=== PATIENT | female | born 1955 | race Caucasian/White ===

== ENCOUNTER 2017-12-11 17:49 | Inpatient (IN) | payer MEDICAID ==
[~2017-12-11] VITALS: Ht 160 cm; Wt 72.6 kg
--- NOTE | ~2017-12-11 | MORECARE ---
CASE MANAGEMENT DISCHARGE SUMMARY PATIENT: AFSANEH STORM UNIT: [id number] ADM DATE: 12/11/17 AGE: 62 : 57 SEX: F ROOM/BED: D.1213 AUTHOR: SATURNINO,DOC PHYSICIAN: REFERRING PHYSICIAN: MAYA MORGAN MD DATE OF SERVICE: 12/12/17 Discharge Plan Patient Name: AFSANEH STORM Facility: [facility]:[place] : 1955 Planned Disposition: Home Anticipated Discharge Date: Discharge Date: Expected LOS: Initial Reviewer: [email or web address] Initial Review Date: 12/12/2017 Generated: 12/12/17 8:17 pm Comments DCP- Discharge Planning Updated by [email or web address]: Reina Triana on 12/12/17 6:[address] Patient Name: AFSANEH STORM Admission Status: ER Accout number: [id number] Admission Date: 12-11-2017 : 1955 Admission Diagnosis:NAUSEA WITH VOMITING, UNSPECIFIED Attending: MAYA MORGAN Current LOS: 1 Anticipated DC Date: Planned Disposition: Home Primary Insurance: MEDICAID [place] Discharge Planning Comments: CM MET WITH PATIENT AT BEDSIDE. PATIENT STATES THAT SHE LIVES AT HOME WITH HER SISTER AND BROTHER. PATIENT STATES THAT SHE HAS A WHEELCHAIR, WALKER AND HOME HEALTH BUT CAN'T TELL ME WHAT COMPANY. TOLD CM TO CHECK WITH SISTER YARITZA. CM WILL CONTINUE TO FOLLOW AND ASSIST NEEDED WITH DISCHARGE PLANNING / NEEDS. Missile Pad Mechanic: Reina Triana DCPIA - Discharge Planning Initial Assessment Updated by [email or web address]: Reina Triana on 12/12/17 7:07 pm * Is the patient Alert and Oriented? Yes * How many steps to enter\exit or inside your home? * PCP UNABLE TO TELL ME * [facility] * Preadmission Environment Home with Family * ADLs Partial Dependent * Partial ADLs (Assistance needed) Ambulation Bathing Dressing Eating Medication Management Toileting * Equipment None * List name and contact numbers for known caregivers / representatives who currently or will assist patient after discharge: YARTIZA [phone] * Verbal permission to speak to the caregivers and representatives has been obtained from the patient. Yes * Community resources currently utilized Home Health * Please name any agencies selected above. UNKNOWN * Additional services required to return to the preadmission environment? No * Can the patient safely return to the preadmission environment? Yes * Has this patient been hospitalized within the prior 30 days at any hospital? No Last DP export: 12/12/17 6:10 Patient Name: AFSANEH STORM Page 26449 at 1917 All edits/amendments must be made on the electronic document DICTATION DATE: 12/12/171916 CATERERS HELPER: VIET 12/12/171916 RPT#: [id number] DC DATE: STATUS: ADM IN [facility] [address] [place] [address] END OF REPORT
--- NOTE | ~2017-12-11 | MORECARE ---
CASE MANAGEMENT DISCHARGE SUMMARY PATIENT: AFSANEH STORM UNIT: [id number] ADM DATE: 12/11/17 AGE: 62 : 57 SEX: F ROOM/BED: D.1213 AUTHOR: CHRIS MATAMOROS PHYSICIAN: REFERRING PHYSICIAN: MAYA MORGAN MD DATE OF SERVICE: 12/12/17 Discharge Plan Patient Name: AFSANEH STORM Facility: [facility]:[place] : 1955 Planned Disposition: Home Anticipated Discharge Date: Discharge Date: Expected LOS: Initial Reviewer: [email or web address] Initial Review Date: 12/12/2017 Generated: 12/12/17 8:10 pm DCPIA - Discharge Planning Initial Assessment Updated by [email or web address]: Reina Triana on 12/12/17 7:07 pm * Is the patient Alert and Oriented? Yes * How many steps to enter\exit or inside your home? * PCP UNABLE TO TELL ME * Pharmacy [facility] * Preadmission Environment Home with Family * ADLs Partial Dependent * Partial ADLs (Assistance needed) Ambulation Bathing Dressing Eating Medication Management Toileting * Equipment None * List name and contact numbers for known caregivers / representatives who currently or will assist patient after discharge: YARITZA [phone] * Verbal permission to speak to the caregivers and representatives has been obtained from the patient. Yes * Community resources currently utilized Home Health * Please name any agencies selected above. UNKNOWN * Additional services required to return to the preadmission environment? No * Can the patient safely return to the preadmission environment? Yes * Has this patient been hospitalized within the prior 30 days at any hospital? No Last DP export: 12/12/17 12:52 Patient Name: AFSANEH STORM Page 93880 at 1910 All edits/amendments must be made on the electronic document DICTATION DATE: 12/12/171909 TRAUMA THERAPIST: VIET 12/12/171909 RPT#: [id number] DC DATE: STATUS: ADM IN [facility] [address] [place] [address] END OF REPORT
--- NOTE | ~2017-12-11 | MORECARE ---
CASE MANAGEMENT DISCHARGE SUMMARY PATIENT: AFSANEH STORM UNIT: [id number] ADM DATE: 12/11/17 AGE: 62 : 57 SEX: F ROOM/BED: D.1213 AUTHOR: SATURNINO,DOC PHYSICIAN: REFERRING PHYSICIAN: MAYA MORGAN MD DATE OF SERVICE: 12/13/17 Discharge Plan Patient Name: AFSANEH STORM Facility: [facility]:[place] : 1955 Planned Disposition: Home Anticipated Discharge Date: Discharge Date: 12/13/2017 Expected LOS: Initial Reviewer: [email or web address] Initial Review Date: 12/12/2017 Generated: 12/13/17 8:56 pm Comments DCP- Discharge Planning Updated by [email or web address]: Reina Triana on 12/12/17 6:[address] Patient Name: AFSANEH STORM Admission Status: ER Accout number: [id number] Admission Date: 12-11-2017 : 1955 Admission Diagnosis:NAUSEA WITH VOMITING, UNSPECIFIED Attending: MAYA MORGAN Current LOS: 1 Anticipated DC Date: Planned Disposition: Home Primary Insurance: MEDICAID [place] Discharge Planning Comments: CM MET WITH PATIENT AT BEDSIDE. PATIENT STATES THAT SHE LIVES AT HOME WITH HER SISTER AND BROTHER. PATIENT STATES THAT SHE HAS A WHEELCHAIR, WALKER AND HOME HEALTH BUT CAN'T TELL ME WHAT COMPANY. TOLD CM TO CHECK WITH SISTER YARITZA. CM WILL CONTINUE TO FOLLOW AND ASSIST NEEDED WITH DISCHARGE PLANNING / NEEDS. Director Heart: Reina Triana DCPIA - Discharge Planning Initial Assessment Updated by [email or web address]: Reina Triana on 12/12/17 7:07 pm * Is the patient Alert and Oriented? Yes * How many steps to enter\exit or inside your home? * PCP UNABLE TO TELL ME * [facility] * Preadmission Environment Home with Family * ADLs Partial Dependent * Partial ADLs (Assistance needed) Ambulation Bathing Dressing Eating Medication Management Toileting * Equipment None * List name and contact numbers for known caregivers / representatives who currently or will assist patient after discharge: YARITZA [phone] * Verbal permission to speak to the caregivers and representatives has been obtained from the patient. Yes * Community resources currently utilized Home Health * Please name any agencies selected above. UNKNOWN * Additional services required to return to the preadmission environment? No * Can the patient safely return to the preadmission environment? Yes * Has this patient been hospitalized within the prior 30 days at any hospital? No Last DP export: 12/12/17 6:17 Patient Name: AFSANEH STORM Page 77418 at 1955 All edits/amendments must be made on the electronic document DICTATION DATE: 12/13/171955 COMMERCIAL LITIGATION PARALEGAL: VIET 12/13/171955 RPT#: [id number] DC DATE:12/13/17 STATUS: DIS IN [facility] [address] [place] [address] END OF REPORT
--- NOTE | ~2017-12-11 | MORECARE ---
CASE MANAGEMENT DISCHARGE SUMMARY PATIENT: AFSANEH STORM UNIT: [id number] ADM DATE: 12/11/17 AGE: 62 : 57 SEX: F ROOM/BED: D.1213 AUTHOR: CHRIS MATAMOROS PHYSICIAN: REFERRING PHYSICIAN: MAYA MORGAN MD DATE OF SERVICE: 12/12/17 Discharge Plan Patient Name: AFSANEH STORM Facility: [facility]:[place] : 1955 Planned Disposition: Home Anticipated Discharge Date: Discharge Date: Expected LOS: Initial Reviewer: [email or web address] Initial Review Date: 12/12/2017 Generated: 12/12/17 2:52 pm Patient Name: AFSANEH STORM Page 70315 at 1352 All edits/amendments must be made on the electronic document DICTATION DATE: 12/12/17 1351 PLATE DRYING MACHINE TENDER: VIET 12/12/17 1351 RPT#: [id number] DC DATE: STATUS: ADM IN [facility] [address] [place] [address] END OF REPORT
[2017-12-11 19:44] LABS: APPEARANCE CLEAR (CLEAR); BILIRUBIN NEGATIVE (NEGATIVE); COLOR YELLOW (YELLOW); GLUCOSE NEGATIVE (NEGATIVE); KETONE NEGATIVE (NEGATIVE); NITRITE NEGATIVE (NEGATIVE); PROTEIN NEGATIVE (NEGATIVE); UROBILINOGEN NORMAL (NORMAL)
[2017-12-11 20:16] LABS: ALBUMIN 2.5 g/dL (3.4-5.0); ALKALINE PHOSPHATASE 66 U/L (46-116); ALT (SGPT) 14 U/L (10-68); BILIRUBIN - TOTAL 0.14 mg/dL (0.2-1.3); CALC OSMOLALITY 281 mosm/kg (275-300); CALCIUM 8.3 mg/dL (8.5-10.1); CARBON DIOXIDE 24.4 mmol/L (21.0-32.0); CHLORIDE - SERUM 108 mmol/L (98-107); GLUCOSE 137 mg/dL (74-106); POTASSIUM - SERUM 4.2 mmol/L (3.5-5.1); SODIUM 141 mmol/L (136-145); UREA NITROGEN 11 mg/dL (7-18); eGFR NON AFRICAN AMERICAN 60 mL/min (90-120)
[2017-12-11 20:19] LABS: AMYLASE - SERUM 72 U/L (25-115); BASOPHILS 0.3 % (0-2); EOSINOPHILS 3.1 % (0-7); HEMATOCRIT 35.4 % (36.0-48.0); HEMOGLOBIN 11.6 g/dL (12-16); IMMATURE GRANULOCYTES 0.3 % (0-5); LIPASE 145 U/L (73-393); LYMPHOCYTES 21.9 % (15-50); MCH 30.7 pg (26.0-34.0); MCHC 32.8 g/dL (31.0-37.0); MCV 93.7 fL (80.0-100.0); MEAN PLATELET VOLUME 10.2 fL (7.4-10.4); MONOCYTES 5.8 % (2-11); NEUTROPHILS 68.6 % (40-80); PLATELET COUNT 196 10x3/uL (130-400); RBC 3.78 10x6/uL (4.00-5.40); RDW 14.1 % (11.5-14.5); WBC 7.4 10x3/uL (4.8-10.8)
[2017-12-11 20:41] LABS: TROPONIN-I < 0.017 ng/mL (0.000-0.060)
[2017-12-12] VITALS (7 sets, daily range): BP systolic 144–187; BP diastolic 70–98; BMI 28.4; BMI 28.3
[2017-12-12] MEDS ORDERED: ZESTRIL40 MG PO (00:04)
[2017-12-12] MEDS ORDERED: ZOCOR20 MG PO (00:05)
[2017-12-12] MEDS ORDERED: HYDROCHLOROTH12.5 M1 PO (00:06)
[2017-12-12] MEDS ORDERED: KEPPRA500 MG PO (00:07)
[2017-12-12 04:55] LABS: BASOPHILS 0.1 % (0-2); HEMATOCRIT 36.6 % (36.0-48.0); HEMOGLOBIN 11.6 g/dL (12-16); IMMATURE GRANULOCYTES 0.2 % (0-5); LYMPHOCYTES 18.6 % (15-50); MCH 30.3 pg (26.0-34.0); MCHC 31.7 g/dL (31.0-37.0); MCV 95.6 fL (80.0-100.0); MEAN PLATELET VOLUME 10.2 fL (7.4-10.4); MONOCYTES 7.7 % (2-11); NEUTROPHILS 71.4 % (40-80); PLATELET COUNT 195 10x3/uL (130-400); RBC 3.83 10x6/uL (4.00-5.40); RDW 14.2 % (11.5-14.5); WBC 8.9 10x3/uL (4.8-10.8)
[2017-12-12 05:17] LABS: ALBUMIN 2.7 g/dL (3.4-5.0); ANION GAP 12.9 mmol/L (8-16); BILIRUBIN - TOTAL 0.24 mg/dL (0.2-1.3); CALCIUM 8.5 mg/dL (8.5-10.1); CARBON DIOXIDE 27.4 mmol/L (21.0-32.0); POTASSIUM - SERUM 4.3 mmol/L (3.5-5.1); PROTEIN - SERUM 7.4 g/dL (6.4-8.2)
[2017-12-13 00:17] VITALS: BP 188/87
[2017-12-13 04:59] VITALS: BP 183/60
[2017-12-13 05:31] LABS: ANION GAP 15.4 mmol/L (8-16); CALCIUM 8.3 mg/dL (8.5-10.1); CARBON DIOXIDE 23.9 mmol/L (21.0-32.0); CREATININE - SERUM 0.9 mg/dL (0.6-1.3); HEMATOCRIT 36.3 % (36.0-48.0); HEMOGLOBIN 11.8 g/dL (12-16); MCH 30.6 pg (26.0-34.0); MCHC 32.5 g/dL (31.0-37.0); MCV 94.3 fL (80.0-100.0); MEAN PLATELET VOLUME 10.4 fL (7.4-10.4); NEUTROPHILS 66.7 % (40-80); PLATELET COUNT 156 10x3/uL (130-400); POTASSIUM - SERUM 4.3 mmol/L (3.5-5.1); RBC 3.85 10x6/uL (4.00-5.40); RDW 13.9 % (11.5-14.5); WBC 6.8 10x3/uL (4.8-10.8)
[2017-12-13 07:19] VITALS: BP 181/70
[2017-12-13 11:12] VITALS: BP 152/72
[2017-12-13 14:39] VITALS: Ht 160 cm; Wt 72.6 kg
[2017-12-13 16:48] VITALS: BP 146/72
[2017-12-14 10:13] LABS: CEA 3.3 ng/mL (0.0-4.7)
[2017-12-14 11:10] LABS: HEPATITIS C ANTIBODY <0.1 (0.0-0.9)
== END 2017-12-13 17:21 | disposition home or self-care (01) | DRG 376 ==
LOC: D.ER 17:49 → EDBD 17:49 → D.M3 22:23
PROVIDERS: Family Medicine; Internal Medicine Gastroenterology; Internal Medicine Hematology & Oncology; Internal Medicine Nephrology
PROC: 0DBP8ZX Excision of Rectum, Via Natural or Artificial Opening Endoscopic, Diagnostic (ICD-10-PCS; principal; 2017-12-13 11:30)
DX: C20 Malignant neoplasm of rectum (principal); D64.9 Anemia, unspecified; I10 Essential (primary) hypertension; E78.5 Hyperlipidemia, unspecified; E11.9 Type 2 diabetes mellitus without complications; I69.320 Aphasia following cerebral infarction; K21.9 Gastro-esophageal reflux disease without esophagitis; Z72.89 Other problems related to lifestyle

== ENCOUNTER 2017-12-17 09:02 | Inpatient (IN) | payer MEDICAID ==
[~2017-12-17] VITALS: Ht 152.4 cm; Wt 83.5 kg
--- NOTE | ~2017-12-17 | MORECARE ---
CASE MANAGEMENT DISCHARGE SUMMARY PATIENT: AFSANEH STORM UNIT: [id number] ADM DATE: 12/17/17 AGE: 62 : 57 SEX: F ROOM/BED: D.2222 AUTHOR: CHRIS MATAMOROS PHYSICIAN: REFERRING PHYSICIAN: KAYLAN FORD MD DATE OF SERVICE: 12/20/17 Discharge Plan Patient Name: AFSANEH STORM [facility] : 1955 Planned Disposition: Home Anticipated Discharge Date: 12/20/17 Discharge Date: Expected LOS: 3 Initial Reviewer: [email or web address] Initial Review Date: 12/20/2017 Generated: 12/20/17 1:58 pm External Providers External Provider: OTHER-OTHER Next Contact Date: Service Request Date: Service Type: Resolution: Reviewer: Comments: External Provider: [facility] Next Contact Date: Service Request Date: Service Type: Resolution: Reviewer: Comments: Patient Name: AFSANEH STORM Page 19545 at 1258 All edits/amendments must be made on the electronic document DICTATION DATE: 12/20/17 1257 ACCOUNT MANAGER EMPLOYEE BENEFITS: VIET 12/20/17 1257 RPT#: [id number] DC DATE: STATUS: ADM IN [facility] [address] [place] [address] END OF REPORT
--- NOTE | ~2017-12-17 | OP ---
PATIENT NAME: AFSANEH STORM MEDICAL RECORD: [id number] :57 LOCATION:D.MS [place] ADMISSION DATE:12/17/17 SURGEON: ROBLES FORD MD DATE OF OPERATION: 12/17/2017 PREOPERATIVE DIAGNOSES: 1. Rectal cancer. 2. History of CVA with expressive aphasia. 3. Diabetes mellitus. 4. Hyperlipidemia. 5. Hypertension. 6. GERD. 7. Alcohol dependence. POSTOPERATIVE DIAGNOSES: 1. Rectal cancer. 2. History of CVA with expressive aphasia. 3. Diabetes mellitus. 4. Hyperlipidemia. 5. Hypertension. 6. GERD. 7. Alcohol dependence. PROCEDURES: 1. Laparoscopic to open low anterior resection with diverting ileostomy. 2. Supracervical total abdominal hysterectomy. SURGEON: Robles Ford MD IMMIGRATION CASE WORKER: Sarah Domínguez APRN REPORT OF OPERATION: The patient's abdomen and pelvis were prepped and draped in sterile fashion. A skin incision was made in the lower midline. Electrocautery was used to dissect through the subcutaneous tissues and fascia and then we entered the abdominal cavity. Once in the abdomen, GelPort was inserted with a 5-mm trocar within it. With the GelPort in place, we placed a 5-mm trocar in the right lateral abdomen and a 12-mm trocar in the right lower quadrant just anterior to the anterior-superior iliac crest. We tried to manage the patient's pelvis, but the pelvis was very tight and the patient had large masses on the uterus, which were likely fibroids, but they were so large and pendulous that they were making it difficult to visualize anything. At this point, we discontinued trying a laparoscopic procedure. The ports and insufflation were then removed. The lower midline incision was extended up to the umbilicus and a large Brett drape was inserted. We still tried to manipulate the uterus on the way, but it was covering up somewhat to the tissue that we could not see, so I elected at this point to take out the patient's uterus. The round ligament and the lateral vessels were all clamped and tied off with 3-0 silk ties. The ovaries were left in place. We then freed up tissue overlying the uterus, and after clamping the distal uterus, we transected it using an electrocautery. The distal uterus was oversewn using running #1 Vicryls times 2. At the conclusion of this, the uterus appeared to be intact with no sign of any bleeding. The uterus was sent off for permanent specimen. At this point, we could visualize in the patient's pelvis. We pulled up the rectum and freed up the peritoneum on each side. Once we did this, a window was made on the base of the proximal rectum and this was transected with a 60 blue OPERATIVE REPORT [id number] AFSANEH STORM K load BERNABE stapler. The mesentery was taken down with sequential clamp and tie technique using 3-0 silks. We then entered the posterior avascular plane of the mesorectum and dissected down through this. Once we got this freed up, then we went anterior to the rectum, opened up this fascial layer, and entered the anterior aspect overlying the rectal tissue. This just left the lateral stalk vessels, which were taken down with Harmonic scalpel. At this point, we had the rectum pulled up and I was able to feel past the mass. A window was made in the mesorectum and a 30 blue load TA stapler was used to transect the rectal tissue. The underlying mesenteric tissue was clamped and tied with 3-0 silk. We sent this off for frozen specimen and it showed that the distal margin did have a tumor present even though grossly it did not appear to be present in the tissue. I then took off another 1.5 cm of tissue after dissecting out the distal rectum and this was clamped off with a 30 blue load TA stapler. This grossly had no sign of any abnormalities, and due to the low nature in the pelvis of this and remaining rectal tissue, I elected not to send it off for frozen because I was not prepared to perform an APR on the patient at this time. I went ahead and grasped the distal sigmoid colon and opened this up using electrocautery. A 29 EEA anvil was inserted and the distal end of the sigmoid colon was oversewn in a pursestring fashion with a 2-0 Prolene. We then inserted the anal dilators into the rectum followed by the EEA stapler. An end-to-end anastomosis was performed with a 29 EEA stapler. At the conclusion of this, we had 2 solid rings of tissue. We then inspected the anastomosis under water by instilling air in the rectum and there was no sign of a leak. We then irrigated out the pelvis and abdomen and assured there was no sign of any bleeding, which there was none. The small bowel was run from the terminal ileum proximally for about 30 cm. At this point, we clamped off this portion of the small bowel. An opening was made in the anterior abdominal wall on the right upper quadrant, and using electrocautery, we dissected through the subcutaneous tissues and anterior fascia in a cruciate fashion. We then split the muscle longitudinally with its fibers and then opened up the posterior fascia transversely. We then eviscerated this portion of small bowel through this opening for loop diverting ileostomy. The midline fascia was then closed with running #1 loop PDS times 2. The subcutaneous tissues were irrigated out thoroughly with normal saline and then the skin incisions were closed with elise. We then matured the loop ileostomy in a Lisandra fashion using multiple interrupted 4-0 Vicryls. A 14-Jamaican red rubber catheter was used as a bridge and placed in a circular fashion overlying the tissue, being brought together by 3-0 silks. This ring of red rubber catheter and the ileostomy were then placed in ostomy bag and the dressings were applied. COMPLICATIONS: None. CONDITION: Stable. ANESTHESIA: General endotracheal. BLOOD LOSS: 150 mL. TRANSINT:[id number] Voice Confirmation ID: [id number] DOCUMENT ID: [id number] OPERATIVE REPORT [id number] AFSANEH STORM CHRISTIAN MD at 0916 CC: MARLYN PEREZ MD and MARY JO KERR DO [id number] DICTATION DATE: 12/17/17 1541 CRIMINAL RESEARCHER: 12/17/17 1640 ADM IN [facility] [address] [place] [address]
--- NOTE | ~2017-12-17 | MORECARE ---
CASE MANAGEMENT DISCHARGE SUMMARY PATIENT: AFSANEH STORM UNIT: [id number] ADM DATE: 12/17/17 AGE: 62 : 57 SEX: F ROOM/BED: D.2222 AUTHOR: CHRIS MATAMOROS PHYSICIAN: REFERRING PHYSICIAN: KAYLAN FORD MD DATE OF SERVICE: 12/20/17 Discharge Plan Patient Name: AFSANEH STORM Facility: [facility]:[place] : 1955 Planned Disposition: Home Anticipated Discharge Date: 12/20/17 Discharge Date: Expected LOS: 3 Initial Reviewer: [email or web address] Initial Review Date: 12/20/2017 Generated: 12/20/17 2:16 pm Comments DCP- Discharge Planning Updated by [email or web address]: Daisy Wood on 12/20/17 12:[address] Patient Name: AFSANEH STORM Admission Status: Elective Accout number: [id number] Admission Date: 12-17-2017 : 1955 Admission Diagnosis:MALIGNANT NEOPLASM OF RECTUM Attending: KAYLAN FORD Current LOS: 3 Anticipated DC Date: 12-20-2017 Planned Disposition: Home Primary Insurance: MEDICAID [place] Discharge Planning Comments: CM met with patient, she is alone in the room. She has expressive aphasia and gives me permission to call her sister for assessment. I spoke with her sister, Mary, and her sister states she lives with her. States she has a personal healthcare market consultant that lives in the home ([facility]) and also has [facility] that comes in 5 days a week for house keeping and bathing. She would like home health services for ostomy care. I called and spoke with Lily at [facility]. I called [facility] and spoke with Josh and orders sent for Ostomy supplies. Mary states she will pick patient up at discharge. Walk test completed per RT and she does not qualify for home oxygen. CM will continue to follow and assist with discharge planning/needs. She will discharge home today with home health. Hold Worker: Daisy Wood DCPIA - Discharge Planning Initial Assessment Updated by [email or web address]: Daisy Wood on 12/20/17 12:59 pm * Is the patient Alert and Oriented? Yes * How many steps to enter\\exit or inside your home? * PCP "Roula" at [facility] * Pharmacy [facility] * Preadmission Environment Home with Family * ADLs Partial Dependent * Partial ADLs (Assistance needed) Ambulation Bathing Dressing Medication Management * Equipment Other Walker * Other Equipment Blood Pressure machine * List name and contact numbers for known caregivers / representatives who currently or will assist patient after discharge: Mary sparks - [phone] * Verbal permission to speak to the caregivers and representatives has been obtained from the patient. Yes * Community resources currently utilized Private Duty Care * Please name any agencies selected above. [facility] * Additional services required to return to the preadmission environment? Yes * Can the patient safely return to the preadmission environment? Yes * Has this patient been hospitalized within the prior 30 days at any hospital? No Last DP export: 12/20/17 12:07 p Patient Name: AFSANEH STORM Page 62629 at 1316 All edits/amendments must be made on the electronic document DICTATION DATE: 12/20/17 1316 TELEVISION PRODUCTION CLERK: VIET 12/20/17 1316 RPT#: [id number] DC DATE: STATUS: ADM IN [facility] [address] [place] [address] END OF REPORT
--- NOTE | ~2017-12-17 | MORECARE ---
CASE MANAGEMENT DISCHARGE SUMMARY PATIENT: AFSANEH STORM UNIT: [id number] ADM DATE: 12/17/17 AGE: 62 : 57 SEX: F ROOM/BED: D.2222 AUTHOR: CHRIS MATAMOROS PHYSICIAN: REFERRING PHYSICIAN: KAYLAN FORD MD DATE OF SERVICE: 12/20/17 Discharge Plan Patient Name: AFSANEH STORM [facility] [facility] 1955 Planned Disposition: Home Anticipated Discharge Date: 12/20/17 Discharge Date: Expected LOS: 3 Initial Reviewer: [email or web address] Initial Review Date: 12/20/2017 Generated: 12/20/17 2:07 pm DCPIA - Discharge Planning Initial Assessment Updated by [email or web address]: Daisy Wood on 12/20/17 12:59 pm * Is the patient Alert and Oriented? Yes * How many steps to enter\\exit or inside your home? * PCP "Roula" at [facility] * Pharmacy [facility] on [facility]/[place] * Preadmission Environment Home with Family * ADLs Partial Dependent * Partial ADLs (Assistance needed) Ambulation Bathing Dressing Medication Management * Equipment Other Walker * Other Equipment Blood Pressure machine * List name and contact numbers for known caregivers / representatives who currently or will assist patient after discharge: Mary [facility] - [phone] * Verbal permission to speak to the caregivers and representatives has been obtained from the patient. Yes * Community resources currently utilized Private Duty Care * Please name any agencies selected above. [facility] * Additional services required to return to the preadmission environment? Yes * Can the patient safely return to the preadmission environment? Yes * Has this patient been hospitalized within the prior 30 days at any hospital? No Last DP export: 12/20/17 11:58 a Patient Name: AFSANEH STORM Page 40724 at 1307 All edits/amendments must be made on the electronic document DICTATION DATE: 12/20/17 1307 AUTOMOTIVE TIRE TECHNICIAN: VIET 12/20/17 1307 RPT#: [id number] DC DATE: STATUS: ADM IN [address] [place] [address] END OF REPORT
--- NOTE | ~2017-12-17 | MORECARE ---
CASE MANAGEMENT DISCHARGE SUMMARY PATIENT: AFSANEH STORM UNIT: [id number] ADM DATE: 12/17/17 AGE: 62 : 57 SEX: F ROOM/BED: D.2222 AUTHOR: SATURNINODOC PHYSICIAN: REFERRING PHYSICIAN: KAYLAN FORD MD DATE OF SERVICE: 12/20/17 Discharge Plan Patient Name: AFSANEH STORM Facility: [facility]:[place] : 1955 Planned Disposition: Home Anticipated Discharge Date: 12/20/17 Discharge Date: Expected LOS: 3 Initial Reviewer: [email or web address] Initial Review Date: 12/20/2017 Generated: 12/20/17 3:27 pm Comments DCP- Discharge Planning Updated by [email or web address]: Daisy Wood on 12/20/17 1:[address] Patient Name: AFSANEH STORM Admission Status: Elective Accout number: [id number] Admission Date: 12-17-2017 : 1955 Admission Diagnosis:MALIGNANT NEOPLASM OF RECTUM Attending: KAYLAN FORD Current LOS: 3 Anticipated DC Date: 12-20-2017 Planned Disposition: Home Primary Insurance: MEDICAID [place] Discharge Planning Comments: Discharging home today with [facility]. I have asked the nurse to supply 4 days of ostomy supplies. Family to transport home. CM will continue to follow and assist with discharge planning/needs. Billing Clerk: Daisy Wood DCP- Discharge Planning Updated by [email or web address]: Daisy Wood on 12/20/17 12:[address] Patient Name: AFSANEH STORM Admission Status: Elective Accout number: [id number] Admission Date: 12-17-2017 : 1955 Admission Diagnosis:MALIGNANT NEOPLASM OF RECTUM Attending: KAYLAN FORD Current LOS: 3 Anticipated DC Date: 12-20-2017 Planned Disposition: Home Primary Insurance: MEDICAID [place] Discharge Planning Comments: CM met with patient, she is alone in the room. She has expressive aphasia and gives me permission to call her sister for assessment. I spoke with her sister, Mary, and her sister states she lives with her. States she has a personal care transition coordinator that lives in the home ([facility]) and also has [facility] that comes in 5 days a week for house keeping and bathing. She would like home health services for ostomy care. I called and spoke with Lily at [facility]. I called [facility] and spoke with Josh and orders sent for Ostomy supplies. Mary states she will pick patient up at discharge. Walk test completed per RT and she does not qualify for home oxygen. CM will continue to follow and assist with discharge planning/needs. She will discharge home today with home health. Billing Clerk: Daisy Wood DCPIA - Discharge Planning Initial Assessment Updated by [email or web address]: Daisy Wood on 12/20/17 12:59 pm * Is the patient Alert and Oriented? Yes * How many steps to enter\\exit or inside your home? * PCP "Roula" at [facility] * Pharmacy [facility] on [facility]/[place] * Preadmission Environment Home with Family * ADLs Partial Dependent * Partial ADLs (Assistance needed) Ambulation Bathing Dressing Medication Management * Equipment Other Walker * Other Equipment Blood Pressure machine * List name and contact numbers for known caregivers / representatives who currently or will assist patient after discharge: Mary - [facility] - [phone] * Verbal permission to speak to the caregivers and representatives has been obtained from the patient. Yes * Community resources currently utilized Private Duty Care * Please name any agencies selected above. [facility] * Additional services required to return to the preadmission environment? Yes * Can the patient safely return to the preadmission environment? Yes * Has this patient been hospitalized within the prior 30 days at any hospital? No Last DP export: 12/20/17 12:16 p Patient Name: AFSANEH STORM Page 84174 at 1427 All edits/amendments must be made on the electronic document DICTATION DATE: 12/20/17 142 SOAP BOILER: VIET 12/20/171425 RPT#: [id number] DC DATE: STATUS: ADM IN [facility] [address] [place] [address] END OF REPORT
--- NOTE | ~2017-12-17 | MORECARE ---
CASE MANAGEMENT DISCHARGE SUMMARY PATIENT: AFSANEH STORM UNIT: [id number] ADM DATE: 12/17/17 AGE: 62 : 57 SEX: F ROOM/BED: D.2222 AUTHOR: CHRIS MATAMOROS PHYSICIAN: REFERRING PHYSICIAN: KAYLAN FORD MD DATE OF SERVICE: 12/23/17 Discharge Plan Patient Name: AFSANEH STORM Facility: [facility]:[place] : 1955 Planned Disposition: Home Anticipated Discharge Date: 12/20/17 Discharge Date: 12/20/2017 Expected LOS: 3 Initial Reviewer: [email or web address] Initial Review Date: 12/20/2017 Generated: 12/23/17 5:47 pm Comments DCP- Discharge Planning Updated by [email or web address]: Daisy Wood on 12/20/17 2:[address] Patient Name: AFSANEH STORM Admission Status: Elective Accout number: [id number] Admission Date: 12-17-2017 : 1955 Admission Diagnosis:MALIGNANT NEOPLASM OF RECTUM Attending: KAYLAN FORD Current LOS: 3 Anticipated DC Date: 12-20-2017 Planned Disposition: Home Primary Insurance: MEDICAID [place] Discharge Planning Comments: Discharging home today with [facility]. I have asked the nurse to supply 4 days of ostomy supplies. Family to transport home. CM will continue to follow and assist with discharge planning/needs. Inspector Repairer Sandstone: Daisy Wood DCP- Discharge Planning Updated by [email or web address]: Daisy Wood on 12/20/17 1:[address] Patient Name: AFSANEH STORM Admission Status: Elective Accout number: [id number] Admission Date: 12-17-2017 : 1955 Admission Diagnosis:MALIGNANT NEOPLASM OF RECTUM Attending: KAYLAN FORD Current LOS: 3 Anticipated DC Date: 12-20-2017 Planned Disposition: Home Primary Insurance: MEDICAID [place] Discharge Planning Comments: CM met with patient, she is alone in the room. She has expressive aphasia and gives me permission to call her sister for assessment. I spoke with her sister, Mary, and her sister states she lives with her. States she has a personal ostomy care nurse that lives in the home ([facility]) and also has [facility] that comes in 5 days a week for house keeping and bathing. She would like home health services for ostomy care. I called and spoke with Lily at [facility]. I called [facility] and spoke with Josh and orders sent for Ostomy supplies. Mary states she will pick patient up at discharge. Walk test completed per RT and she does not qualify for home oxygen. CM will continue to follow and assist with discharge planning/needs. She will discharge home today with home health. Inspector Repairer Sandstone: Daisy Wood DCPIA - Discharge Planning Initial Assessment Updated by [email or web address]: Daisy Wood on 12/20/17 12:59 pm * Is the patient Alert and Oriented? Yes * How many steps to enter\\exit or inside your home? * PCP "Roula" at [facility] * Pharmacy [facility]/[place] * Preadmission Environment Home with Family * ADLs Partial Dependent * Partial ADLs (Assistance needed) Ambulation Bathing Dressing Medication Management * Equipment Other Walker * Other Equipment Blood Pressure machine * List name and contact numbers for known caregivers / representatives who currently or will assist patient after discharge: Mary - - [phone] * Verbal permission to speak to the caregivers and representatives has been obtained from the patient. Yes * Community resources currently utilized Private Duty Care * Please name any agencies selected above. [facility] * Additional services required to return to the preadmission environment? Yes * Can the patient safely return to the preadmission environment? Yes * Has this patient been hospitalized within the prior 30 days at any hospital? No Last DP export: 12/20/17 2:27 p Patient Name: AFSANEH STORM Page 65351 at 1647 All edits/amendments must be made on the electronic document DICTATION DATE: 12/23/171646 COLOR STRAINING BAG WASHER: VITE 12/23/171646 RPT#: [id number] DC DATE:12/20/17 STATUS: DIS IN [facility] [address] [place] [address] END OF REPORT
[~2017-12-17 09:02] MED LIST: HYDROCHLOROTH12.5 M1 PO; KEPPRA500 MG PO; ZESTRIL40 MG PO; ZOCOR20 MG PO
[2017-12-17 09:34] LABS: BASOPHILS 0.1 % (0-2); EOSINOPHILS 2.3 % (0-7); HEMATOCRIT 36.6 % (36.0-48.0); HEMOGLOBIN 11.9 g/dL (12-16); IMMATURE GRANULOCYTES 0.1 % (0-5); LYMPHOCYTES 23.8 % (15-50); MCH 30.4 pg (26.0-34.0); MCHC 32.5 g/dL (31.0-37.0); MCV 93.4 fL (80.0-100.0); MEAN PLATELET VOLUME 10.2 fL (7.4-10.4); MONOCYTES 8.2 % (2-11); NEUTROPHILS 65.5 % (40-80); RBC 3.92 10x6/uL (4.00-5.40); RDW 14.1 % (11.5-14.5); WBC 7.5 10x3/uL (4.8-10.8)
[2017-12-17 09:41] LABS: ANION GAP 10.2 mmol/L (8-16); CALCIUM 8.6 mg/dL (8.5-10.1); CARBON DIOXIDE 29.8 mmol/L (21.0-32.0)
[2017-12-17 09:42] LABS: PLATELET COUNT 207 10x3/uL (130-400)
[2017-12-17 10:31] LABS: APTT 26.5 SECONDS (22.8-39.4); INR 1.15 (0.85-1.17); PROTIME 14.3 SECONDS (11.6-15.0)
[2017-12-17 10:51] VITALS: BP 139/68; BMI 36.2
[2017-12-17 16:37] VITALS: BP 100/61
[2017-12-18 05:57] LABS: BASOPHILS 0 % (0-2); EOSINOPHILS 0 % (0-7); HEMATOCRIT 33.5 % (36.0-48.0); HEMOGLOBIN 10.6 g/dL (12-16); IMMATURE GRANULOCYTES 0.2 % (0-5); LYMPHOCYTES 4.5 % (15-50); MCH 30.1 pg (26.0-34.0); MCHC 31.6 g/dL (31.0-37.0); MCV 95.2 fL (80.0-100.0); MEAN PLATELET VOLUME 10.2 fL (7.4-10.4); MONOCYTES 5.5 % (2-11); NEUTROPHILS 89.8 % (40-80); PLATELET COUNT 189 10x3/uL (130-400); RBC 3.52 10x6/uL (4.00-5.40); RDW 14.6 % (11.5-14.5)
[2017-12-18 05:58] LABS: WBC 12.5 10x3/uL (4.8-10.8)
[2017-12-18 06:00] VITALS: BP 151/70
[2017-12-18 06:17] LABS: ANION GAP 15.2 mmol/L (8-16); CALCIUM 7.5 mg/dL (8.5-10.1); CARBON DIOXIDE 22.4 mmol/L (21.0-32.0); CREATININE - SERUM 1.2 mg/dL (0.6-1.3); POTASSIUM - SERUM 4.6 mmol/L (3.5-5.1)
[2017-12-18 08:46] VITALS: BP 143/80
[2017-12-18 12:30] VITALS: BP 154/65
[2017-12-18 14:11] VITALS: Ht 152.4 cm; Wt 83.5 kg
[2017-12-18 15:45] VITALS: BP 139/49
[2017-12-18 20:00] VITALS: BP 137/63
[2017-12-19 04:24] VITALS: BP 166/88
[2017-12-19 07:40] LABS: BASOPHILS 0.1 % (0-2); EOSINOPHILS 0.2 % (0-7); HEMOGLOBIN 8.5 g/dL (12-16); IMMATURE GRANULOCYTES 0.8 % (0-5); LYMPHOCYTES 7.4 % (15-50); MCH 30.4 pg (26.0-34.0); MCHC 31.8 g/dL (31.0-37.0); MCV 95.4 fL (80.0-100.0); MONOCYTES 6.5 % (2-11); PLATELET COUNT 169 10x3/uL (130-400); RDW 14.7 % (11.5-14.5); WBC 11.1 10x3/uL (4.8-10.8)
[2017-12-19 07:48] LABS: ANION GAP 8.5 mmol/L (8-16); CALCIUM 7.8 mg/dL (8.5-10.1); CARBON DIOXIDE 26.6 mmol/L (21.0-32.0); POTASSIUM - SERUM 4.1 mmol/L (3.5-5.1)
[2017-12-19 07:53] LABS: HEMATOCRIT 26.7 % (36.0-48.0)
[2017-12-19 09:32] VITALS: BP 147/77
[2017-12-19 12:00] VITALS: BP 169/70
[2017-12-19 21:26] VITALS: BP 172/74
[2017-12-20 05:11] VITALS: BP 150/51
[2017-12-20 06:22] LABS: CALC OSMOLALITY 290 mosm/kg (275-300); CALCIUM 7.9 mg/dL (8.5-10.1); CARBON DIOXIDE 23.4 mmol/L (21.0-32.0); CHLORIDE - SERUM 114 mmol/L (98-107); GLUCOSE 87 mg/dL (74-106); POTASSIUM - SERUM 3.9 mmol/L (3.5-5.1); SODIUM 146 mmol/L (136-145); UREA NITROGEN 16 mg/dL (7-18); eGFR NON AFRICAN AMERICAN 90 mL/min (90-120)
[2017-12-20 06:23] LABS: CREATININE - SERUM 0.7 mg/dL (0.6-1.3)
[2017-12-20 06:46] LABS: BASOPHILS 0.1 % (0-2); EOSINOPHILS 1.5 % (0-7); HEMATOCRIT 26.6 % (36.0-48.0); HEMOGLOBIN 8.3 g/dL (12-16); IMMATURE GRANULOCYTES 0.5 % (0-5); LYMPHOCYTES 12.3 % (15-50); MCH 30.2 pg (26.0-34.0); MCHC 31.2 g/dL (31.0-37.0); MCV 96.7 fL (80.0-100.0); MONOCYTES 6.6 % (2-11); PLATELET COUNT 182 10x3/uL (130-400); RBC 2.75 10x6/uL (4.00-5.40); RDW 15.1 % (11.5-14.5); WBC 9.6 10x3/uL (4.8-10.8)
[2017-12-20 08:47] VITALS: BP 166/81
[2017-12-20] MEDS ORDERED: NORCO-10 PO (12:25)
[2017-12-20 12:46] VITALS: BP 158/77
[2017-12-20 16:27] VITALS: BP 175/84
== END 2017-12-20 19:10 | disposition home health service (06) | DRG 331 ==
LOC: D.MS 09:02 → D.SDCHOLD 09:02 → D.MS 16:10
PROVIDERS: Anesthesiology; Surgery
PROC: 0DBP0ZZ Excision of Rectum, Open Approach (ICD-10-PCS; principal; 2017-12-17 12:20)
PROC: 0D1B0Z4 Bypass Ileum to Cutaneous, Open Approach (ICD-10-PCS; 2017-12-17 12:20)
PROC: 0UT90ZL Resection of Uterus, Supracervical, Open Approach (ICD-10-PCS; 2017-12-17 12:20)
DX: C20 Malignant neoplasm of rectum (principal); Z53.31 Laparoscopic surgical procedure converted to open procedure; I69.320 Aphasia following cerebral infarction; I10 Essential (primary) hypertension; E11.9 Type 2 diabetes mellitus without complications; E78.5 Hyperlipidemia, unspecified; K21.9 Gastro-esophageal reflux disease without esophagitis; D64.9 Anemia, unspecified

== ENCOUNTER 2017-12-25 12:53 | Emergency (ER) | payer MEDICAID ==
[~2017-12-25] VITALS: Ht 152.4 cm; Wt 81.8 kg
[~2017-12-25 12:53] MED LIST changes: +NORCO-10 PO
[2017-12-25 12:58] VITALS: Ht 152.4 cm; Wt 81.8 kg
[2017-12-25 14:14] LABS: BILIRUBIN - TOTAL 0.4 mg/dL (0.2-1.3); CALCIUM 8.3 mg/dL (8.5-10.1); CREATININE - SERUM 0.9 mg/dL (0.6-1.3); PROTEIN - SERUM 6.8 g/dL (6.4-8.2)
[2017-12-25 14:16] LABS: BASOPHILS 0.1 % (0-2); EOSINOPHILS 3.5 % (0-7); HEMATOCRIT 34.6 % (36.0-48.0); HEMOGLOBIN 10.6 g/dL (12-16); IMMATURE GRANULOCYTES 0.4 % (0-5); LYMPHOCYTES 10.5 % (15-50); MCH 29.9 pg (26.0-34.0); MCHC 30.6 g/dL (31.0-37.0); MCV 97.5 fL (80.0-100.0); MEAN PLATELET VOLUME 9.7 fL (7.4-10.4); MONOCYTES 11.3 % (2-11); NEUTROPHILS 74.2 % (40-80); RBC 3.55 10x6/uL (4.00-5.40); RDW 14.5 % (11.5-14.5); WBC 8.4 10x3/uL (4.8-10.8)
[2017-12-25 14:30] LABS: PLATELET COUNT 262 10x3/uL (130-400)
[2017-12-25 15:33] LABS: APPEARANCE HAZY (CLEAR); BILIRUBIN NEGATIVE (NEGATIVE); COLOR YELLOW (YELLOW); GLUCOSE NEGATIVE (NEGATIVE); KETONE NEGATIVE (NEGATIVE); NITRITE POSITIVE (NEGATIVE); PROTEIN 1+ mg/dL (NEGATIVE); SPECIFIC GRAVITY 1.025 (1.005-1.020); UROBILINOGEN NORMAL (NORMAL)
[2017-12-25 15:34] LABS: WHITE CELLS - URINE >50 /hpf (0-5)
[2017-12-25 15:46] LABS: BACTERIA MANY /hpf (NONE SEEN); EPITHELIAL CELLS 0-5 /hpf (0-5); RED CELLS - URINE 0-5 /hpf (0-5)
[2017-12-25] MEDS ORDERED: MACROBID100 MG PO (16:44)
[2017-12-25 16:48] VITALS: BP 136/87
== END 2017-12-25 16:52 | disposition home or self-care (01) ==
LOC: D.ER 12:53
PROVIDERS: Family Medicine
DX: N39.0 Urinary tract infection, site not specified (principal); R31.9 Hematuria, unspecified; Z93.3 Colostomy status; Z86.73 Personal history of transient ischemic attack (TIA), and cerebral infarction without residual deficits

== ENCOUNTER 2018-02-13 08:45 | Inpatient (IN) | payer MEDICAID ==
[2018-02-12 13:01] LABS: ANION GAP 17.9 mmol/L (8-16); CALCIUM 8.9 mg/dL (8.5-10.1); CARBON DIOXIDE 22.4 mmol/L (21.0-32.0); CREATININE - SERUM 1.2 mg/dL (0.6-1.3); POTASSIUM - SERUM 4.3 mmol/L (3.5-5.1)
[2018-02-12 13:52] LABS: BASOPHILS 0.1 % (0-2); EOSINOPHILS 2.4 % (0-7); HEMATOCRIT 38.4 % (36.0-48.0); HEMOGLOBIN 12.1 g/dL (12-16); IMMATURE GRANULOCYTES 0.3 % (0-5); LYMPHOCYTES 27.1 % (15-50); MCHC 31.5 g/dL (31.0-37.0); MCV 95.3 fL (80.0-100.0); MEAN PLATELET VOLUME 9.8 fL (7.4-10.4); MONOCYTES 5.7 % (2-11); NEUTROPHILS 64.4 % (40-80); PLATELET COUNT 231 10x3/uL (130-400); RBC 4.03 10x6/uL (4.00-5.40); RDW 15.8 % (11.5-14.5); WBC 7.9 10x3/uL (4.8-10.8)
[~2018-02-13] VITALS: Ht 162.6 cm; Wt 68.0 kg
--- NOTE | ~2018-02-13 | OP ---
PATIENT NAME: AFSANEH STORM MEDICAL RECORD: [id number] :57 LOCATION:D.MS [id number] ADMISSION DATE:02/13/18 SURGEON: ROBLES FORD MD DATE OF OPERATION: 02/13/2018 PREOPERATIVE DIAGNOSES: 1. Rectal cancer with diverting ileostomy. 2. Hypertension. 3. Diabetes mellitus. 4. History of CVA with aphasia. POSTOPERATIVE DIAGNOSES: 1. Rectal cancer with diverting ileostomy. 2. Hypertension. 3. Diabetes mellitus. 4. History of CVA with aphasia. PROCEDURE: 1. Left subclavian vein port placement with fluoro. 2. Ileostomy reversal. SURGEON: Robles Ford MD REPORT OF PROCEDURE: The patient's left chest was prepped and draped in sterile fashion. A needle was used to cannulate the left subclavian vein and a guidewire was advanced with ease. Fluoro was used to note that the wire was in good position in the venous system. A skin incision was made on the left superior lateral chest and a subcutaneous pouch was made over the pectoral fascia. The catheter was tunneled between this pouch and the wire exit site. The catheter was sutured to the pectoral fascia using interrupted 3-0 Prolenes. The catheter was cut with a beveled tip at 22 cm. The dilator trocar device was then placed over the wire and the wire and dilator were removed. The catheter tip was advanced through the trocar. The trocar was eventually removed and at that point Fluoro was used to note that the catheter tip resting in good position at the right atrial superior vena caval junction. The catheter aspirated nonpulsatile dark blood and flushed easily with heparinized saline. The subcutaneous tissues were reapproximated with interrupted 3-0 Vicryl and skin was closed with running subcutaneous 5-0 Monocryl. The port was accessed and flushed one last time and then a dressing was applied. At this point, the abdomen was prepped and draped in sterile fashion including the patient's right lower quadrant ileostomy. The ileostomy was scored out using electrocautery. The ileostomy was freed up from the surrounding fatty tissue all the way down to the fascia. We then the released the attachments of the fascia until we entered the abdominal cavity. At this point, the ileostomy was easily eviscerated through the fascia and out on to the abdominal cavity. We performed a asur-ql-syyg anastomosis with a 75 blue load BERNABE stapler and then took off the ends of the bowel including the ileostomy site using a 75 blue load BERNABE stapler. The mesentery was taken down with sequential clamp and tie technique with 2-0 silks. The ileostomy was then sent off for permanent specimen. We then carefully oversewed the staple lines and placed the anastomosis back into the abdominal cavity through the fascial opening. The fascial defect was then reapproximated with interrupted 0 Prolenes. The wound was irrigated out with normal saline and care was taken to assure there was no sign of any bleeding. The subcutaneous tissues under the skin were then reapproximated in a pursestring fashion with 2-0 Vicryl and the wound was packed with Telfa. OPERATIVE REPORT [id number] AFSANEH STORM COMPLICATIONS: None. CONDITION: Stable. ANESTHESIA: General endotracheal. BLOOD LOSS: 100 mL. TRANSINT:[id number] Voice Confirmation ID: [id number] DOCUMENT ID: [id number] ROBLES FORD MD at 1755 CC: MARLYN PEREZ MD, MANUEL MCGOWAN and ENDER PARDO [id number] DICTATION DATE: 02/13/18 1350 KNAPSACK SPRAYER: 02/13/18 1425 DIS IN 02/15/18 [facility] [address] [place] [address]
[~2018-02-13 08:45] MED LIST changes: +MACROBID100 MG PO
[2018-02-13 09:10] VITALS: BP 153/75; BMI 29.0
[2018-02-13 15:06] VITALS: BP 115/60
[2018-02-13 15:28] VITALS: BP 89/53; BMI 25.8
[2018-02-13 16:00] VITALS: BP 100/62
[2018-02-14 04:00] VITALS: BP 145/75
[2018-02-14 05:04] LABS: BASOPHILS 0.1 % (0-2); EOSINOPHILS 0 % (0-7); HEMATOCRIT 32.8 % (36.0-48.0); HEMOGLOBIN 10.2 g/dL (12-16); IMMATURE GRANULOCYTES 0.2 % (0-5); MCH 30.2 pg (26.0-34.0); MCHC 31.1 g/dL (31.0-37.0); MONOCYTES 4.1 % (2-11); NEUTROPHILS 85.6 % (40-80); PLATELET COUNT 216 10x3/uL (130-400); RBC 3.38 10x6/uL (4.00-5.40); WBC 11.3 10x3/uL (4.8-10.8)
[2018-02-14 06:14] LABS: CARBON DIOXIDE 19.2 mmol/L (21.0-32.0); CREATININE - SERUM 1.1 mg/dL (0.6-1.3)
[2018-02-14 06:26] LABS: ANION GAP 19.5 mmol/L (8-16); POTASSIUM - SERUM 4.7 mmol/L (3.5-5.1)
[2018-02-14 08:51] VITALS: BP 164/92
[2018-02-14 14:03] VITALS: Ht 162.6 cm; Wt 68.0 kg
[2018-02-14 15:27] VITALS: BP 114/57
[2018-02-14 20:28] VITALS: BP 113/61
[2018-02-14 23:54] VITALS: BP 146/69
[2018-02-15 04:32] VITALS: BP 129/59
[2018-02-15 05:59] LABS: BASOPHILS 0.1 % (0-2); EOSINOPHILS 2.1 % (0-7); HEMATOCRIT 27.8 % (36.0-48.0); HEMOGLOBIN 8.5 g/dL (12-16); IMMATURE GRANULOCYTES 0.3 % (0-5); LYMPHOCYTES 18.9 % (15-50); MCHC 30.6 g/dL (31.0-37.0); MCV 98.2 fL (80.0-100.0); MONOCYTES 7.6 % (2-11); PLATELET COUNT 179 10x3/uL (130-400); RBC 2.83 10x6/uL (4.00-5.40); RDW 16.2 % (11.5-14.5)
[2018-02-15 06:01] LABS: WBC 6.7 10x3/uL (4.8-10.8)
[2018-02-15 06:15] LABS: CALCIUM 7.6 mg/dL (8.5-10.1); CARBON DIOXIDE 22.7 mmol/L (21.0-32.0); CREATININE - SERUM 0.9 mg/dL (0.6-1.3)
[2018-02-15 06:18] LABS: POTASSIUM - SERUM 3.7 mmol/L (3.5-5.1)
[2018-02-15 09:00] VITALS: BP 135/60
[2018-02-15] MEDS ORDERED: NORCO-10 PO (10:47)
[2018-02-15 12:30] VITALS: BP 116/71
== END 2018-02-15 14:44 | disposition home health service (06) | DRG 331 ==
LOC: D.SDCHOLD 08:45 → D.MS 08:45 → D.SDCHOLD 10:45 → D.MS 14:23
PROVIDERS: Surgery
PROC: 0DQB0ZZ Repair Ileum, Open Approach (ICD-10-PCS; principal; 2018-02-13 10:45)
DX: Z43.2 Encounter for attention to ileostomy (principal); I69.320 Aphasia following cerebral infarction; E11.9 Type 2 diabetes mellitus without complications

== ENCOUNTER 2018-05-26 13:47 | Inpatient (IN) | payer MEDICAID ==
[~2018-05-26] VITALS: Ht 162.6 cm; Wt 77.1 kg
[2018-05-26 14:41] LABS: HEMATOCRIT 28.6 % (36.0-48.0); HEMOGLOBIN 10.4 g/dL (12-16); MCH 31.2 pg (26.0-34.0); MCHC 36.4 g/dL (31.0-37.0); MCV 85.9 fL (80.0-100.0); MEAN PLATELET VOLUME 10.4 fL (7.4-10.4); RBC 3.33 10x6/uL (4.00-5.40); RDW 16.3 % (11.5-14.5); WBC 9.2 10x3/uL (4.8-10.8)
[2018-05-26 14:42] LABS: PLATELET COUNT 106 10x3/uL (130-400)
[2018-05-26 14:51] LABS: ALBUMIN 1.7 g/dL (3.4-5.0); ALKALINE PHOSPHATASE 74 U/L (46-116); ALT (SGPT) 12 U/L (10-68); BILIRUBIN - TOTAL 1.41 mg/dL (0.2-1.3); CALC OSMOLALITY 293 mosm/kg (275-300); CALCIUM 9.3 mg/dL (8.5-10.1); CARBON DIOXIDE 20.1 mmol/L (21.0-32.0); CHLORIDE - SERUM 105 mmol/L (98-107); CREATININE - SERUM 1.5 mg/dL (0.6-1.3); POTASSIUM - SERUM 3.8 mmol/L (3.5-5.1); PROTEIN - SERUM 6.8 g/dL (6.4-8.2); SODIUM 140 mmol/L (136-145); UREA NITROGEN 47 mg/dL (7-18); eGFR NON AFRICAN AMERICAN 37 mL/min (90-120)
[2018-05-26 14:54] LABS: GLUCOSE 149 mg/dL (74-106)
[2018-05-26 14:55] LABS: AMYLASE - SERUM 48 U/L (25-115)
[2018-05-26 14:58] LABS: LIPASE 46 U/L (73-393); TROPONIN-I < 0.017 ng/mL (0.000-0.060)
[2018-05-26 15:01] LABS: EOSINOPHILS 1 % (0-7); LYMPHOCYTES 39 % (15-50); MONOCYTES 1 % (2-11); NEUTROPHILS 52 % (40-80); PLATELET ESTIMATE DECREASED
[2018-05-26 15:44] LABS: APPEARANCE HAZY (CLEAR); BILIRUBIN NEGATIVE (NEGATIVE); COLOR DK YELLOW (YELLOW); GLUCOSE NEGATIVE (NEGATIVE); KETONE NEGATIVE (NEGATIVE); NITRITE NEGATIVE (NEGATIVE); PROTEIN TRACE mg/dL (NEGATIVE); SPECIFIC GRAVITY 1.015 (1.005-1.020)
[2018-05-26 15:46] LABS: BACTERIA MODERATE /hpf (NONE SEEN); EPITHELIAL CELLS 0-5 /hpf (0-5); RED CELLS - URINE OCC /hpf (0-5); WHITE CELLS - URINE 0-5 /hpf (0-5)
[2018-05-26 16:46] VITALS: BP 108/66
[2018-05-26 16:56] LABS: INR 1.28 (0.85-1.17); PROTIME 15.4 SECONDS (11.6-15.0)
[2018-05-26 16:57] LABS: APTT 33.9 SECONDS (22.8-39.4)
[2018-05-26 17:08] LABS: D-DIMER-QUANTITATIVE 3.75 ug/mLFEU (0.20-0.54)
[2018-05-26 17:50] VITALS: BP 116/75
[2018-05-26 17:51] LABS: HEMATOCRIT 25.9 % (36.0-48.0); MCH 26.8 pg (26.0-34.0); MCHC 31.3 g/dL (31.0-37.0); MCV 85.8 fL (80.0-100.0); MEAN PLATELET VOLUME 10.8 fL (7.4-10.4); PLATELET COUNT 94 10x3/uL (130-400); RBC 3.02 10x6/uL (4.00-5.40); RDW 16.3 % (11.5-14.5)
[2018-05-26 17:55] LABS: HEMOGLOBIN 8.1 g/dL (12-16); WBC 5.7 10x3/uL (4.8-10.8)
[2018-05-26 18:02] LABS: APTT 30.4 SECONDS (22.8-39.4); INR 1.28 (0.85-1.17); PROTIME 15.4 SECONDS (11.6-15.0)
[2018-05-26 18:03] LABS: D-DIMER-QUANTITATIVE 3.22 ug/mLFEU (0.20-0.54)
[2018-05-26 18:16] LABS: ALBUMIN 1.5 g/dL (3.4-5.0); ALKALINE PHOSPHATASE 63 U/L (46-116); ALT (SGPT) 10 U/L (10-68); AMYLASE - SERUM 44 U/L (25-115); BILIRUBIN - TOTAL 1.24 mg/dL (0.2-1.3); CALC OSMOLALITY 296 mosm/kg (275-300); CALCIUM 8.5 mg/dL (8.5-10.1); CARBON DIOXIDE 23.6 mmol/L (21.0-32.0); CHLORIDE - SERUM 108 mmol/L (98-107); CREATININE - SERUM 1.4 mg/dL (0.6-1.3); GLUCOSE 125 mg/dL (74-106); POTASSIUM - SERUM 3.8 mmol/L (3.5-5.1); SODIUM 142 mmol/L (136-145); UREA NITROGEN 49 mg/dL (7-18); eGFR NON AFRICAN AMERICAN 40 mL/min (90-120)
[2018-05-26 18:18] LABS: LIPASE 47 U/L (73-393); TROPONIN-I < 0.017 ng/mL (0.000-0.060)
[2018-05-26 18:39] LABS: LYMPHOCYTES 21 % (15-50); MONOCYTES 3 % (2-11); NEUTROPHILS 66 % (40-80); PLATELET ESTIMATE DECREASED
[2018-05-26 19:16] VITALS: BP 115/83
[2018-05-26 21:57] VITALS: BP 118/42
[2018-05-26 23:15] VITALS: BP 118/42
[2018-05-27 01:45] VITALS: BP 124/54
[2018-05-27 05:19] VITALS: BP 136/67
[2018-05-27 07:56] LABS: BASOPHILS 0 % (0-2); EOSINOPHILS 0.2 % (0-7); HEMATOCRIT 23.6 % (36.0-48.0); IMMATURE GRANULOCYTES 0.4 % (0-5); LYMPHOCYTES 11.1 % (15-50); MCH 26.7 pg (26.0-34.0); MCHC 30.9 g/dL (31.0-37.0); MCV 86.4 fL (80.0-100.0); MEAN PLATELET VOLUME 10.4 fL (7.4-10.4); MONOCYTES 20.7 % (2-11); NEUTROPHILS 67.6 % (40-80); PLATELET COUNT 93 10x3/uL (130-400); RBC 2.73 10x6/uL (4.00-5.40); RDW 16.6 % (11.5-14.5); WBC 5.6 10x3/uL (4.8-10.8)
[2018-05-27 08:01] LABS: CALCIUM 8.6 mg/dL (8.5-10.1); CARBON DIOXIDE 24.9 mmol/L (21.0-32.0); CREATININE - SERUM 1.2 mg/dL (0.6-1.3)
[2018-05-27 08:09] LABS: HEMOGLOBIN 7.3 g/dL (12-16)
[2018-05-27 08:55] VITALS: BP 143/61
[2018-05-27 09:09] LABS: ANION GAP 11.6 mmol/L (8-16); POTASSIUM - SERUM 3.5 mmol/L (3.5-5.1)
[2018-05-27 12:24] VITALS: BP 139/69
[2018-05-27 13:49] LABS: % SATURATION 28 % (15-55); IRON 37 ug/dl (35-150); TOTAL IRON BIND CAPACITY 129 ug/dl (260-445); UNSAT IRON BIND CAPACITY 92 ug/dl (150-375)
[2018-05-27 14:50] VITALS: BMI 29.2
[2018-05-27 17:02] VITALS: Ht 162.6 cm; Wt 77.1 kg
[2018-05-27 21:18] VITALS: BP 124/85
[2018-05-27 22:51] LABS: HEMATOCRIT 34.9 % (36.0-48.0); HEMOGLOBIN 11.5 g/dL (12-16)
[2018-05-28 05:40] LABS: ANION GAP 11.5 mmol/L (8-16); CARBON DIOXIDE 24.8 mmol/L (21.0-32.0); POTASSIUM - SERUM 3.3 mmol/L (3.5-5.1)
[2018-05-28 05:59] VITALS: BP 143/74
[2018-05-28 06:26] LABS: HEMATOCRIT 33.5 % (36.0-48.0); HEMOGLOBIN 10.9 g/dL (12-16); MCHC 32.5 g/dL (31.0-37.0); MCV 86.1 fL (80.0-100.0); MEAN PLATELET VOLUME 10.1 fL (7.4-10.4); PLATELET COUNT 86 10x3/uL (130-400); RDW 15.9 % (11.5-14.5)
[2018-05-28 06:27] LABS: RBC 3.89 10x6/uL (4.00-5.40); WBC 10.2 10x3/uL (4.8-10.8)
[2018-05-28 08:08] LABS: LYMPHOCYTES 22 % (15-50); MONOCYTES 17 % (2-11); NEUTROPHILS 54 % (40-80); PLATELET ESTIMATE DECREASED
[2018-05-28 09:17] LABS: FOLATE (FOLIC ACID) - SERUM >20.0 ng/mL (>3.0)
[2018-05-28 09:41] VITALS: BP 133/80
[2018-05-28 15:09] VITALS: BP 141/74
[2018-05-28 17:54] VITALS: BP 143/82
[2018-05-28 22:22] VITALS: BP 138/66
[2018-05-29 05:16] VITALS: BP 108/64
[2018-05-29 07:17] LABS: BASOPHILS 0.1 % (0-2); EOSINOPHILS 0.2 % (0-7); HEMOGLOBIN 11.6 g/dL (12-16); IMMATURE GRANULOCYTES 0.4 % (0-5); LYMPHOCYTES 11.1 % (15-50); MCH 28.4 pg (26.0-34.0); MCHC 33.1 g/dL (31.0-37.0); MCV 85.6 fL (80.0-100.0); MEAN PLATELET VOLUME 10.4 fL (7.4-10.4); MONOCYTES 15.9 % (2-11); NEUTROPHILS 72.3 % (40-80); PLATELET COUNT 87 10x3/uL (130-400); RBC 4.09 10x6/uL (4.00-5.40); RDW 16.4 % (11.5-14.5); WBC 11.7 10x3/uL (4.8-10.8)
[2018-05-29 07:30] LABS: ANION GAP 12.3 mmol/L (8-16); CALCIUM 8.2 mg/dL (8.5-10.1); CARBON DIOXIDE 26.9 mmol/L (21.0-32.0); CREATININE - SERUM 0.9 mg/dL (0.6-1.3); POTASSIUM - SERUM 3.2 mmol/L (3.5-5.1)
[2018-05-29 09:05] VITALS: BP 134/68
[2018-05-29 12:47] VITALS: BP 142/73
[2018-05-29 17:24] VITALS: BP 128/50
[2018-05-29 20:34] VITALS: BP 125/71
[2018-05-30 00:05] VITALS: BP 140/74
[2018-05-30 05:15] VITALS: BP 134/58
[2018-05-30 06:28] LABS: BASOPHILS 0.1 % (0-2); EOSINOPHILS 0.2 % (0-7); HEMATOCRIT 32.2 % (36.0-48.0); HEMOGLOBIN 10.5 g/dL (12-16); IMMATURE GRANULOCYTES 0.4 % (0-5); LYMPHOCYTES 13.2 % (15-50); MCH 28.3 pg (26.0-34.0); MCHC 32.6 g/dL (31.0-37.0); MCV 86.8 fL (80.0-100.0); MONOCYTES 12.7 % (2-11); NEUTROPHILS 73.4 % (40-80); PLATELET COUNT 85 10x3/uL (130-400); RBC 3.71 10x6/uL (4.00-5.40); RDW 17.1 % (11.5-14.5); WBC 9.1 10x3/uL (4.8-10.8)
[2018-05-30 06:36] LABS: ANION GAP 13.2 mmol/L (8-16); CALCIUM 7.8 mg/dL (8.5-10.1); CARBON DIOXIDE 24.5 mmol/L (21.0-32.0); POTASSIUM - SERUM 3.7 mmol/L (3.5-5.1)
[2018-05-30 08:03] LABS: PLATELET ESTIMATE DECREASED
[2018-05-30 08:04] LABS: ROULEAUX OCC
[2018-05-30 08:31] VITALS: BP 141/78
[2018-05-30 13:02] VITALS: BP 103/78
--- NOTE | 2018-05-30 16:05 | MORECARE ---
CASE MANAGEMENT DISCHARGE SUMMARY PATIENT: AFSANEH STORM UNIT: [id number] ADM DATE: 05/26/18 AGE: 63 : 57 SEX: F ROOM/BED: D.2238 AUTHOR: CHRIS MATAMOROS PHYSICIAN: REFERRING PHYSICIAN: MAYA MORGAN MD DATE OF SERVICE: 05/30/18 Discharge Plan Patient Name: AFSANEH STORM Facility: [facility]:[place] : 1955 Planned Disposition: Home Anticipated Discharge Date: Discharge Date: Expected LOS: Initial Reviewer: [email or web address] Initial Review Date: 05/30/2018 Generated: 05/30/18 5:05 pm DCPIA - Discharge Planning Initial Assessment Updated by [email or web address]: Daisy Wood on 05/30/18 4:03 pm * Is the patient Alert and Oriented? Yes * How many steps to enter\\exit or inside your home? 0/0 * PCP "Roula at [facility]" * Pharmacy [facility] [place] * Preadmission Environment Home with Family * ADLs Partial Dependent * Partial ADLs (Assistance needed) Ambulation Bathing Dressing * Equipment Bedside Commode Shower Chair Walker * Other Equipment Life alert button * List name and contact numbers for known caregivers / representatives who currently or will assist patient after discharge: Mary [facility] - [phone] * Verbal permission to speak to the caregivers and representatives has been obtained from the patient. Yes * Community resources currently utilized Private Duty Care * Please name any agencies selected above. [place] [facility]" * Additional services required to return to the preadmission environment? No * Can the patient safely return to the preadmission environment? Yes * Has this patient been hospitalized within the prior 30 days at any hospital? No Patient Name: AFSANEH STORM Page 66902 at 1605 All edits/amendments must be made on the electronic document DICTATION DATE: 05/30/18 1604 CONSULTING PSYCHOLOGIST: VIET 05/30/18 1604 RPT#: [id number] DC DATE: STATUS: ADM IN [facility] [address] [place] [address] END OF REPORT
--- NOTE | 2018-05-30 16:14 | MORECARE ---
CASE MANAGEMENT DISCHARGE SUMMARY PATIENT: AFSANEH STORM UNIT: [id number] ADM DATE: 05/26/18 AGE: 63 : 57 SEX: F ROOM/BED: D.2238 AUTHOR: SATURNINO,DOC PHYSICIAN: REFERRING PHYSICIAN: MAYA MORGAN MD DATE OF SERVICE: 05/30/18 Discharge Plan Patient Name: AFSANEH STORM Facility: [facility]:[place] : 1955 Planned Disposition: Home Anticipated Discharge Date: Discharge Date: Expected LOS: Initial Reviewer: [email or web address] Initial Review Date: 05/30/2018 Generated: 05/30/18 5:14 pm Comments DCP- Discharge Planning Updated by [email or web address]: Daisy Wood on 05/30/18 3:[address] Patient Name: AFSANEH STORM Admission Status: ER Accout number: [id number] Admission Date: 05-26-2018 : 1955 Admission Diagnosis:DVTRCLI OF LG INT W/O PERFORATION OR ABSCESS W BLEEDING Attending: MAYA MORGAN Current LOS: 4 Anticipated DC Date: Planned Disposition: Home Primary Insurance: MEDICAID [place] Discharge Planning Comments: Cm met with patient to discuss discharge planning/needs, her sister and brother in law are in the room. States she lives with her sister. She has [facility] private duty care that comes in 5 days a week for cooking, cleaning, errands, assisting with bathing and dressing. She is no longer using home health and declines need. I discussed availability of additional DME and she states she has all the DME needed at home. Her discharge plan is to return home with her sister. No needs identified. CM will continue to follow and assist with discharge planning/needs. Supply Chain Buyer: Daisy Wood DCPIA - Discharge Planning Initial Assessment Updated by [email or web address]: Daisy Wood on 05/30/18 4:03 pm * Is the patient Alert and Oriented? Yes * How many steps to enter\\exit or inside your home? 0/0 * PCP "Roula at [facility]" * [facility] * Preadmission Environment Home with Family * ADLs Partial Dependent * Partial ADLs (Assistance needed) Ambulation Bathing Dressing * Equipment Bedside Commode Shower Chair Walker * Other Equipment Life alert button * List name and contact numbers for known caregivers / representatives who currently or will assist patient after discharge: Mary sparks - [phone] * Verbal permission to speak to the caregivers and representatives has been obtained from the patient. Yes * Community resources currently utilized Private Duty Care * Please name any agencies selected above. [facility]" * Additional services required to return to the preadmission environment? No * Can the patient safely return to the preadmission environment? Yes * Has this patient been hospitalized within the prior 30 days at any hospital? No Last DP export: 05/30/18 3:05 p Patient Name: AFSANEH STORM Page 57935 at 1614 All edits/amendments must be made on the electronic document DICTATION DATE: 05/30/181613 BEND UP: VEIT 05/30/181613 RPT#: [id number] DC DATE: STATUS: ADM IN [facility] [address] [place] [address] END OF REPORT
[2018-05-30 16:44] VITALS: BP 98/53
[2018-05-30 20:01] VITALS: BP 113/59
[2018-05-31 01:25] VITALS: BP 118/72
[2018-05-31 04:57] VITALS: BP 116/54
[2018-05-31 05:36] LABS: BASOPHILS 0 % (0-2); EOSINOPHILS 0.6 % (0-7); HEMATOCRIT 30.8 % (36.0-48.0); IMMATURE GRANULOCYTES 0.6 % (0-5); LYMPHOCYTES 19.6 % (15-50); MCH 28.2 pg (26.0-34.0); MCHC 32.5 g/dL (31.0-37.0); MCV 86.8 fL (80.0-100.0); MEAN PLATELET VOLUME 9.4 fL (7.4-10.4); MONOCYTES 8.9 % (2-11); NEUTROPHILS 70.3 % (40-80); PLATELET COUNT 95 10x3/uL (130-400); RBC 3.55 10x6/uL (4.00-5.40); RDW 16.5 % (11.5-14.5)
[2018-05-31 05:40] LABS: WBC 6.2 10x3/uL (4.8-10.8)
[2018-05-31 06:07] LABS: ANION GAP 10.1 mmol/L (8-16); CALCIUM 7.7 mg/dL (8.5-10.1); CARBON DIOXIDE 27.2 mmol/L (21.0-32.0); CREATININE - SERUM 0.9 mg/dL (0.6-1.3); POTASSIUM - SERUM 3.3 mmol/L (3.5-5.1)
[2018-05-31 09:06] VITALS: BP 132/75
[2018-05-31] MEDS ORDERED: FLAGYL500 MG PO (12:39)
[2018-05-31] MEDS ORDERED: LEVAQUIN750 MG PO (12:39)
[2018-05-31] MEDS ORDERED: MIRALAX17 GM PO (12:40)
[2018-05-31 13:53] VITALS: BP 103/68
--- NOTE | 2018-06-03 10:57 | MORECARE ---
CASE MANAGEMENT DISCHARGE SUMMARY PATIENT: AFSANEH STORM UNIT: [id number] ADM DATE: 05/26/18 AGE: 63 : 57 SEX: F ROOM/BED: D.2238 AUTHOR: SATURNINO,DOC PHYSICIAN: REFERRING PHYSICIAN: MAYA MORGAN MD DATE OF SERVICE: 06/03/18 Discharge Plan Patient Name: AFSANEH STORM Facility: [facility]:[place] : 1955 Planned Disposition: Home Anticipated Discharge Date: Discharge Date: 05/31/2018 Expected LOS: 0 Initial Reviewer: [email or web address] Initial Review Date: 05/30/2018 Generated: 06/03/18 8:02 am Comments DCP- Discharge Planning Updated by [email or web address]: Daisy Wood on 05/30/18 3:[address] Patient Name: AFSANEH STORM Admission Status: ER Accout number: [id number] Admission Date: 05-26-2018 : 1955 Admission Diagnosis:DVTRCLI OF LG INT W/O PERFORATION OR ABSCESS W BLEEDING Attending: MAYA MORGAN Current LOS: 4 Anticipated DC Date: Planned Disposition: Home Primary Insurance: MEDICAID [place] Discharge Planning Comments: Cm met with patient to discuss discharge planning/needs, her sister and brother in law are in the room. States she lives with her sister. She has [facility] private duty care that comes in 5 days a week for cooking, cleaning, errands, assisting with bathing and dressing. She is no longer using home health and declines need. I discussed availability of additional DME and she states she has all the DME needed at home. Her discharge plan is to return home with her sister. No needs identified. CM will continue to follow and assist with discharge planning/needs. Nurse Transitional: Daisy Wood DCPIA - Discharge Planning Initial Assessment Updated by [email or web address]: Daisy Wood on 05/30/18 4:03 pm * Is the patient Alert and Oriented? Yes * How many steps to enter\\exit or inside your home? 0/0 * PCP "R[facility]a at [facility]" * [facility] * Preadmission Environment Home with Family * ADLs Partial Dependent * Partial ADLs (Assistance needed) Ambulation Bathing Dressing * Equipment Bedside Commode Shower Chair Walker * Other Equipment Life alert button * List name and contact numbers for known caregivers / representatives who currently or will assist patient after discharge: Mary sparks - [phone] * Verbal permission to speak to the caregivers and representatives has been obtained from the patient. Yes * Community resources currently utilized Private Duty Care * Please name any agencies selected above. [facility]" * Additional services required to return to the preadmission environment? No * Can the patient safely return to the preadmission environment? Yes * Has this patient been hospitalized within the prior 30 days at any hospital? No Last DP export: 05/30/18 3:14 p Patient Name: AFSANEH STORM Page 37909 at 1057 All edits/amendments must be made on the electronic document DICTATION DATE: 06/03/18701 TOOL RADIAL DRILL PRESS SET UP OPERATOR: VIET 06/03/18701 RPT#: [id number] DC DATE:05/31/18 STATUS: DIS IN [facility] [address] [place] [address] END OF REPORT
== END 2018-05-31 15:08 | disposition home or self-care (01) | DRG 377 ==
LOC: D.ER 13:47 → D.EDHOLD 16:58 → D.MS 16:58 → D.WS 18:58 → D.MS 20:53 → D.SDCHOLD 05-28 16:31 → D.MS 05-28 16:32
PROVIDERS: Emergency Medicine; ADMIT Internal Medicine Nephrology; ATTEND Internal Medicine Nephrology
DX: K57.33 Diverticulitis of large intestine without perforation or abscess with bleeding (principal); E43 Unspecified severe protein-calorie malnutrition; D62 Acute posthemorrhagic anemia; N17.9 Acute kidney failure, unspecified; N39.0 Urinary tract infection, site not specified; C18.9 Malignant neoplasm of colon, unspecified; C78.7 Secondary malignant neoplasm of liver and intrahepatic bile duct; D69.59 Other secondary thrombocytopenia

== ENCOUNTER 2018-06-23 13:35 | Inpatient (IN) | payer MEDICAID ==
[~2018-06-23 13:35] MED LIST changes: +FLAGYL500 MG PO; +LEVAQUIN750 MG PO; +MIRALAX17 GM PO
[2018-06-23 14:14] LABS: BASOPHILS 0.1 % (0-2); EOSINOPHILS 0.2 % (0-7); HEMATOCRIT 30.9 % (36.0-48.0); HEMOGLOBIN 9.6 g/dL (12-16); IMMATURE GRANULOCYTES 0.3 % (0-5); LYMPHOCYTES 9.7 % (15-50); MCH 29.4 pg (26.0-34.0); MCHC 31.1 g/dL (31.0-37.0); MCV 94.5 fL (80.0-100.0); MEAN PLATELET VOLUME 8.8 fL (7.4-10.4); MONOCYTES 8.1 % (2-11); NEUTROPHILS 81.6 % (40-80); RBC 3.27 10x6/uL (4.00-5.40); RDW 16.7 % (11.5-14.5)
[2018-06-23 14:21] LABS: PLATELET COUNT 294 10x3/uL (130-400)
[2018-06-23 14:26] LABS: ALBUMIN 1.4 g/dL (3.4-5.0); ANION GAP 13.7 mmol/L (8-16); BILIRUBIN - TOTAL 0.81 mg/dL (0.2-1.3); CARBON DIOXIDE 23.4 mmol/L (21.0-32.0); POTASSIUM - SERUM 4.1 mmol/L (3.5-5.1)
[2018-06-23 15:00] VITALS: BP 118/62
[2018-06-23 16:00] VITALS: BP 123/63
--- NOTE | 2018-06-23 17:35 | NUR ---
TRANSFER FROM ER BY STRETCHER. OREINTED TO ROOM. CALL LIGHT IN REACH. WILL CONT. PLAN OF CARE.
[2018-06-23 18:02] VITALS: BP 131/59; BMI 30.9
--- NOTE | 2018-06-23 19:23 | NUR ---
RESUMING PATIENT CARE. PATIENT IS ALERT AND ORIENTED X2. RESPIRATIONS ARE EVEN AND UNLABORED. NO S/S OF DISTRESS. NO C/O PAIN. NEEDS MET. CALL LIGHT WITHIN REACH. WILL CPOC.
--- NOTE | 2018-06-23 20:01 | NUR ---
PAGED SHAHRZAD LOYA TO RESTART PATIENT KEPPRA. ORDER GIVEN. KEPPRA RESTARTED.
[2018-06-23 20:18] VITALS: BP 111/60
[2018-06-24 00:32] VITALS: BP 102/54
[2018-06-24 04:09] VITALS: BP 117/60
[2018-06-24 07:52] LABS: ALBUMIN 1.1 g/dL (3.4-5.0); BILIRUBIN - TOTAL 0.69 mg/dL (0.2-1.3); CREATININE - SERUM 0.9 mg/dL (0.6-1.3); POTASSIUM - SERUM 3.8 mmol/L (3.5-5.1); PROTEIN - SERUM 5.8 g/dL (6.4-8.2)
[2018-06-24 08:02] LABS: ANION GAP 6.9 mmol/L (8-16); CARBON DIOXIDE 29.9 mmol/L (21.0-32.0); MAGNESIUM - SERUM 2.3 mg/dL (1.8-2.4)
[2018-06-24 08:43] LABS: BASOPHILS 0.2 % (0-2); EOSINOPHILS 0.7 % (0-7); HEMATOCRIT 27.2 % (36.0-48.0); HEMOGLOBIN 8.4 g/dL (12-16); IMMATURE GRANULOCYTES 0.4 % (0-5); LYMPHOCYTES 25.4 % (15-50); MCH 29.3 pg (26.0-34.0); MCHC 30.9 g/dL (31.0-37.0); MCV 94.8 fL (80.0-100.0); MEAN PLATELET VOLUME 9.2 fL (7.4-10.4); MONOCYTES 10.7 % (2-11); NEUTROPHILS 62.6 % (40-80); PLATELET COUNT 275 10x3/uL (130-400); RBC 2.87 10x6/uL (4.00-5.40); RDW 16.9 % (11.5-14.5)
[2018-06-24 08:45] LABS: WBC 5.4 10x3/uL (4.8-10.8)
[2018-06-24 09:16] VITALS: BP 102/45
--- NOTE | 2018-06-24 12:29 | NUR ---
TELEMETRY SR. INCONT B&B NOTED. REPOSITIONED IN BED FOR COMFORT. WILL CONT. PLAN OF CARE.
[2018-06-24 12:38] VITALS: BP 102/69
[2018-06-24 13:17] VITALS: BMI 26.0
[2018-06-24 15:37] VITALS: BMI 26.0
[2018-06-24 17:01] VITALS: BP 132/61
--- NOTE | 2018-06-24 17:27 | NUR ---
STOOL COLLECTED AND TAKEN TO LAB.
[2018-06-24 17:54] LABS: % SATURATION 58 % (15-55); IRON 46 ug/dl (35-150)
[2018-06-24 17:55] LABS: TOTAL IRON BIND CAPACITY 79 ug/dl (260-445); UNSAT IRON BIND CAPACITY 33 ug/dl (150-375)
--- NOTE | 2018-06-24 19:34 | NUR ---
PT RESTING IN BED. ALERT, HAS LR INFUSING ORDERED. PT BEDLOW AND CALL LIGHT IN REACH. NAME NAD DATE PLACED ON BOARD. NO S/S OF DISTRESS. WILL CPOC
[2018-06-24 20:00] VITALS: BP 110/55
--- NOTE | 2018-06-24 20:34 | NUR ---
PT INCONT OF BM AND URINE. DID NOT PRESS CALL LIGHT WAVED NURSE INTO ROOM. SMALL AMOUNTS. LOOSE STOOL. PT NOW CLEAN AND DRY. DENIES ANY OTHER NEEDS. WILL CPOC
--- NOTE | 2018-06-24 23:29 | NUR ---
FLAGYL INFUSING, PT HAS NO S/S OF DISTRESS. BEDLOW AND CALL LIGHT IN REACH. WILL CPOC
--- NOTE | 2018-06-24 23:41 | NUR ---
PT INCONT UPON LAST ATTEMPT FOR UA. MAY HAVE TO DO AN IN AND OUT CATH. WILL ATTEMPT AGAIN ON NEXT VOID. WILL CPOC
[2018-06-25 00:40] VITALS: BP 105/57
--- NOTE | 2018-06-25 05:27 | NUR ---
PT INCONT A LARGE AMOUNT. PT IS CONSTANTLY LEAKING BM FROM ANUS. ATTEMPTED AN IN AND OUT NURSE UNSUCCESSFUL. PT NOW CLEAN AND DRY. LR INFUSING ORDERED. PT BEDLOW AND CALL LIGHT IN REACH. PT WILL CALL FOR ASSIST WHEN NEEDED. WILL CPOC
[2018-06-25 05:38] VITALS: BP 124/57
[2018-06-25 06:33] LABS: CALC OSMOLALITY 281 mosm/kg (275-300); CARBON DIOXIDE 26.4 mmol/L (21.0-32.0); CHLORIDE - SERUM 111 mmol/L (98-107); CREATININE - SERUM 0.7 mg/dL (0.6-1.3); GLUCOSE 93 mg/dL (74-106); POTASSIUM - SERUM 3.9 mmol/L (3.5-5.1); SODIUM 142 mmol/L (136-145); UREA NITROGEN 11 mg/dL (7-18); eGFR NON AFRICAN AMERICAN 90 mL/min (90-120)
[2018-06-25 07:39] LABS: BASOPHILS 0 % (0-2); EOSINOPHILS 0.6 % (0-7); HEMATOCRIT 24.9 % (36.0-48.0); HEMOGLOBIN 7.7 g/dL (12-16); IMMATURE GRANULOCYTES 0.2 % (0-5); LYMPHOCYTES 24.1 % (15-50); MCH 29.2 pg (26.0-34.0); MCHC 30.9 g/dL (31.0-37.0); MCV 94.3 fL (80.0-100.0); MEAN PLATELET VOLUME 9.1 fL (7.4-10.4); MONOCYTES 12.4 % (2-11); NEUTROPHILS 62.7 % (40-80); PLATELET COUNT 239 10x3/uL (130-400); RBC 2.64 10x6/uL (4.00-5.40); WBC 4.9 10x3/uL (4.8-10.8)
[2018-06-25 08:00] VITALS: BP 130/68
[2018-06-25 09:52] LABS: % SATURATION 30 % (15-55); IRON 22 ug/dl (35-150); TOTAL IRON BIND CAPACITY 71 ug/dl (260-445)
[2018-06-25 09:54] LABS: UNSAT IRON BIND CAPACITY 49 ug/dl (150-375)
--- NOTE | 2018-06-25 10:00 | NUR ---
TELEMETRY SR. ISOLATION PRECAUTIONS CONT. IV PATENT. CALL LIGHT IN REACH. WILL CONT. PLAN OF CARE.
[2018-06-25 11:00] VITALS: BP 113/50
--- NOTE | 2018-06-25 14:40 | NUR ---
TELEMETRY SR. SISTER AT BS. CALL LIGHT IN REACH. WILL MONITOR NEEDS.
[2018-06-25 16:16] VITALS: BP 127/65
--- NOTE | 2018-06-25 16:55 | NUR ---
BILAT SCDS ON ORDERED.
--- NOTE | 2018-06-25 19:40 | NUR ---
RESUMING PATIENT CARE. PATIENT RESTING COMFORTABLY IN BED. RESPIRATIONS ARE EVEN AND UNLABORED. DENIES NEEDS. NO S/S OF DISTRESS. NO C/O PAIN. CALL LIGHT WITHIN REACH. WILL CPOC.
[2018-06-25 20:00] VITALS: BP 138/50
--- NOTE | 2018-06-26 02:44 | NUR ---
PATIENT RESTING COMFORTABLY IN BED. RESPIRATIONS ARE EVEN AND UNLABORED. NO S/S OF DISTRESS. NO C/O PAIN. DENIES NEEDS. CALL LIGHT WITHIN REACH. WILL CPOC.
[2018-06-26 04:00] VITALS: BP 140/69
[2018-06-26 05:34] LABS: BASOPHILS 0.3 % (0-2); EOSINOPHILS 0.8 % (0-7); HEMATOCRIT 26.8 % (36.0-48.0); HEMOGLOBIN 8.3 g/dL (12-16); IMMATURE GRANULOCYTES 0.3 % (0-5); LYMPHOCYTES 34.8 % (15-50); MCH 29.3 pg (26.0-34.0); MCV 94.7 fL (80.0-100.0); MEAN PLATELET VOLUME 8.6 fL (7.4-10.4); MONOCYTES 11.7 % (2-11); NEUTROPHILS 52.1 % (40-80); PLATELET COUNT 229 10x3/uL (130-400); RBC 2.83 10x6/uL (4.00-5.40); RDW 16.5 % (11.5-14.5); WBC 3.9 10x3/uL (4.8-10.8)
[2018-06-26 05:43] LABS: CALCIUM 7.9 mg/dL (8.5-10.1); CREATININE - SERUM 0.9 mg/dL (0.6-1.3)
--- NOTE | 2018-06-26 07:10 | NUR ---
REPORT RECEIVED FROM REDEVELOPMENT MANAGER AND PATIENT CARE ASSUMED. PATIENT UNDER ENTERIC PRECAUTIONS. PATIENT LAYING IN BED ON BACK AWAKE AND ALERT. PATIENT IS STABLE AND VSS. PATIENT DENIES ANY NEEDS OR PAIN. WILL CONTINUE TO MONITOR. SR UP X 2 BED IN LOW POSITION AND CALL LIGHT IN REACH.
[2018-06-26 09:31] VITALS: BP 144/68
--- NOTE | 2018-06-26 10:32 | NUR ---
Nutrition follow-up: Diet: Low sodium PO intake ~50% of meals Multiple BM's; +CDiff Labs reviewed Wt: 155# Will continue to provide food choices and honor food preferences within diet restrictions. Will offer nutritional supplements. RDN following.
[2018-06-26 12:29] VITALS: BP 136/75
--- NOTE | 2018-06-26 15:15 | NUR ---
PATIENT LAYING IN BED VISITNG WITH FAMILY. WILL CONTINUE TO MONITOR.
[2018-06-26 15:50] VITALS: BP 129/68
--- NOTE | 2018-06-26 17:22 | MORECARE ---
CASE MANAGEMENT DISCHARGE SUMMARY PATIENT: AFSANEH STORM UNIT: [id number] ADM DATE: 06/25/18 AGE: 63 : 57 SEX: F ROOM/BED: D.7284 AUTHOR: CHRIS MATAMOROS PHYSICIAN: REFERRING PHYSICIAN: MAYA MORGAN MD DATE OF SERVICE: 06/26/18 Discharge Plan Patient Name: AFSANEH STORM Facility: [facility]:[place] : 1955 Planned Disposition: Home Anticipated Discharge Date: Discharge Date: Expected LOS: Initial Reviewer: [email or web address] Initial Review Date: 06/23/2018 Generated: 06/26/18 6:22 pm Patient Name: AFSANEH STORM Page 82216 at 1722 All edits/amendments must be made on the electronic document DICTATION DATE: 06/26/181721 DIVISION ORDER ANALYST: VIET 06/26/181721 RPT#: [id number] DC DATE: STATUS: ADM IN [facility] [address] [place] [address] END OF REPORT
--- NOTE | 2018-06-26 17:32 | MORECARE ---
CASE MANAGEMENT DISCHARGE SUMMARY PATIENT: AFSANEH STORM UNIT: [id number] ADM DATE: 06/25/18 AGE: 63 : 57 SEX: F ROOM/BED: D.2387 AUTHOR: CHRIS MATAMOROS PHYSICIAN: REFERRING PHYSICIAN: MAYA MORGAN MD DATE OF SERVICE: 06/26/18 Discharge Plan Patient Name: AFSANEH STORM Facility: [facility]:[place] : 1955 Planned Disposition: Home Anticipated Discharge Date: Discharge Date: Expected LOS: Initial Reviewer: [email or web address] Initial Review Date: 06/23/2018 Generated: 06/26/18 6:32 pm Comments DCP- Discharge Planning Updated by [email or web address]: Linn Constantino on 06/26/18 4:[address] CM WENT TO MEET WITH THE PATIENT. SHE COMMUNICATES POORLY SECONDARY TO A STROKE. SHE SEEMS TO UNDERSTAND BUT CANNOT SPEAK WELL. SHE INDICATES SHE WILL RETURN TO HOME W/ HER SISTER AND [facility]. SHE INDICATED SHE DID NOT NEED NURSING SERVICES. PATIENT HAS STAGE IV CANCER DIAGNOSIS. REPORTEDLY RECEIVED CHEMOTHERAPY APPROXIMATELY 5 WEEKS AGO. SHE IS IN ISOLATION FOR POSTIVE CDT. SHE REPORTEDLY HAS HAD 16 STOOLS IN THE LAST 24 HRS. SHE IS ON PO VANCOMYCIN AND IV FLAGYL. PHARMACY- [facility]. DME- BSC- SHOWER CHAIR- [facility]. COMMUNITY RESOURSE PROVIDER- [facility]. PATIENT INDICATED SHE STILL HAS SUPERIOR CARE. TC TO [facility] TO VERIFY.WILL HAVE TO CALL BACK IN THE AM. ANSWERING SERVICES ONLY. TC TO THE PATIENT' SISTERYARITZA. LEFT VOICE MAIL. CM TO F/U TO VERIFY D/C PLAN AND NEEDS. Last DP export: 06/26/18 4:22 pm Patient Name: AFSANEH STORM Page [id number] at 1732 All edits/amendments must be made on the electronic document DICTATION DATE: 06/26/181730 STATION CHIEF: VIET 06/26/181730 RPT#: [id number] DC DATE: STATUS: ADM IN [address] [address] END OF REPORT
[2018-06-26 20:00] VITALS: BP 134/40
--- NOTE | 2018-06-26 21:16 | NUR ---
PT RESTING IN BED ALERT RR EVEN AND UNLABORED. 22G IV STARTED IN RIGHT WRIST X4 ATTEMPTS. NO S/S OF DISTRESS. BED LOW CALL LIGHT WITHIN REACH. WILL CONTINUE TO MONITOR.
[2018-06-27] VITALS: BP 130/71
[2018-06-27 04:30] VITALS: BP 131/64
--- NOTE | 2018-06-27 04:32 | NUR ---
I have reviewed this patient and I concur with the Shift Assessment completed by the Licensed Practical Nurse today this shift.
[2018-06-27 06:14] LABS: BASOPHILS 0.2 % (0-2); EOSINOPHILS 0.6 % (0-7); HEMATOCRIT 27.5 % (36.0-48.0); HEMOGLOBIN 8.4 g/dL (12-16); IMMATURE GRANULOCYTES 0.4 % (0-5); LYMPHOCYTES 25.1 % (15-50); MCHC 30.5 g/dL (31.0-37.0); MCV 94.8 fL (80.0-100.0); MEAN PLATELET VOLUME 9.2 fL (7.4-10.4); MONOCYTES 10.9 % (2-11); NEUTROPHILS 62.8 % (40-80); RDW 16.4 % (11.5-14.5)
[2018-06-27 06:30] LABS: PLATELET COUNT 276 10x3/uL (130-400); WBC 4.9 10x3/uL (4.8-10.8)
[2018-06-27 06:42] LABS: ANION GAP 9.6 mmol/L (8-16); CARBON DIOXIDE 28.5 mmol/L (21.0-32.0); CREATININE - SERUM 0.9 mg/dL (0.6-1.3); POTASSIUM - SERUM 4.1 mmol/L (3.5-5.1)
--- NOTE | 2018-06-27 07:30 | NUR ---
RECEIVED A/A/OX4. WATCHING TV AND HAS NOT REQUESTS OR COMPLAINTS. DENIES ANY PAIN OR DISCOMFORT. ASSESSMENT COMPLETED. PT EXPERIENCES EXPRESSIVE APHASIA BUT CAN ANSWER YES/NO QUESTIONS. BED IN LOW POSITION AND CALL LIGHT IN REACH.
[2018-06-27 09:40] VITALS: BP 123/57
--- NOTE | 2018-06-27 11:43 | NUR ---
PORT ACCESSED BY CONSUELO VICTORIA FOR IV ADMINISTRATION. PERIPHERAL IV INFILTRATED AND LEAKING AT SITE. DC'D WITH TIP INTACT. PT TOLERATED WELL.
[2018-06-27 13:14] VITALS: BP 121/62
--- NOTE | 2018-06-27 14:06 | NUR ---
I have reviewed this patient and I concur with the Shift Assessment completed by the Licensed Practical Nurse today this shift.
--- NOTE | 2018-06-27 15:25 | NUR ---
IN/OUT CATH DONE PER STERILE TECHNIQUE AND SPEC TAKEN TO LAB.
[2018-06-27 15:57] LABS: APPEARANCE CLEAR (CLEAR); BILIRUBIN NEGATIVE (NEGATIVE); COLOR YELLOW (YELLOW); GLUCOSE NEGATIVE (NEGATIVE); KETONE NEGATIVE (NEGATIVE); NITRITE NEGATIVE (NEGATIVE); PROTEIN NEGATIVE (NEGATIVE); UROBILINOGEN NORMAL (NORMAL)
[2018-06-27 17:45] VITALS: BP 125/60
--- NOTE | 2018-06-27 19:30 | NUR ---
PT RESTING IN BED WITH EYES CLOSED. RR EVEN AND UNLABORED. BED LOW CALL LIGHT WITHIN REACH WILL CONTINUE TO MONITOR.
[2018-06-27 20:00] VITALS: BP 160/75
[2018-06-28] VITALS (7 sets, daily range): BP systolic 119–166; BP diastolic 56–69
--- NOTE | 2018-06-28 03:33 | NUR ---
I have reviewed this patient and I concur with the Shift Assessment completed by the Licensed Practical Nurse today this shift.
[2018-06-28 07:04] LABS: BASOPHILS 0.3 % (0-2); EOSINOPHILS 2.1 % (0-7); HEMATOCRIT 28.6 % (36.0-48.0); HEMOGLOBIN 8.9 g/dL (12-16); IMMATURE GRANULOCYTES 0.3 % (0-5); LYMPHOCYTES 31.6 % (15-50); MCH 29.4 pg (26.0-34.0); MCHC 31.1 g/dL (31.0-37.0); MCV 94.4 fL (80.0-100.0); MEAN PLATELET VOLUME 8.9 fL (7.4-10.4); MONOCYTES 15.5 % (2-11); NEUTROPHILS 50.2 % (40-80); PLATELET COUNT 261 10x3/uL (130-400); RBC 3.03 10x6/uL (4.00-5.40); RDW 16.5 % (11.5-14.5); WBC 3.7 10x3/uL (4.8-10.8)
[2018-06-28 07:15] LABS: CALC OSMOLALITY 282 mosm/kg (275-300); CALCIUM 8.1 mg/dL (8.5-10.1); CARBON DIOXIDE 28.8 mmol/L (21.0-32.0); CHLORIDE - SERUM 110 mmol/L (98-107); CREATININE - SERUM 0.8 mg/dL (0.6-1.3); GLUCOSE 89 mg/dL (74-106); POTASSIUM - SERUM 4.2 mmol/L (3.5-5.1); SODIUM 143 mmol/L (136-145); UREA NITROGEN 10 mg/dL (7-18); eGFR NON AFRICAN AMERICAN 77 mL/min (90-120)
--- NOTE | 2018-06-28 15:21 | NUR ---
I have reviewed this patient and I concur with the Shift Assessment completed by the Licensed Practical Nurse today this shift.
--- NOTE | 2018-06-28 19:31 | NUR ---
INITIAL ROUNDS COMPLETED. PT DENIES ANY DISCOMFORT. SR UPX2,CALL LIGHT WITHINREACH.
--- NOTE | 2018-06-28 21:52 | NUR ---
ASSESSMENT COMPLETED AT 2015 HRS. PT INCONTINENT URINE AND STOOL. INCONTINENT CARE DONE. PT TURNED SELF WITHOUT PROBLEMS. ALERT AND ORIENTED. PT ABLE TO ANSWER YES/NO QUESTIONS. EXPRESSIVE APHASIA NOTED. SLIGHT R SIDED WEAKNESS NOTED. BRUISES NOTED TO BILAT ARMS. L CHEST INFUSAPORT WITH LR AT 100CC/HR. IV PATENT. SR PER CM HR 82. PM MEDS GIVEN. PT CURRENTLY RESTING WITH EYES CLOSED. RESP EVEN AND REGULAR. SR UP X2,CALL LIGHT WITHIN REACH AND BED ALARM ON.
--- NOTE | 2018-06-29 00:29 | NUR ---
PT AWAKE; DENIES ANY DISCOMFORT. SR UP X2,CALL LIGHT WITHIN REACH AND BED ALARM ON.
--- NOTE | 2018-06-29 02:02 | NUR ---
PT RESTING WITH EYES CLOSED. RESP EVEN AND REGULAR. SR UP X2, CALL LIGHT WITHIN REACH.
--- NOTE | 2018-06-29 03:58 | NUR ---
PT RESTING WITH EYES CLOSED. RESP EVEN AND REGULAR. SR UP X2, CALL LIGHT WITHIN REACH.
[2018-06-29 04:30] VITALS: BP 153/59
--- NOTE | 2018-06-29 05:15 | NUR ---
INFUSAPORT INFILTRATED. L BREAST SWOLLEN. FLUID OOZING AROUND JACOBS NEEDLE. GOWN AND BED SHEETS WET. JACOBS NEEDLE REMOVED WITHOUT DIFFICULTY. BED LINENS CAHNGED. INFUSAPORT SITE SWOLLEN. UNABLE TO PALPATE PORT. SITE LEFT UNACCESSED AT THIS TIME. UNABLE TO SEE/PALPATE VEINS ON BILAT ARMS. SR UP X2, CALL LIGHT WITHIN REACH.
--- NOTE | 2018-06-29 06:27 | NUR ---
PT REFUSED AM LAB DRAW. STILL UNABLE TO PALPATE L CHEST INFUSAPORT. WILL CONTINUE TO MONITOR.
[2018-06-29 07:56] VITALS: BP 158/73
[2018-06-29 11:22] VITALS: BP 158/60
[2018-06-29 16:49] VITALS: BP 158/78
--- NOTE | 2018-06-29 19:25 | NUR ---
INITIAL ROUNDS COMPLETED. PT DENIES ANY DISCOMFORT. SR UPX2, CALL LIGHT WITHIN REACH.
--- NOTE | 2018-06-29 20:01 | NUR ---
ASSESSMENT COMPLETED AT 1950 HRS. PT DENIED ANY DISCOMFORT. PT INCONTINENT OF URINE AND STOOL. INCONTINENT CARE DONE. PT TURNED SELF WITHOUT PROBLEMS. L CHEST INFUSAPORT SL. L BREAST SWOLLEN. LUNGS DIMINISHED IN BASES BILAT. DIAZ. EXPRESSIVE APHASIA NOTED. WEAKNESS NOTED TO R SIDE. WILL CONTINUE TO MONITOR. SR UPX2,CALL LIGHT WITHIN REACH AND BED AALRM ON.
[2018-06-29 20:07] VITALS: BP 109/64
--- NOTE | 2018-06-29 21:22 | NUR ---
PT INCONTINENT OF URINE AND STOOL. INCONTINENT CARE DONE. PM MEDS GIVEN INCLUDING LOMOTL 2MG PO. LCHEST INFUSAPORT FLUSHED. SITE POSITIONAL FOR BLOOD RETURN. SCD'S ON AT THIS TIME. SR UP X2, CALL LIGHT WITHIN REACH ANDD BED ALARM ON.
[2018-06-29 23:49] VITALS: BP 148/82
[2018-06-30] VITALS (10 sets, daily range): BP systolic 117–164; BP diastolic 54–88
--- NOTE | 2018-06-30 00:22 | NUR ---
PT RESTING WITH EYES CLOSED. RESP EVEN AND REGULAR. SR UP X2, CALL LIGHT WITHIN REACH.
--- NOTE | 2018-06-30 02:19 | NUR ---
PT RESTING WITH EYES CLOSED. RESP EVEN AND REGULAR. SR UPX2,CALL LIGHT WITHIN REACH.
--- NOTE | 2018-06-30 04:13 | NUR ---
PT INCONTINENT OF URINE AND STOOL. INCONTINENT CARE DONE. SR UPX2,CALL LIGHT WITHIN REACH.
--- NOTE | 2018-06-30 05:14 | NUR ---
PT INCONTINENT OF URINE. INCONTINENT CARE DONE. PT MOVED SELF IN BED WITHOUT DIFFICULTY. SR UPX2, CALL LIGHT WITHIN REACH.
[2018-06-30 05:25] LABS: BASOPHILS 0.2 % (0-2); EOSINOPHILS 1.6 % (0-7); HEMATOCRIT 25.4 % (36.0-48.0); HEMOGLOBIN 7.8 g/dL (12-16); IMMATURE GRANULOCYTES 0.2 % (0-5); LYMPHOCYTES 31.6 % (15-50); MCH 29.2 pg (26.0-34.0); MCHC 30.7 g/dL (31.0-37.0); MCV 95.1 fL (80.0-100.0); MEAN PLATELET VOLUME 9.2 fL (7.4-10.4); MONOCYTES 11.9 % (2-11); NEUTROPHILS 54.5 % (40-80); PLATELET COUNT 234 10x3/uL (130-400); RBC 2.67 10x6/uL (4.00-5.40); RDW 16.7 % (11.5-14.5); WBC 4.3 10x3/uL (4.8-10.8)
[2018-06-30 05:28] LABS: CALC OSMOLALITY 280 mosm/kg (275-300); CARBON DIOXIDE 31.6 mmol/L (21.0-32.0); CHLORIDE - SERUM 110 mmol/L (98-107); CREATININE - SERUM 0.8 mg/dL (0.6-1.3); GLUCOSE 89 mg/dL (74-106); POTASSIUM - SERUM 4.1 mmol/L (3.5-5.1); SODIUM 142 mmol/L (136-145); UREA NITROGEN 9 mg/dL (7-18); eGFR NON AFRICAN AMERICAN 77 mL/min (90-120)
--- NOTE | 2018-06-30 06:15 | NUR ---
PT INCONTINENT OF URINE. INCONTINENT CARE DONE. PT RESTED WELL DURING SHIFT. NEEDS MET; WILL CONTINUE TO MONITOR.
--- NOTE | 2018-06-30 07:10 | NUR ---
ASSESSMENT PER FLOW SHEET. PT IS WITHOUT DISTRESS.FALL PREVENTION IN PLACE.ISOLATION MAINTAINED.CALL LIGHT IN REACH
--- NOTE | 2018-06-30 12:35 | NUR ---
UNIT 1 OF 2 PRBC'S INITIATED. PT IS WITHOUT REACTIONS.
--- NOTE | 2018-06-30 13:50 | NUR ---
Nutrition follow-up: Diet: Low sodium PO intake ~60% average of last 3 meals labs reviewed Wt: 166# +BM RDN following.
--- NOTE | 2018-06-30 15:15 | NUR ---
UNIT 1 OF 2 PRBC'S COMPLETE,WITHOUT REACTIONS
--- NOTE | 2018-06-30 16:45 | NUR ---
UNIT 2 OF 2 PRBC'S INITIATED. PT IS WITHOUT REACTIONS.
--- NOTE | 2018-06-30 18:34 | NUR ---
REMAINS WITHOUT CHNAGE FROM INITIAL SHIFT ASSESSMENT.CONT PLAN OF CARE
--- NOTE | 2018-06-30 19:36 | NUR ---
RECIEVED UP IN BED WITH EYES OPEN AND TV ON. ALERT AND ORIENTED ATTEMPTS TO ANSWER QUESTIONS. DID SAY YES AND NO. WHEN AID CAME IN THE ROOM PT SAID " HEY WHATS UP". CONT TO RECIEVED PRBC. REMAINS IN ENTERIC ISOLATION R/T C-DIFF . HX OF CVA WITH RIGHT SIDE WEAKNESS. BEDFAST AT THIS TIME. PORT TO LEFT CHEST.
[2018-07-01 01:56] VITALS: BP 173/62
[2018-07-01 06:23] VITALS: BP 156/85
[2018-07-01 06:38] LABS: BASOPHILS 0.3 % (0-2); IMMATURE GRANULOCYTES 0.3 % (0-5); LYMPHOCYTES 22.6 % (15-50); MCHC 32.2 g/dL (31.0-37.0); MEAN PLATELET VOLUME 9.2 fL (7.4-10.4); NEUTROPHILS 64.8 % (40-80); PLATELET COUNT 219 10x3/uL (130-400); RDW 18.2 % (11.5-14.5)
[2018-07-01 06:41] LABS: HEMATOCRIT 35.1 % (36.0-48.0); HEMOGLOBIN 11.3 g/dL (12-16); WBC 5.8 10x3/uL (4.8-10.8)
[2018-07-01 06:52] LABS: CALC OSMOLALITY 276 mosm/kg (275-300); CARBON DIOXIDE 29.6 mmol/L (21.0-32.0); CHLORIDE - SERUM 109 mmol/L (98-107); CREATININE - SERUM 0.8 mg/dL (0.6-1.3); GLUCOSE 78 mg/dL (74-106); POTASSIUM - SERUM 3.9 mmol/L (3.5-5.1); SODIUM 140 mmol/L (136-145); UREA NITROGEN 10 mg/dL (7-18); eGFR NON AFRICAN AMERICAN 77 mL/min (90-120)
[2018-07-01 07:44] VITALS: BP 161/92
--- NOTE | 2018-07-01 08:21 | MORECARE ---
CASE MANAGEMENT DISCHARGE SUMMARY PATIENT: AFSANEH STORM UNIT: [id number] ADM DATE: 06/25/18 AGE: 63 : 56 SEX: F ROOM/BED: D.3196 AUTHOR: CHRIS MATAMOROS PHYSICIAN: REFERRING PHYSICIAN: MAYA MORGAN MD DATE OF SERVICE: 07/01/18 Discharge Plan Patient Name: AFSANEH STORM Facility: [facility]:[place] : 1955 Planned Disposition: Home Anticipated Discharge Date: Discharge Date: Expected LOS: Initial Reviewer: [email or web address] Initial Review Date: 06/23/2018 Generated: 07/01/18 9:20 am DCP- Discharge Planning Updated by [email or web address]: Linn Constantino on 06/26/18 4:[address] CM WENT TO MEET WITH THE PATIENT. SHE COMMUNICATES POORLY SECONDARY TO A STROKE. SHE SEEMS TO UNDERSTAND BUT CANNOT SPEAK WELL. SHE INDICATES SHE WILL RETURN TO HOME W/ HER SISTER AND [facility]. SHE INDICATED SHE DID NOT NEED NURSING SERVICES. PATIENT HAS STAGE IV CANCER DIAGNOSIS. REPORTEDLY RECEIVED CHEMOTHERAPY APPROXIMATELY 5 WEEKS AGO. SHE IS IN ISOLATION FOR POSTIVE CDT. SHE REPORTEDLY HAS HAD 16 STOOLS IN THE LAST 24 HRS. SHE IS ON PO VANCOMYCIN AND IV FLAGYL. PHARMACY- [facility]. DME- BSC- SHOWER CHAIR- [facility]. COMMUNITY RESOURSE PROVIDER- [facility]. PATIENT INDICATED SHE STILL HAS [facility]PERIOR CARE. TC TO [facility] TO VERIFY.WILL HAVE TO CALL BACK IN THE AM. ANSWERING SERVICES ONLY. TC TO THE PATIENT' SISTERYARITZA. LEFT VOICE MAIL. CM TO F/U TO VERIFY D/C PLAN AND NEEDS. Last DP export: 06/26/18 4:32 pm Patient Name: AFSANEH STORM Page [id number] at 0821 All edits/amendments must be made on the electronic document DICTATION DATE: 07/01/18819 TRUCK AND TRANSPORT MECHANIC: VIET 07/01/18819 RPT#: [id number] DC DATE: STATUS: ADM IN [place] [id number] [place] [id number] END OF REPORT
--- NOTE | 2018-07-01 09:34 | NUR ---
AM MEDS GIVEN AT THIS TIME. PT WATCHING TV, DENIES ANY NEEDS AT THIS TIME. LT INFUSAPORT INFUSING LR AT 100CC/HR. BEDSIDE RAILS X2, CALL LIGHT IN REACH, NAD NOTED, WILL CONTINUE TO MONITOR.
[2018-07-01 11:49] VITALS: BP 148/83
--- NOTE | 2018-07-01 14:36 | NUR ---
PT IN BED, WATCHING TV, NO CHANGES FROM PREVIOUS ASSESSMENT. DENIES ANY NEEDS AT THIS TIME. CALL LIGHT IN REACH, NAD NOTED, WILL CONITNUE TO MONITOR.
[2018-07-01 14:57] VITALS: BP 136/78
--- NOTE | 2018-07-01 16:34 | NUR ---
REHAB PRESCREENING Rehab referral received and chart reviewed. Ms. Hensley has refused PT evalualtion X 2. Rehab will continue to follow for participation. Thank you for this referral! Pat Corea, REJECT OPENER AND FILLER PD
--- NOTE | 2018-07-01 19:52 | NUR ---
PT RESTING IN BED. ALERT, UNKNOWN ORIENTATION. PT UNABLE TO SPEAK, USING YES OR NO ANSWERS. PT HAS LR INFUSING AT 100 TO LEFT IP. PT DENIES ANY NEEDS. NO S/S OF DISTRESS. SAID YES WHEN ASKING IF STOOL OUTPUT HAS SLOWED DOWN. PT DENIES ANY NEEDS. NO S/S OF DISTRESS. BEDLOW AND CALL LIGHT IN REACH. NAME AND DATE PLACED ON BOARD. NOURISHMENT IN REACH. WILL CPOC
[2018-07-01 20:31] VITALS: BP 136/64
--- NOTE | 2018-07-01 21:06 | NUR ---
NIGHT MEDICATIONS GIVEN. PT ABLE TO SAY YES OR NO. LR INFUSING TO LEFT CHEST AT 100, WHEN NURSE CHECKED PT STARTED YELLING NO. THAN MUMBLED OUT ABOUT PEOPLE TOUCHING. SHE SAID SORRY. PT HAS NO S/S OF DISTRESS. BEDLOW AND CALL LIGHT IN REACH. PT BEDLOW AND CALL LIGHT IN REACH. NOURISHMENT IN REACH. WILL CPOC
[2018-07-02 01:02] VITALS: BP 169/80
--- NOTE | 2018-07-02 02:53 | NUR ---
PT RESTING IN BED. NO S/S OF DISTRESS. PT WILL CALL FOR ASSIST WHEN NEEDED. LR INFUSING AT 100, PT WILL CALL FOR ASSIST WHEN NEEDED. WILL CPOC
--- NOTE | 2018-07-02 05:30 | NUR ---
MORNING LABS DRAWN THROUGH LEFT CHEST INFUSAPORT. PT DENIES ANY NEEDS. NO S/S OF DISTRESS. INCONT EPISODE. PT NOW CDI. WILL CPOC
[2018-07-02 05:37] VITALS: BP 154/77
[2018-07-02 06:20] LABS: BASOPHILS 0.2 % (0-2); EOSINOPHILS 1.6 % (0-7); HEMATOCRIT 35.3 % (36.0-48.0); HEMOGLOBIN 11.4 g/dL (12-16); LYMPHOCYTES 30.1 % (15-50); MCH 29.2 pg (26.0-34.0); MCHC 32.3 g/dL (31.0-37.0); MCV 90.5 fL (80.0-100.0); MEAN PLATELET VOLUME 9.2 fL (7.4-10.4); MONOCYTES 12.7 % (2-11); NEUTROPHILS 55.4 % (40-80); PLATELET COUNT 184 10x3/uL (130-400); RDW 17.8 % (11.5-14.5)
[2018-07-02 06:25] LABS: WBC 4.3 10x3/uL (4.8-10.8)
[2018-07-02 06:30] LABS: CALC OSMOLALITY 278 mosm/kg (275-300); CALCIUM 8.1 mg/dL (8.5-10.1); CARBON DIOXIDE 29.3 mmol/L (21.0-32.0); CHLORIDE - SERUM 109 mmol/L (98-107); CREATININE - SERUM 0.8 mg/dL (0.6-1.3); GLUCOSE 76 mg/dL (74-106); POTASSIUM - SERUM 3.7 mmol/L (3.5-5.1); SODIUM 141 mmol/L (136-145); UREA NITROGEN 9 mg/dL (7-18); eGFR NON AFRICAN AMERICAN 77 mL/min (90-120)
[2018-07-02 07:29] VITALS: BP 123/72
--- NOTE | 2018-07-02 09:39 | NUR ---
PT RESTING IN BED, SHIFT ASSESSMENT PERFORMED. DENIES PAIN AT THIS TIME, WILL CONT TO FOLLOW POC
[2018-07-02 11:45] VITALS: BP 116/66
[2018-07-02] MEDS ORDERED: VANCOCIN HCL250 MG PO (14:37)
[2018-07-02] MEDS ORDERED: FLAGYL500 MG PO (14:40)
[2018-07-02] MEDS ORDERED: IMODIUM2 MG PO (14:45)
[2018-07-02] MEDS ORDERED: PEPCID AC20 MG PO (14:47)
[2018-07-02] MEDS ORDERED: FLORAJEN3 CAPS460 MG PO (14:49)
--- NOTE | 2018-07-02 15:44 | MORECARE ---
CASE MANAGEMENT DISCHARGE SUMMARY PATIENT: AFSANEH STORM UNIT: [id number] ADM DATE: 06/25/18 AGE: 63 : 57 SEX: F ROOM/BED: D.5177 AUTHOR: CHRIS MATAMOROS PHYSICIAN: REFERRING PHYSICIAN: MAYA MORGAN MD DATE OF SERVICE: 07/02/18 Discharge Plan Patient Name: AFSANEH STORM Facility: [facility]:[place] : 1955 Planned Disposition: Home Anticipated Discharge Date: 07/02/18 Discharge Date: Expected LOS: 7 Initial Reviewer: [email or web address] Initial Review Date: 06/23/2018 Generated: 07/02/18 4:44 pm DCP- Discharge Planning Updated by [email or web address]: Linn Constantino on 06/26/18 4:[address] CM WENT TO MEET WITH THE PATIENT. SHE COMMUNICATES POORLY SECONDARY TO A STROKE. SHE SEEMS TO UNDERSTAND BUT CANNOT SPEAK WELL. SHE INDICATES SHE WILL RETURN TO HOME W/ HER SISTER AND [facility]. SHE INDICATED SHE DID NOT NEED NURSING SERVICES. PATIENT HAS STAGE IV CANCER DIAGNOSIS. REPORTEDLY RECEIVED CHEMOTHERAPY APPROXIMATELY 5 WEEKS AGO. SHE IS IN ISOLATION FOR POSTIVE CDT. SHE REPORTEDLY HAS HAD 16 STOOLS IN THE LAST 24 HRS. SHE IS ON PO VANCOMYCIN AND IV FLAGYL. PHARMACY- [facility]. DME- [facility]SC- SHOWER CHAIR- [facility]. COMMUNITY RESOURSE PROVIDER- [facility]. PATIENT INDICATED SHE STILL HAS SUPERIOR CARE. TC TO [facility] TO VERIFY.WILL HAVE TO CALL BACK IN THE AM. ANSWERING SERVICES ONLY. TC TO THE PATIENT' SISTERYARITZA. LEFT VOICE MAIL. CM TO F/U TO VERIFY D/C PLAN AND NEEDS. Last DP export: 07/01/18 7:21 a Patient Name: AFSANEH STORM Page [id number] at 1544 All edits/amendments must be made on the electronic document DICTATION DATE: 07/02/181543 GAS CHARGER: VIET 07/02/18 1546 RPT#: [id number] DC DATE: STATUS: ADM IN [place] [id number] [facility] [address] END OF REPORT
--- NOTE | 2018-07-02 16:21 | NUR ---
DISCHARGE INSTRUCTIONS REVIEWED WITH PT AND ALL QUESTIONS ANSWERED, DEACCESSED INFUSAPORT TO PT LEFT CHEST WITH TIP INTACT. PT TAKEN TO FRONT OF HOSPITAL VIA WHEELCHAIR AND LEFT WITH FRIEND
[2018-08-25 13:06] LABS: FOLATE (FOLIC ACID) - SERUM 18.5
== END 2018-07-02 16:24 | disposition home or self-care (01) | DRG 371 ==
LOC: D.ER 13:35 → OBSVTIME 16:11 → D.EDHOLD 16:11 → D.M2 16:11 → D.ER 16:11 → D.M2 16:42 → D.EDHOLD 16:42 → D.SDCHOLD 06-24 14:37 → D.M2 06-24 14:37 → D.SDCHOLD 06-24 14:39 → D.M2 06-24 14:39
PROVIDERS: Emergency Medicine; Internal Medicine Hematology & Oncology; ADMIT Internal Medicine Nephrology; ATTEND Internal Medicine Nephrology
DX: A04.72 Enterocolitis due to Clostridium difficile, not specified as recurrent (principal); E43 Unspecified severe protein-calorie malnutrition; K57.33 Diverticulitis of large intestine without perforation or abscess with bleeding; N39.0 Urinary tract infection, site not specified; N17.9 Acute kidney failure, unspecified; C18.9 Malignant neoplasm of colon, unspecified; C78.7 Secondary malignant neoplasm of liver and intrahepatic bile duct; D62 Acute posthemorrhagic anemia; D50.9 Iron deficiency anemia, unspecified; E83.42 Hypomagnesemia; K56.41 Fecal impaction; Z68.26 Body mass index [BMI] 26.0-26.9, adult; E11.9 Type 2 diabetes mellitus without complications; E86.0 Dehydration; I69.320 Aphasia following cerebral infarction; Z87.891 Personal history of nicotine dependence; R55 Syncope and collapse

== ENCOUNTER 2018-09-28 18:07 | Emergency (ER) | payer MEDICAID ==
[~2018-09-28] VITALS: Ht 162.6 cm; Wt 68.2 kg
[~2018-09-28 18:07] MED LIST changes: +FLORAJEN3 CAPS460 MG PO; +IMODIUM2 MG PO; +PEPCID AC20 MG PO; +VANCOCIN HCL250 MG PO
[2018-09-28 18:19] VITALS: Ht 162.6 cm; Wt 68.2 kg
[2018-09-28 19:00] LABS: BASOPHILS 0.1 % (0-2); EOSINOPHILS 1.8 % (0-7); HEMATOCRIT 32.8 % (36.0-48.0); IMMATURE GRANULOCYTES 0.1 % (0-5); LYMPHOCYTES 23.3 % (15-50); MCH 33.5 pg (26.0-34.0); MCHC 33.5 g/dL (31.0-37.0); MEAN PLATELET VOLUME 9.1 fL (7.4-10.4); MONOCYTES 8.2 % (2-11); NEUTROPHILS 66.5 % (40-80); PLATELET COUNT 169 10x3/uL (130-400); RBC 3.28 10x6/uL (4.00-5.40); RDW 14.5 % (11.5-14.5); WBC 7.8 10x3/uL (4.8-10.8)
[2018-09-28] MEDS ORDERED: PHENERGAN12.5 MG (19:12)
[2018-09-28 19:18] LABS: ALBUMIN 2.3 g/dL (3.4-5.0); ANION GAP 14.5 mmol/L (8-16); BILIRUBIN - TOTAL 0.46 mg/dL (0.2-1.3); CALCIUM 8.6 mg/dL (8.5-10.1); CARBON DIOXIDE 24.2 mmol/L (21.0-32.0); CREATININE - SERUM 1.2 mg/dL (0.6-1.3); POTASSIUM - SERUM 3.7 mmol/L (3.5-5.1); PROTEIN - SERUM 6.5 g/dL (6.4-8.2)
[2018-09-28 19:44] LABS: MAGNESIUM - SERUM 1.8 mg/dL (1.8-2.4); THYROID STIMULATING HORMONE 0.01 uIU/mL (0.36-3.74)
[2018-09-28 21:09] LABS: APPEARANCE CLEAR (CLEAR); BILIRUBIN NEGATIVE (NEGATIVE); COLOR YELLOW (YELLOW); GLUCOSE NEGATIVE (NEGATIVE); KETONE NEGATIVE (NEGATIVE); NITRITE NEGATIVE (NEGATIVE); PROTEIN NEGATIVE (NEGATIVE); SPECIFIC GRAVITY 1.015 (1.005-1.020); UROBILINOGEN NORMAL (NORMAL)
[2018-09-28 23:00] VITALS: BP 121/51
== END 2018-09-28 23:00 | disposition home or self-care (01) ==
LOC: D.ER 18:07
PROVIDERS: Emergency Medicine
DX: G54.2 Cervical root disorders, not elsewhere classified (principal)

== ENCOUNTER 2019-03-04 09:45 | Inpatient (IN) | payer MEDICAID ==
[~2019-03-04] VITALS: Ht 162.6 cm; Wt 72.6 kg
[~2019-03-04 09:45] MED LIST changes: +PHENERGAN12.5 MG
--- NOTE | 2019-03-04 10:02 | NUR ---
FSBS= 174 MG/DL
[2019-03-04 10:18] LABS: BASOPHILS 0.1 % (0-2); EOSINOPHILS 0.5 % (0-7); HEMATOCRIT 31.4 % (36.0-48.0); HEMOGLOBIN 9.9 g/dL (12-16); IMMATURE GRANULOCYTES 0.6 % (0-5); LYMPHOCYTES 9.5 % (15-50); MCH 29.9 pg (26.0-34.0); MCHC 31.5 g/dL (31.0-37.0); MCV 94.9 fL (80.0-100.0); MEAN PLATELET VOLUME 8.7 fL (7.4-10.4); MONOCYTES 9.4 % (2-11); NEUTROPHILS 79.9 % (40-80); RBC 3.31 10x6/uL (4.00-5.40); WBC 13.5 10x3/uL (4.8-10.8)
--- NOTE | 2019-03-04 10:20 | NUR ---
TO CT VIA STRETCHER WITH NEGOTIATOR
[2019-03-04 10:25] LABS: CALC OSMOLALITY 286 mosm/kg (275-300); CALCIUM 8.4 mg/dL (8.5-10.1); CARBON DIOXIDE 26.9 mmol/L (21.0-32.0); CHLORIDE - SERUM 104 mmol/L (98-107); CREATININE - SERUM 1.4 mg/dL (0.6-1.3); POTASSIUM - SERUM 3.8 mmol/L (3.5-5.1); SODIUM 139 mmol/L (136-145); UREA NITROGEN 27 mg/dL (7-18); eGFR NON AFRICAN AMERICAN 40 mL/min (90-120)
[2019-03-04 10:26] LABS: GLUCOSE 177 mg/dL (74-106)
[2019-03-04 10:36] LABS: PLATELET COUNT 307 10x3/uL (130-400)
[2019-03-04 10:43] LABS: ALBUMIN 1.5 g/dL (3.4-5.0); ALKALINE PHOSPHATASE 133 U/L (46-116); ALT (SGPT) 16 U/L (10-68); BILIRUBIN - TOTAL 0.58 mg/dL (0.2-1.3); CKMB 0.2 U/L (0.0-3.6); CREATINE KINASE 54 UL (21-215); MAGNESIUM - SERUM 1.9 mg/dL (1.8-2.4); PROTEIN - SERUM 7.5 g/dL (6.4-8.2); THYROID STIMULATING HORMONE 0.01 uIU/mL (0.36-3.74); TROPONIN-I < 0.017 ng/mL (0.000-0.060)
[2019-03-04 10:55] LABS: APTT 30.2 SECONDS (22.8-39.4); INR 1.21 (0.85-1.17); PROTIME 15.2 SECONDS (11.6-15.0)
[2019-03-04 11:04] LABS: APPEARANCE HAZY (CLEAR); BILIRUBIN NEGATIVE (NEGATIVE); COLOR YELLOW (YELLOW); GLUCOSE NEGATIVE (NEGATIVE); KETONE NEGATIVE (NEGATIVE)
[2019-03-04 11:06] LABS: NITRITE POSITIVE (NEGATIVE); PROTEIN 3+ mg/dL (NEGATIVE); SPECIFIC GRAVITY 1.025 (1.005-1.020)
[2019-03-04 11:07] LABS: BACTERIA MANY /hpf (NEGATIVE); EPITHELIAL CELLS RARE /hpf (0-5); GRANULAR CAST 0-5 /lpf (NONE SEEN); RED CELLS - URINE 0-5 /hpf (0-5); WHITE CELLS - URINE >50 /hpf (NEGATIVE)
[2019-03-04 11:40] VITALS: BP 120/71
--- NOTE | 2019-03-04 11:41 | NUR ---
RESTING IN BED/WATCHING TV. NAD NOTED
[2019-03-04 11:42] LABS: UDS - AMPHET NEGATIVE QUAL (NEGATIVE); UDS - BARB NEGATIVE QUAL (NEGATIVE); UDS - BENZO NEGATIVE QUAL (NEGATIVE); UDS - COCAINE NEGATIVE QUAL (NEGATIVE); UDS - OPIATE NEGATIVE QUAL (NEGATIVE); UDS - PCP NEGATIVE QUAL (NEGATIVE); UDS - THC NEGATIVE QUAL (NEGATIVE)
[2019-03-04 12:05] VITALS: BP 107/58
--- NOTE | 2019-03-04 12:10 | NUR ---
REPORT TO JULIEN STORM
--- NOTE | 2019-03-04 12:15 | NUR ---
khalif completed on 03/04/19 @ 7400
--- NOTE | 2019-03-04 12:36 | NUR ---
CRITICAL LAB: LACTATE 3.7
--- NOTE | 2019-03-04 12:38 | NUR ---
ORDERS FROM DR MILLER TO ADMIN NS PER SEPTIC PROTOCOL (30ML/KG) = 0ML
--- NOTE | 2019-03-04 12:45 | NUR ---
TRANSPORTED TO ROOM #2207, CONDITION STABLE. NS X2 LITERS INFUSING UPON TX. INFORMED JULIEN STORM OF CRITICAL LAB: LACTATE 3.7 AND NEW ORDERS OF NS X 2 LITERS BOLUS
[2019-03-04 12:55] VITALS: BP 155/73; BMI 27.5
--- NOTE | 2019-03-04 13:02 | NUR ---
PATIENT ADMITTED TO ROOM 2207. ADMISSION COMPLETE. PATIENT UNABLE TO PROVIDED PHONE NUMBERS FOR BROTHER AND SISTER BUT STATES LIVES AT HOME WITH THEM. UNABLE TO FILL OUT HISTORY D/T PATIENT AMS. PATIENT A&O ONLY TO SELF. NOT COMBATIVE. NOT TRYING TO CLIMB OOB. WILL CONTINUE TO MONITOR.
--- NOTE | 2019-03-04 13:06 | NUR ---
PATIENT BROUGHT TO FLOOR WITH TWO NS BOLUS BAGS FOR ELEVATED LACTIC ACID. BOLUSES CONTINUE TO RUN.
--- NOTE | 2019-03-04 13:36 | NUR ---
FAMILY IN ROOM NOW TO ASSIST WITH HISTORY. STATES WILL BRING PATIENTS MEDICATION LIST.
--- NOTE | 2019-03-04 13:43 | NUR ---
SPOKE WITH KITCHEN TO GET TRAY FOR PATIENT PER PATIENT REQUEST.
[2019-03-04] MEDS ORDERED: KEPPRA XR500 MG PO (15:09)
[2019-03-04] MEDS ORDERED: BAYER CHEWABLE81 MG PO (15:09)
[2019-03-04] MEDS ORDERED: MACRODANTIN100 MG PO (15:10)
[2019-03-04] MEDS ORDERED: LEXAPRO20 MG PO (15:10)
[2019-03-04] MEDS ORDERED: LISINOPRIL40 MG PO (15:11)
[2019-03-04] MEDS ORDERED: ZOCOR20 MG PO (15:11)
[2019-03-04] MEDS ORDERED: PEPCID AC20 MG PO (15:11)
[2019-03-04] MEDS ORDERED: VERAPAMIL HCL40 MG PO (15:12)
[2019-03-04] MEDS ORDERED: HYDROCHLOROTH12.5 M1 PO (15:12)
[2019-03-04] MEDS ORDERED: PHENERGAN25 M1 PO (15:13)
[2019-03-04 17:15] VITALS: BP 120/64
--- NOTE | 2019-03-04 17:43 | NUR ---
RESTING IN BED. DENIES NEEDS. WILL CONTINUE TO MONITOR.
[2019-03-04 18:19] LABS: % SATURATION 22 % (15-55); IRON 21 ug/dl (35-150); TOTAL IRON BIND CAPACITY 93 ug/dl (260-445); UNSAT IRON BIND CAPACITY 72 ug/dl (150-375)
[2019-03-04 20:00] VITALS: BP 119/50
[2019-03-05] VITALS: BP 107/55
--- NOTE | 2019-03-05 01:52 | NUR ---
RESTING IN BED NO NEEDS AT THIS TIME NO S/S OF DISTRESS
[2019-03-05 04:00] VITALS: BP 115/65
[2019-03-05 05:15] LABS: BASOPHILS 0.2 % (0-2); EOSINOPHILS 1.1 % (0-7); HEMATOCRIT 27.7 % (36.0-48.0); HEMOGLOBIN 8.5 g/dL (12-16); IMMATURE GRANULOCYTES 0.6 % (0-5); LYMPHOCYTES 9.8 % (15-50); MCH 29.8 pg (26.0-34.0); MCHC 30.7 g/dL (31.0-37.0); MEAN PLATELET VOLUME 9.3 fL (7.4-10.4); MONOCYTES 9.7 % (2-11); NEUTROPHILS 78.6 % (40-80); RBC 2.85 10x6/uL (4.00-5.40); RDW 14.8 % (11.5-14.5)
[2019-03-05 05:16] LABS: ANION GAP 12.4 mmol/L (8-16); BILIRUBIN - TOTAL 0.32 mg/dL (0.2-1.3); CALCIUM 7.2 mg/dL (8.5-10.1); CARBON DIOXIDE 23.3 mmol/L (21.0-32.0); POTASSIUM - SERUM 3.7 mmol/L (3.5-5.1)
[2019-03-05 05:31] LABS: PROTEIN - SERUM 5.4 g/dL (6.4-8.2)
[2019-03-05 05:45] LABS: MCV 97.2 fL (80.0-100.0); PLATELET COUNT 234 10x3/uL (130-400); WBC 10.1 10x3/uL (4.8-10.8)
[2019-03-05 08:39] VITALS: BP 121/63
[2019-03-05 09:47] VITALS: Ht 162.6 cm; Wt 72.6 kg
[2019-03-05 12:46] VITALS: BP 90/51
[2019-03-05 17:34] VITALS: BP 102/57
[2019-03-05 20:00] VITALS: BP 133/64
--- NOTE | 2019-03-05 20:08 | NUR ---
OT NOTE: PT COMPLETED SUPINE TO SIT WITH MIN A. PT COMPLETED SIT TO STAND WITH CGA/MIN A. PT COMPLETED ADL MOB WITH CGA. PT COMPLETED SIMPLE FACE HYGIENE WITH SETUP. PT COMPLETED UE AROM AXS. [phone] THANK YOU,WILMAN SIDHU
[2019-03-06] VITALS: BP 107/80
[2019-03-06 00:02] VITALS: BP 83/54
--- NOTE | 2019-03-06 03:05 | NUR ---
PATIENT IN BED SLEEPING RESPRATIONS EVEN AND UNLABORED CALL LIGHT IN REACH. IV RESSITED 22 CECE TO RIGHT HAND WITH THREE ATEMPTS. REMAINS CONFUSED BUT PLESANT. N O S/S OF DISTRESS.
[2019-03-06 04:00] VITALS: BP 113/77
--- NOTE | 2019-03-06 09:00 | NUR ---
ALERT WITH INTERMITTANT CONFUSION NOTED AND ABLE TO AMBULATE WITH SBA TO CHAIR. IV TO RT. HAND INFUSING AT PRESCRIBED RATE WITH NO S/S OF INFECTION/INFILTRATION. LUNGS CTA AND HRRR. SCD'S INTACT. FALL PRECAUTIONS IN PLACE AND ENCOURAGED TO USE CALL LIGHT FOR ASSSIT.
[2019-03-06 09:04] LABS: ANION GAP 9.5 mmol/L (8-16); BASOPHILS 0.1 % (0-2); CALCIUM 7.6 mg/dL (8.5-10.1); CARBON DIOXIDE 25.2 mmol/L (21.0-32.0); CREATININE - SERUM 1.1 mg/dL (0.6-1.3); EOSINOPHILS 0.4 % (0-7); HEMATOCRIT 28.2 % (36.0-48.0); HEMOGLOBIN 8.6 g/dL (12-16); IMMATURE GRANULOCYTES 0.5 % (0-5); LYMPHOCYTES 10.4 % (15-50); MCH 29.2 pg (26.0-34.0); MCHC 30.5 g/dL (31.0-37.0); MCV 95.6 fL (80.0-100.0); MEAN PLATELET VOLUME 8.8 fL (7.4-10.4); MONOCYTES 7.7 % (2-11); NEUTROPHILS 80.9 % (40-80); PLATELET COUNT 230 10x3/uL (130-400); POTASSIUM - SERUM 3.7 mmol/L (3.5-5.1); RBC 2.95 10x6/uL (4.00-5.40); RDW 14.2 % (11.5-14.5)
[2019-03-06 09:06] LABS: WBC 13.4 10x3/uL (4.8-10.8)
[2019-03-06 10:22] VITALS: BP 103/58
[2019-03-06 13:59] VITALS: BP 102/61
--- NOTE | 2019-03-06 15:01 | NUR ---
OT NOTE: PERFORMED BED MOB WITH MIN ASSIST; SIT TO STAND WITH MIN ASSIST; TRANFERS WITH MIN ASSIST; GROOMING WITH MIN ASSIST. BRIJESH TERRY OTR/L
--- NOTE | 2019-03-06 15:16 | NUR ---
OT NOTE: PT COMPLETED BED MOB TASKS WITH CGA. PT COMPLETED ADL MOB WITH RW REQUIRED CGA. PT COMPLETED FACE WASH WITH SETUP. PT COMPLETED BUE AROM AXS WITH FUNCTIONAL ACTIVITIES. [phone] THANK YOU,WILMAN SIDHU
[2019-03-06 17:52] VITALS: BP 84/47
--- NOTE | 2019-03-06 19:30 | NUR ---
PT SITTING UP IN BED WITHOUT DISTRESS, ORIENTED TO SELF. PT ANSWERING YES OR NO QUESTIONS, OCCASIONALLY STATES SHORT SENTENCES BUT SPEECH IS GARBLED. IV RIGHT HAND INFUSING NS @ 75. MAKAYLA ON. SCDS ON. DENIES NEEDS AT THIS TIME. CL IN REACH, WILL CTM
--- NOTE | 2019-03-06 22:00 | NUR ---
SPOKE WITH CEDRICK MCGHEE APN ABOUT LOW BP, ORDERS RECIEVED TO HOLD VERAPIMIL AND GIVE 500ML NS BOLUS. BOLUS GIVEN. FLUIDS INCREASED TO 100ML/HR. PT DENIES NEEDS. CL IN REACH, WILL CTM
[2019-03-07 04:00] VITALS: BP 90/51
[2019-03-07 07:23] LABS: BASOPHILS 0 % (0-2); EOSINOPHILS 0.8 % (0-7); HEMATOCRIT 26.7 % (36.0-48.0); HEMOGLOBIN 8.2 g/dL (12-16); IMMATURE GRANULOCYTES 0.5 % (0-5); LYMPHOCYTES 8.3 % (15-50); MCH 29.3 pg (26.0-34.0); MCHC 30.7 g/dL (31.0-37.0); MCV 95.4 fL (80.0-100.0); MEAN PLATELET VOLUME 8.6 fL (7.4-10.4); MONOCYTES 6.2 % (2-11); NEUTROPHILS 84.2 % (40-80); PLATELET COUNT 210 10x3/uL (130-400); RDW 14.3 % (11.5-14.5); WBC 11.1 10x3/uL (4.8-10.8)
[2019-03-07 07:43] LABS: ANION GAP 11.9 mmol/L (8-16); CALCIUM 7.2 mg/dL (8.5-10.1); MAGNESIUM - SERUM 1.5 mg/dL (1.8-2.4); PHOSPHOROUS 2.4 mg/dL (2.5-4.9); POTASSIUM - SERUM 3.9 mmol/L (3.5-5.1)
--- NOTE | 2019-03-07 09:00 | NUR ---
ALERT AND OREITNED TO SELF AND FAMILIAR FACES. SCD'S INTACT. IVF INFUSING TO RT. HAND AT PRESCRIBED RATE. WITH NO S/S OF INFECTION/INFILTRATION. HRRR AND LUNGS CTA. AMBULATES WITH SBA TO BATHROOM AND ENCOURAGED TO USE CALL LIGHT FOR ASSSIT. NO PERIPHERAL EDEMA NOTED.
[2019-03-07 09:40] VITALS: BP 108/66
[2019-03-07 13:46] VITALS: BP 100/57
[2019-03-07 17:43] VITALS: BP 98/56
--- NOTE | 2019-03-07 20:23 | NUR ---
AWAKE, ALERT DENIES DISCOMFORT. IV TO RIGHT HAND INTACT WITHOUT REDNESS OR EDEMA NOTED.RESP UNLABORED. CL IN REACH
--- NOTE | 2019-03-07 21:30 | NUR ---
WATCHING TV QUEITLY WITH NO DISTRESS NOTED. RESP UNLABORED. IV TO RIGHT HAND INTACT WITHOUT REDNESS OR EDEMA NOTED. CL IN REACH
[2019-03-08 07:43] LABS: HEMATOCRIT 24.7 % (36.0-48.0); HEMOGLOBIN 7.8 g/dL (12-16); MCH 29.4 pg (26.0-34.0); MCHC 31.6 g/dL (31.0-37.0); MCV 93.2 fL (80.0-100.0); MEAN PLATELET VOLUME 8.9 fL (7.4-10.4); PLATELET COUNT 235 10x3/uL (130-400); RBC 2.65 10x6/uL (4.00-5.40); RDW 14.3 % (11.5-14.5); WBC 10.9 10x3/uL (4.8-10.8)
[2019-03-08 07:54] LABS: CARBON DIOXIDE 21.6 mmol/L (21.0-32.0); CREATININE - SERUM 0.9 mg/dL (0.6-1.3); MAGNESIUM - SERUM 1.2 mg/dL (1.8-2.4); PHOSPHOROUS 2.5 mg/dL (2.5-4.9)
[2019-03-08 07:56] LABS: ANION GAP 11.7 mmol/L (8-16); POTASSIUM - SERUM 3.3 mmol/L (3.5-5.1)
[2019-03-08 07:59] LABS: LYMPHOCYTES 8 % (15-50); MONOCYTES 2 % (2-11); NEUTROPHILS 85 % (40-80); PLATELET ESTIMATE NORMAL
--- NOTE | 2019-03-08 08:00 | NUR ---
ALERT AND ORIENTED TO SELF AND FAMILIAR FACES. UP AMBULATING WITH WALKER WITH THERAPYAPPROX. 100FT. IV TO RT. HAND INTACT INFUSING AT PRESCRIBED RATE. ABDOMEN SOFT WITH BOWEL SOUNDS NOTED AND CONTINENT OF BOWEL BUT INCONT. OF BLADDER. HRRR AND DENIES ANY CHEST PAIN OR DISCOMFORT. ENCOURAGED TO USE CALL LIGHT FOR ASSSIT.
[2019-03-08 09:21] VITALS: BP 112/42
[2019-03-08 12:25] VITALS: BP 109/70
[2019-03-08 16:42] VITALS: BP 98/51
--- NOTE | 2019-03-08 17:50 | NUR ---
STARTED 1ST UNIT PRBCS WITH NO S/S OF REACTION NOTED AT THIS TIME. IV 20G TO RT BRACHIAL WITH NO S/S OF INFILTRATION NOTED
--- NOTE | 2019-03-08 19:25 | NUR ---
1ST UNIT PRBC COMPLETED WITH NO REACTIONS NOTED. 2ND UNIT STARTED TO RFA WITH NO REACTIONS NOTED AFTER 15 MINUTES.AWAKE,ALERT.WATCHING TV WITH NO COMPLAINS VOICED.CL IN REACH
[2019-03-08 20:00] VITALS: BP 178/71
--- NOTE | 2019-03-08 22:37 | NUR ---
2ND UNIT PRBC COMPLETED WITH NO REACTIONS NOTED.
[2019-03-09] VITALS: BP 95/59
--- NOTE | 2019-03-09 03:49 | NUR ---
I have reviewed this patient and I concur with the Shift Assessment completed by the Licensed Practical Nurse today this shift.
[2019-03-09 04:00] VITALS: BP 129/90
[2019-03-09 04:41] LABS: BASOPHILS 0.1 % (0-2); EOSINOPHILS 0.3 % (0-7); IMMATURE GRANULOCYTES 0.4 % (0-5); LYMPHOCYTES 8.3 % (15-50); MCH 30.1 pg (26.0-34.0); MCHC 32.6 g/dL (31.0-37.0); MCV 92.4 fL (80.0-100.0); MEAN PLATELET VOLUME 8.8 fL (7.4-10.4); MONOCYTES 5.8 % (2-11); NEUTROPHILS 85.1 % (40-80); PLATELET COUNT 219 10x3/uL (130-400); RDW 14.3 % (11.5-14.5); WBC 11.8 10x3/uL (4.8-10.8)
[2019-03-09 04:46] LABS: HEMATOCRIT 32.8 % (36.0-48.0); HEMOGLOBIN 10.7 g/dL (12-16); RBC 3.55 10x6/uL (4.00-5.40)
[2019-03-09 04:47] LABS: ANION GAP 8.1 mmol/L (8-16); CALCIUM 7.5 mg/dL (8.5-10.1); CARBON DIOXIDE 26.6 mmol/L (21.0-32.0); CREATININE - SERUM 0.9 mg/dL (0.6-1.3); MAGNESIUM - SERUM 1.4 mg/dL (1.8-2.4); PHOSPHOROUS 2.1 mg/dL (2.5-4.9); POTASSIUM - SERUM 3.7 mmol/L (3.5-5.1)
--- NOTE | 2019-03-09 07:21 | NUR ---
ALERT AND ORIENTED TO SELF. LUNGS CLEAR BILATERALLY. HEART SOUNDS S1 AND S2 HEARD IN ALL WARE. BOWEL SOUNDS ACTIVE X 4. SKIN INTACT WITHOUT REDNESS. IV TO RIGHT HAND SL. IV TO RFA PATENT WITHOUT REDNESS. BED LOW. MAKAYLA ALARM IN PLACE. BED LOW. CALL AMOR AND PERSONAL ITEMS IN REACH. WILL CONTINUE TO MONITOR.
[2019-03-09 08:16] VITALS: BP 116/67
[2019-03-09 12:15] VITALS: BP 120/56
--- NOTE | 2019-03-09 12:41 | NUR ---
OT NOTE: PT IN BED WITH BREAKFAST TRAY BUT NOT EATING ANYTHING; ASSISTED PT TO EOB WITH MIN ASSIST. SET UP OF TRAY TO INCLUDE OPENING PKGS, CUTTING MEAT, ETC.. PT ABLE TO EAT 25% OF MEAL WITH EXT TIME AND VERBAL CUES. SETUP OF BASIN FOR SINK BATH. ABLE TO WASH FACE AND HANDS AND UPPER LEGS WITH SET UP; MAX ASSIST IWTH BACK, LOWER LEGS, AND PERINEAL AREA. MIN ASSIST TO SHER GOWN, MIN ASSIST TO RETURN BACK TO BED. INCONT X 3 EPISODES WHILE BATHING..CHANGED PADS AND REPLACED WITH NEW ONES. PRACTICED SCOOTING UP IN BED BUT REQUIRED MAX ASSIST TO GET ALL THE WAY UP IN BED. BRIJESH TERRY, OTR/L [phone]
--- NOTE | 2019-03-09 13:01 | NUR ---
Nutrition follow-up: Pt sleeping; breakfast at bedside. Pt with some confusion per nursing PO Intake ~25% of meals Per speech pt needs chopped meat with gravy and thin liquids. Labs reviewed Pt receiving a renal ADA diet. Pt with no renal issues identified at this time RDN changed diet order to ADA consistent CHO only due to low PO4, K RDN also ordered Glucerna with meals RDN following.
--- NOTE | 2019-03-09 13:20 | NUR ---
RESTING IN BED. DENIES NEEDS. WILL CONTINUE TO MONITOR.
[2019-03-09 16:14] VITALS: BP 106/57
--- NOTE | 2019-03-09 18:16 | NUR ---
RESTING IN BED. DENIES NEEDS. FALL PRECAUTIONS IN PLACE. CALL AMOR AND PERSONAL ITEMS IN REACH.
--- NOTE | 2019-03-09 19:51 | NUR ---
OT NOTE: PT COMPLETED HYGIENE TASKS WITH SBA/MIN A. PT COMPLETED GROOMING TASKS WITH SET UP/MIN A. PT COMPLETED EOB SITTING WITH SBA. PT UE AROM AXS. [phone] THANK YOU,WILMAN SIDHU
[2019-03-09 21:03] VITALS: BP 116/63
--- NOTE | 2019-03-09 22:24 | NUR ---
PATIENT IS ALERT SITTING UP IN BED. EXPRESSIVE APHASIA NOTED. PATIENT UNDERSTANDS WHAT IS SAID TO HER, BUT CAN NOT RESPOND APPROPRIATLY TO QUESTIONS. IV R HAND,SL. IV R FA NS @100, NO REDNESS OR SWELLING IN EITHER IV. FALL PRECAUTIONS IN PLACE. PATIENT SHAKES HEAD NO SAYING SHE HAS NO NEEDS AT THIS TIME. BED RAILS X 2. CALL LIGHT AND BEDSIDE TABLE WITHIN REACH.
[2019-03-10 00:56] VITALS: BP 117/69
[2019-03-10 05:46] VITALS: BP 125/77
[2019-03-10 06:00] LABS: BASOPHILS 0.1 % (0-2); EOSINOPHILS 0.4 % (0-7); HEMATOCRIT 31.5 % (36.0-48.0); IMMATURE GRANULOCYTES 0.4 % (0-5); LYMPHOCYTES 8.9 % (15-50); MCH 29.6 pg (26.0-34.0); MCHC 31.7 g/dL (31.0-37.0); MCV 93.2 fL (80.0-100.0); MEAN PLATELET VOLUME 8.5 fL (7.4-10.4); MONOCYTES 6.1 % (2-11); NEUTROPHILS 84.1 % (40-80); PLATELET COUNT 206 10x3/uL (130-400); RBC 3.38 10x6/uL (4.00-5.40); RDW 14.8 % (11.5-14.5); WBC 11.1 10x3/uL (4.8-10.8)
[2019-03-10 06:15] LABS: ANION GAP 7.4 mmol/L (8-16); CALCIUM 7.3 mg/dL (8.5-10.1); CARBON DIOXIDE 28.3 mmol/L (21.0-32.0); CREATININE - SERUM 0.9 mg/dL (0.6-1.3); MAGNESIUM - SERUM 1.4 mg/dL (1.8-2.4); PHOSPHOROUS 2.4 mg/dL (2.5-4.9); POTASSIUM - SERUM 3.7 mmol/L (3.5-5.1)
--- NOTE | 2019-03-10 07:30 | NUR ---
PT RESTING QUIETLY IN BED. RESP EVEN AND UNLABORED. PT WITH EXPRESSIVE APHASIA. ANSWERS STAFF QUESTIONS WITH "NO". IV TO RIGHT FOREARM WITH NS @ 30ML/HR INFUSING VIA PUMP. SALINE LOCK TO RIGHT HAND BOTH SITES WITHOUT REDNESS OR EDEMA. NO EVIDENCE OF PAIN AT THIS TIME. CL WITHIN REACH. ENCOURAGED TO CALL WITH NEEDS. CONTINUE POC
[2019-03-10 08:30] VITALS: BP 129/74
[2019-03-10] MEDS ORDERED: LEVAQUIN750 MG PO (10:49)
--- NOTE | 2019-03-10 13:00 | NUR ---
OT NOTE: ATTEMPTED TO ASSIST PT WITH BREAKFAST..PT STATING NO AND SHAKING HER HEAD NO.. ATTEMPTED TO ASSIST PT UP TO SIDE OF BED.. PT CONT TO REFUSE.. PT NORMALLY AGREEABLE TO THIS BUT NOT TODAY. PROVIDED PT WITH WASHCLOTH FOR FACE AND HANDS.. ATTEMPTED BED MOB TO INCLUDE ROLLING FROM SIDE TO SIDE. PT WAS WET.. PERFORMED PERINEAL CARE AND PROVIDED CLEAN PAD. PT RESISTANT TO ANYTHING ELSE THIS AM. BRIJESH TERRY, OTR/L
--- NOTE | 2019-03-10 13:03 | MORECARE ---
CASE MANAGEMENT DISCHARGE SUMMARY PATIENT: AFSANEH STORM UNIT: [id number] ADM DATE: 03/04/19 AGE: 63 : 57 SEX: F ROOM/BED: D.2207 AUTHOR: CHRIS MATAMOROS PHYSICIAN: REFERRING PHYSICIAN: MAYA MORGAN MD DATE OF SERVICE: 03/10/19 Discharge Plan Patient Name: AFSANEH STORM Facility: [facility]:[place] : 1955 Planned Disposition: Home with Home Health Anticipated Discharge Date: Discharge Date: Expected LOS: Initial Reviewer: [email or web address] Initial Review Date: 03/04/2019 Generated: 03/10/19 2:02 pm DCPIA - Discharge Planning Initial Assessment Updated by [email or web address]: Erlinda Oakes on 03/10/19 12:59 pm * Is the patient Alert and Oriented? Yes * PCP [facility] * Pharmacy [facility] * Preadmission Environment Home with Family * ADLs Partial Dependent * Partial ADLs (Assistance needed) Ambulation Bathing * Equipment Bedside Commode Elevated Toliet Seat Rolling Walker Shower Chair Walker Wheelchair * List name and contact numbers for known caregivers / representatives who currently or will assist patient after discharge: YARITZA (SISTER) [phone] * Verbal permission to speak to the caregivers and representatives has been obtained from the patient. Yes * Community resources currently utilized [employer] * Please name any agencies selected above. [facility] * Additional services required to return to the preadmission environment? Yes * Has this patient been hospitalized within the prior 30 days at any hospital? No Patient Name: AFSANEH STORM Page [id number] at 1303 All edits/amendments must be made on the electronic document DICTATION DATE: 03/10/19 1302 GAS JOCKEY: VIET 03/10/19 1302 RPT#: [id number] DC DATE: STATUS: ADM IN [facility] [address] [place] [address] END OF REPORT
--- NOTE | 2019-03-10 13:10 | MORECARE ---
CASE MANAGEMENT DISCHARGE SUMMARY PATIENT: AFSANEH STORM UNIT: [id number] ADM DATE: 03/04/19 AGE: 63 : 57 SEX: F ROOM/BED: D.9312 AUTHOR: CHRIS MATAMOROS PHYSICIAN: REFERRING PHYSICIAN: MAYA MORGAN MD DATE OF SERVICE: 03/10/19 Discharge Plan Patient Name: AFSANEH STORM Facility: [facility]:[place] : 1955 Planned Disposition: Home with Home Health Anticipated Discharge Date: Discharge Date: Expected LOS: Initial Reviewer: [email or web address] Initial Review Date: 03/04/2019 Generated: 03/10/19 2:09 pm Comments DCP- Discharge Planning Updated by [id number]: Erlinda Oakes on 03/10/19 12:[address] Patient Name: AFSANEH STORM Admission Status: ER Accout number: [id number] Admission Date: 03-04-2019 : 1955 Admission Diagnosis:SEPSIS, UNSPECIFIED ORGANISM Attending: MAYA MORGAN Current LOS: 6 Anticipated DC Date: Planned Disposition: Home with Home Health Primary Insurance: MEDICAID [place] Discharge Planning Comments: CM met with patient to complete initial dc planning assessment. CM educated patient on the CM role and verbal consent given by patient to complete assessment. Patient lives at home with her sister and brother where she is partially dependent on ADLs. At discharge patient plans to return home and feels this is a safe discharge. CM discussed availability of home health, rehab services, and medical equipment. The patient had trouble answering questions and asked me to call Yaritza. I called Yaritza and she stated that she has [facility] 3 hours a day 7 days a week. She stated that she would like home health for her sister and would like [facility]. I will send the referral to [facility]. Their address in [address] [place] [address] number [phone]. Patient denied known discharge needs at this time. CM will continue to follow and will assist as needed with dc plans/needs. Paper Control Clerk: Erlinda Oakes DCPIA - Discharge Planning Initial Assessment Updated by [email or web address]: Erlinda Oakes on 03/10/19 12:59 pm * Is the patient Alert and Oriented? Yes * PCP [facility] * Pharmacy [facility] * Preadmission Environment Home with Family * ADLs Partial Dependent * Partial ADLs (Assistance needed) Ambulation Bathing * Equipment Bedside Commode Elevated Toliet Seat Rolling Walker Shower Chair Walker Wheelchair * List name and contact numbers for known caregivers / representatives who currently or will assist patient after discharge: YARITZA (SISTER) [phone] * Verbal permission to speak to the caregivers and representatives has been obtained from the patient. Yes * Community resources currently utilized Advantage Program * Please name any agencies selected above. [facility] * Additional services required to return to the preadmission environment? Yes * Has this patient been hospitalized within the prior 30 days at any hospital? No Last DP export: 03/10/19 12:03 p Patient Name: AFSANEH STORM Page [phone] at 1310 All edits/amendments must be made on the electronic document DICTATION DATE: 03/10/19 1309 TIMEKEEPER SUPERVISOR: VIET 03/10/19 1309 RPT#: [id number] DC DATE: STATUS: ADM IN [facility] [address] [place] [address] END OF REPORT
--- NOTE | 2019-03-10 13:27 | MORECARE ---
CASE MANAGEMENT DISCHARGE SUMMARY PATIENT: AFSANEH STORM UNIT: [id number] ADM DATE: 03/04/19 AGE: 63 : 57 SEX: F ROOM/BED: D.1102 AUTHOR: CHRIS MATAMOROS PHYSICIAN: REFERRING PHYSICIAN: MAYA MORGAN MD DATE OF SERVICE: 03/10/19 Discharge Plan Patient Name: AFSANEH STORM Facility: [facility]:[place] : 1955 Planned Disposition: Home with Home Health Anticipated Discharge Date: Discharge Date: Expected LOS: Initial Reviewer: [email or web address] Initial Review Date: 03/04/2019 Generated: 03/10/19 2:27 pm Comments DCP- Discharge Planning Updated by [email or web address]: Erlinda Oakes on 03/10/19 12:[address] Patient Name: AFSANEH STORM Admission Status: ER Accout number: [id number] Admission Date: 03-04-2019 : 1955 Admission Diagnosis:SEPSIS, UNSPECIFIED ORGANISM Attending: MAYA MORGAN Current LOS: 6 Anticipated DC Date: Planned Disposition: Home with Home Health Primary Insurance: MEDICAID [place] Discharge Planning Comments: CM met with patient to complete initial dc planning assessment. CM educated patient on the CM role and verbal consent given by patient to complete assessment. Patient lives at home with her sister and brother where she is partially dependent on ADLs. At discharge patient plans to return home and feels this is a safe discharge. CM discussed availability of home health, rehab services, and medical equipment. The patient had trouble answering questions and asked me to call Yaritza. I called Yaritza and she stated that she has [facility] 3 hours a day 7 days a week. She stated that she would like home health for her sister and would like [facility]. I will send the referral to [facility]. Their address in [address] [place] [address] number [phone]. Patient denied known discharge needs at this time. CM will continue to follow and will assist as needed with dc plans/needs. Transportation Specialist: Erlinda Oakes DCPIA - Discharge Planning Initial Assessment Updated by [email or web address]: Erlinda Oakes on 03/10/19 12:59 pm * Is the patient Alert and Oriented? Yes * PCP [facility] * Pharmacy [facility] * Preadmission Environment Home with Family * ADLs Partial Dependent * Partial ADLs (Assistance needed) Ambulation Bathing * Equipment Bedside Commode Elevated Toliet Seat Rolling Walker Shower Chair Walker Wheelchair * List name and contact numbers for known caregivers / representatives who currently or will assist patient after discharge: YARITZA (SISTER) [phone] * Verbal permission to speak to the caregivers and representatives has been obtained from the patient. Yes * Community resources currently utilized Advantage Program * Please name any agencies selected above. [facility] * Additional services required to return to the preadmission environment? Yes * Has this patient been hospitalized within the prior 30 days at any hospital? No External Providers External Provider: [facility] Next Contact Date: Service Request Date: Service Type: Resolution: Reviewer: Comments: Last DP export: 03/10/19 12:10 p Patient Name: AFSANEH STORM Page [phone] at 1327 All edits/amendments must be made on the electronic document DICTATION DATE: 03/10/19 1327 REAL ESTATE REP: VIET 03/10/19 1327 RPT#: [id number] DC DATE: STATUS: ADM IN [facility] [address] [place] [address] END OF REPORT
--- NOTE | 2019-03-11 11:55 | MORECARE ---
CASE MANAGEMENT DISCHARGE SUMMARY PATIENT: AFSANEH STORM UNIT: [id number] ADM DATE: 03/04/19 AGE: 63 : 57 SEX: F ROOM/BED: D.2013 AUTHOR: SATURNINODOC PHYSICIAN: REFERRING PHYSICIAN: MAYA MORGAN MD DATE OF SERVICE: 03/11/19 Discharge Plan Patient Name: AFSANEH STORM Facility: [facility]:[place] : 1955 Planned Disposition: Home with Home Health Anticipated Discharge Date: Discharge Date: 03/10/2019 Expected LOS: Initial Reviewer: [id number] Initial Review Date: 03/04/2019 Generated: 03/11/19 12:54 pm DCP- Discharge Planning Updated by [email or web address]: Erlinda Oakes on 03/10/19 12:[address] Patient Name: AFSANEH STORM Admission Status: ER Accout number: [id number] Admission Date: 03-04-2019 : 1955 Admission Diagnosis:SEPSIS, UNSPECIFIED ORGANISM Attending: MAYA MORGAN Current LOS: 6 Anticipated DC Date: Planned Disposition: Home with Home Health Primary Insurance: MEDICAID [place] Discharge Planning Comments: CM met with patient to complete initial dc planning assessment. CM educated patient on the CM role and verbal consent given by patient to complete assessment. Patient lives at home with her sister and brother where she is partially dependent on ADLs. At discharge patient plans to return home and feels this is a safe discharge. CM discussed availability of home health, rehab services, and medical equipment. The patient had trouble answering questions and asked me to call Yen. I called Yen and she stated that she has [facility] 3 hours a day 7 days a week. She stated that she would like home health for her sister and would like [facility]. I will send the referral to [facility]. Their address in [address] [place] [address]' number [phone]. Patient denied known discharge needs at this time. CM will continue to follow and will assist as needed with dc plans/needs. Insurance Sales Executive: Erlinda Oakes DCPIA - Discharge Planning Initial Assessment Updated by [id number]: Erlinda Oakes on 03/10/19 12:59 pm * Is the patient Alert and Oriented? Yes * PCP [facility] * Pharmacy [facility] * Preadmission Environment Home with Family * ADLs Partial Dependent * Partial ADLs (Assistance needed) Ambulation Bathing * Equipment Bedside Commode Elevated Toliet Seat Rolling Walker Shower Chair Walker Wheelchair * List name and contact numbers for known caregivers / representatives who currently or will assist patient after discharge: YEN (SISTER) [phone] * Verbal permission to speak to the caregivers and representatives has been obtained from the patient. Yes * Community resources currently utilized Advantage Program * Please name any agencies selected above. [facility] * Additional services required to return to the preadmission environment? Yes * Has this patient been hospitalized within the prior 30 days at any hospital? No External Providers External Provider: [facility] Next Contact Date: Service Request Date: Service Type: Resolution: Reviewer: Comments: Coverage Notice Reviewer: [id number] Hope Oakes Notice Issued Date-Time: 03/10/2019 12:55 Notice Type: Patient Choice Letter Notice Delivered To: Family Member Relationship to Patient: Sister Molding Utility Worker Name: yen Delivery Method: PHONE - Phone Lou Days: Prior Verbal Notification: Recipient Understood Notice: Yes Recipient Signature: Med Rec Note Co-signed by Attending: Coverage Notice Comment: via telephone with yen Ballard DP export: 03/10/19 12:27 p Patient Name: AFSANEH STORM Page [id number] at 1155 All edits/amendments must be made on the electronic document DICTATION DATE: 03/11/19 1154 ELECTRO MECHANICAL SOLAR TECHNICIAN: VIET 03/11/19 1154 RPT#: [id number] DC DATE:03/10/19 STATUS: DIS IN [facility] [address] [place] [address] END OF REPORT
--- NOTE | 2019-03-11 12:36 | MORECARE ---
CASE MANAGEMENT DISCHARGE SUMMARY PATIENT: AFSANEH STORM UNIT: [id number] ADM DATE: 03/04/19 AGE: 63 : 57 SEX: F ROOM/BED: D.2584 AUTHOR: SATURNINO,DOC PHYSICIAN: REFERRING PHYSICIAN: MAYA MORGAN MD DATE OF SERVICE: 03/11/19 Discharge Plan Patient Name: AFSANEH STORM Facility: [facility]:[place] : 1955 Planned Disposition: Home with Home Health Anticipated Discharge Date: Discharge Date: 03/10/2019 Expected LOS: 0 Initial Reviewer: [email or web address] Initial Review Date: 03/04/2019 Generated: 03/11/19 1:35 pm DCP- Discharge Planning Updated by [id number]: Erlinda Oakes on 03/10/19 12:[address] Patient Name: AFSANEH STORM Admission Status: ER Accout number: [id number] Admission Date: 03-04-2019 : 1955 Admission Diagnosis:SEPSIS, UNSPECIFIED ORGANISM Attending: MAYA MORGAN Current LOS: 6 Anticipated DC Date: Planned Disposition: Home with Home Health Primary Insurance: MEDICAID [place] Discharge Planning Comments: CM met with patient to complete initial dc planning assessment. CM educated patient on the CM role and verbal consent given by patient to complete assessment. Patient lives at home with her sister and brother where she is partially dependent on ADLs. At discharge patient plans to return home and feels this is a safe discharge. CM discussed availability of home health, rehab services, and medical equipment. The patient had trouble answering questions and asked me to call Yen. I called Yen and she stated that she has [facility] 3 hours a day 7 days a week. She stated that she would like home health for her sister and would like [facility]. I will send the referral to [facility]. Their address in [address] [place] [address]' number [phone]. Patient denied known discharge needs at this time. CM will continue to follow and will assist as needed with dc plans/needs. Clock Repair Technician: Erlinda Oakes DCPIA - Discharge Planning Initial Assessment Updated by [email or web address]: Erlinda Oakes on 03/10/19 12:59 pm * Is the patient Alert and Oriented? Yes * PCP [facility] * Pharmacy [facility] * Preadmission Environment Home with Family * ADLs Partial Dependent * Partial ADLs (Assistance needed) Ambulation Bathing * Equipment Bedside Commode Elevated Toliet Seat Rolling Walker Shower Chair Walker Wheelchair * List name and contact numbers for known caregivers / representatives who currently or will assist patient after discharge: YEN (SISTER) [phone] * Verbal permission to speak to the caregivers and representatives has been obtained from the patient. Yes * Community resources currently utilized Advantage Program * Please name any agencies selected above. [facility] * Additional services required to return to the preadmission environment? Yes * Has this patient been hospitalized within the prior 30 days at any hospital? No Coverage Notice Reviewer: [id number] - Erlinda Oakes Notice Issued Date-Time: 03/10/2019 12:55 Notice Type: Patient Choice Letter Notice Delivered To: Family Member Relationship to Patient: Sister Bowling Ball Grader Name: yen Delivery Method: PHONE - Phone Lou Days: Prior Verbal Notification: Recipient Understood Notice: Yes Recipient Signature: Med Rec Note Co-signed by Attending: Coverage Notice Comment: via telephone with yen Ballard DP export: 03/11/19 10:55 a Patient Name: AFSANEH STORM Page [phone] at 1236 All edits/amendments must be made on the electronic document DICTATION DATE: 03/11/19 1235 FACILITIES MAINTENANCE TECHNICIAN: VIET 03/11/19 1235 RPT#: [id number] DC DATE:03/10/19 STATUS: DIS IN [facility] [address] [place] [address] END OF REPORT
== END 2019-03-10 14:27 | disposition home health service (06) | DRG 871 ==
LOC: D.ER 09:45 → D.MS 11:41
PROVIDERS: Family Medicine; ADMIT Internal Medicine Nephrology; ATTEND Internal Medicine Nephrology
DX: A41.9 Sepsis, unspecified organism (principal); E43 Unspecified severe protein-calorie malnutrition; N39.0 Urinary tract infection, site not specified; E87.2 Acidosis; G93.40 Encephalopathy, unspecified; N12 Tubulo-interstitial nephritis, not specified as acute or chronic; N17.9 Acute kidney failure, unspecified; D68.9 Coagulation defect, unspecified; R47.01 Aphasia; E07.89 Other specified disorders of thyroid; D64.9 Anemia, unspecified; I10 Essential (primary) hypertension; E11.9 Type 2 diabetes mellitus without complications; E78.5 Hyperlipidemia, unspecified; B96.20 Unspecified Escherichia coli [E. coli] as the cause of diseases classified elsewhere

== ENCOUNTER 2019-03-10 15:39 | Emergency (ER) | payer MEDICAID ==
[~2019-03-10 15:39] MED LIST changes: +BAYER CHEWABLE81 MG PO; +KEPPRA XR500 MG PO; +LEXAPRO20 MG PO; +LISINOPRIL40 MG PO; +MACRODANTIN100 MG PO; +PHENERGAN25 M1 PO; +VERAPAMIL HCL40 MG PO
[2019-03-10 15:56] VITALS: Ht 162.6 cm
[2019-03-10 17:41] VITALS: BP 110/53
== END 2019-03-10 17:41 | disposition home or self-care (01) ==
LOC: D.ER 15:39
DX: R53.1 Weakness (principal); R47.01 Aphasia; Z86.73 Personal history of transient ischemic attack (TIA), and cerebral infarction without residual deficits; E11.9 Type 2 diabetes mellitus without complications

== ENCOUNTER 2019-04-13 11:06 | Inpatient (IN) | payer MEDICAID ==
[~2019-04-13] VITALS: Ht 162.6 cm; Wt 68.2 kg
[2019-04-13 12:03] LABS: WBC 23.7 10x3/uL (4.8-10.8)
[2019-04-13 12:04] LABS: HEMATOCRIT 31.3 % (36.0-48.0); HEMOGLOBIN 9.5 g/dL (12-16); MCH 31.3 pg (26.0-34.0); MCHC 30.4 g/dL (31.0-37.0); MEAN PLATELET VOLUME 9.3 fL (7.4-10.4); PLATELET COUNT 366 10x3/uL (130-400); RBC 3.04 10x6/uL (4.00-5.40); RDW 18.7 % (11.5-14.5)
[2019-04-13 12:10] LABS: UDS - AMPHET NEGATIVE QUAL (NEGATIVE); UDS - BARB NEGATIVE QUAL (NEGATIVE); UDS - BENZO NEGATIVE QUAL (NEGATIVE); UDS - COCAINE NEGATIVE QUAL (NEGATIVE); UDS - OPIATE NEGATIVE QUAL (NEGATIVE); UDS - PCP NEGATIVE QUAL (NEGATIVE); UDS - THC NEGATIVE QUAL (NEGATIVE)
[2019-04-13 12:14] LABS: CALC OSMOLALITY 309 mosm/kg (275-300); CARBON DIOXIDE 25.1 mmol/L (21.0-32.0); CHLORIDE - SERUM 114 mmol/L (98-107); SODIUM 148 mmol/L (136-145); UREA NITROGEN 46 mg/dL (7-18); eGFR NON AFRICAN AMERICAN 27 mL/min (90-120)
[2019-04-13 12:18] LABS: APTT 27.4 SECONDS (22.8-39.4); GLUCOSE 162 mg/dL (74-106); INR 1.28 (0.85-1.17); PROTIME 15.9 SECONDS (11.6-15.0)
[2019-04-13 12:29] LABS: LYMPHOCYTES 11 % (15-50); MONOCYTES 5 % (2-11); NEUTROPHILS 77 % (40-80); PLATELET ESTIMATE NORMAL
[2019-04-13 12:30] LABS: BILIRUBIN NEGATIVE (NEGATIVE); GLUCOSE NEGATIVE (NEGATIVE); KETONE NEGATIVE (NEGATIVE); NITRITE POSITIVE (NEGATIVE); SPECIFIC GRAVITY 1.025 (1.005-1.020); UROBILINOGEN NORMAL (NORMAL)
[2019-04-13 12:31] LABS: WHITE CELLS - URINE 0-5 /hpf (NEGATIVE)
[2019-04-13 12:32] LABS: BACTERIA MANY /hpf (NEGATIVE); EPITHELIAL CELLS 0-5 /hpf (0-5); RED CELLS - URINE 0-5 /hpf (0-5)
[2019-04-13 12:43] LABS: ALBUMIN 1.2 g/dL (3.4-5.0); ALKALINE PHOSPHATASE 187 U/L (30-120); ALT (SGPT) 16 U/L (10-68); BILIRUBIN - TOTAL 0.62 mg/dL (0.2-1.3); CKMB 0.1 U/L (0.0-3.6); CREATINE KINASE 47 UL (21-215); MAGNESIUM - SERUM 2.6 mg/dL (1.8-2.4); PROTEIN - SERUM 8.2 g/dL (6.4-8.2); THYROID STIMULATING HORMONE 0.03 uIU/mL (0.36-3.74); TROPONIN-I < 0.017 ng/mL (0.000-0.060)
[2019-04-13] MEDS ORDERED: MACROBID100 MG PO (13:04)
[2019-04-13] MEDS ORDERED: FLAGYL500 MG PO (13:06)
[2019-04-13 15:26] VITALS: BP 126/51
[2019-04-13 17:16] VITALS: BP 111/75
[2019-04-13 17:31] LABS: % SATURATION 41 % (15-55); IRON 24 ug/dl (35-150); TOTAL IRON BIND CAPACITY 58 ug/dl (260-445); UNSAT IRON BIND CAPACITY 34 ug/dl (150-375)
[2019-04-13 20:00] VITALS: BP 98/61
[2019-04-14] VITALS: BP 89/53
[2019-04-14 04:00] VITALS: BP 107/56
[2019-04-14 07:17] LABS: ALBUMIN 0.9 g/dL (3.4-5.0); ANION GAP 12.5 mmol/L (8-16); BILIRUBIN - TOTAL 0.65 mg/dL (0.2-1.3); CALCIUM 7.7 mg/dL (8.5-10.1); CARBON DIOXIDE 24.3 mmol/L (21.0-32.0); CREATININE - SERUM 1.9 mg/dL (0.6-1.3); POTASSIUM - SERUM 3.8 mmol/L (3.5-5.1); PROTEIN - SERUM 6.6 g/dL (6.4-8.2)
[2019-04-14 08:21] LABS: BASOPHILS 0.1 % (0-2); EOSINOPHILS 0.2 % (0-7); HEMATOCRIT 27.2 % (36.0-48.0); HEMOGLOBIN 8.2 g/dL (12-16); IMMATURE GRANULOCYTES 0.4 % (0-5); LYMPHOCYTES 8.3 % (15-50); MCH 31.3 pg (26.0-34.0); MCHC 30.1 g/dL (31.0-37.0); MCV 103.8 fL (80.0-100.0); MEAN PLATELET VOLUME 8.8 fL (7.4-10.4); MONOCYTES 6.3 % (2-11); NEUTROPHILS 84.7 % (40-80); PLATELET COUNT 231 10x3/uL (130-400); RBC 2.62 10x6/uL (4.00-5.40); RDW 18.5 % (11.5-14.5); WBC 16.9 10x3/uL (4.8-10.8)
[2019-04-14 09:10] VITALS: BP 95/55
[2019-04-14 10:29] VITALS: BMI 24.0
[2019-04-14 12:52] VITALS: BP 93/52
[2019-04-14 16:20] VITALS: BP 113/53
--- NOTE | 2019-04-14 17:48 | NUR ---
OT NOTE: PT COMPLETED FACE WASH AND HAND HYGIENE WITH SET UP-MIN A. [phone] THANK YOU,WILMAN SIDHU
--- NOTE | 2019-04-14 18:40 | NUR ---
I have reviewed this patient and I concur with the Shift Assessment completed by the Licensed Practical Nurse today this shift.
[2019-04-14 20:00] VITALS: BP 90/54
[2019-04-15] VITALS: BP 82/46
[2019-04-15 04:00] VITALS: BP 93/55
[2019-04-15 04:38] LABS: BASOPHILS 0.1 % (0-2); EOSINOPHILS 0.5 % (0-7); HEMATOCRIT 26.7 % (36.0-48.0); HEMOGLOBIN 7.9 g/dL (12-16); IMMATURE GRANULOCYTES 0.4 % (0-5); LYMPHOCYTES 8.1 % (15-50); MCH 31.1 pg (26.0-34.0); MCHC 29.6 g/dL (31.0-37.0); MCV 105.1 fL (80.0-100.0); MEAN PLATELET VOLUME 9.2 fL (7.4-10.4); NEUTROPHILS 84.9 % (40-80); PLATELET COUNT 223 10x3/uL (130-400); RBC 2.54 10x6/uL (4.00-5.40); RDW 18.6 % (11.5-14.5)
[2019-04-15 04:51] LABS: CALCIUM 7.6 mg/dL (8.5-10.1); CARBON DIOXIDE 23.8 mmol/L (21.0-32.0); CREATININE - SERUM 2.2 mg/dL (0.6-1.3)
[2019-04-15 05:01] LABS: ANION GAP 12.1 mmol/L (8-16)
[2019-04-15 05:02] LABS: POTASSIUM - SERUM 2.9 mmol/L (3.5-5.1)
[2019-04-15 08:23] VITALS: BP 98/53
[2019-04-15 12:27] VITALS: BP 95/47
--- NOTE | 2019-04-15 12:30 | NUR ---
OT NOTE: PT REMAINS VERY RESISTANT TO SIT UP ON EOB..UNABLE TO DETERMINE WHY BECAUSE OF PTS APHASIA. ASSISTED PT WITH ORAL CARE AND WASHING FACE AND HANDS. PT VERY APRAXIC AND UNABLE TO PERFORM ORAL CARE.. PTS TEETH ARE IN VERY POOR CONDITION. HYGIENE ALSO POOR. REQUIRES MODERATE ASSIST WITH GROOMING; MIN/MOD ASSIST WITH BED MOB INCLUDING ROLLING SIDE TO SIDE. A/AROM EXS ALONG WITH COORDINATION TASKS. BRIJESH TERRY, OTR/L [phone]
--- NOTE | 2019-04-15 12:32 | NUR ---
I have reviewed this patient and I concur with the Shift Assessment completed by the Licensed Practical Nurse today this shift.
--- NOTE | 2019-04-15 15:56 | NUR ---
OT NOTE: ATTEMPTED TO ASSIST PT WITH FEEDING THIS AFTERNOON. PERFORMED ORAL CARE IN THE AM BUT MOST OF PTS TEETH WERE DECAYED. I WAS UNABLE TO UNDERSTAND WHAT SHE WAS TRYING TO TELL ME IN THE AM, HOWEVER, WITH ATTEMPTS OF FEEDING, I REALIZED THAT HER MOUTH WAS HURING.. SHE WAS UNABLE TO CHEW ANYTHING SOLID BECAUSE IT WAS TOO PAINFUL ON HER TEETH. ST ALSO WITNESSED AND WILL BE CHANGING PT TO PUREE DIET. BRIJESH TERRY, OTR/L [phone]
[2019-04-15 16:26] VITALS: BP 96/44
--- NOTE | 2019-04-15 16:50 | NUR ---
PT HAS BLISTER NOTED TO RIGHT THIGH FROM STAT-LOCK. WILL CONTINUE TO MONITOR. C/L IN REACH AT BEDSIDE.
[2019-04-15 19:30] VITALS: BP 96/48
[2019-04-16] VITALS: BP 104/50
--- NOTE | 2019-04-16 02:37 | NUR ---
I have reviewed this patient and I concur with the Shift Assessment completed by the Licensed Practical Nurse today this shift.
--- NOTE | 2019-04-16 03:53 | NUR ---
PT RESTING IN BED. EYES CLOSED. NO SIGNS OF DISTRESS. BREATHING EVEN AND UNLABORED. IV SITE RT WRIST. DRESSING CLEAN DRY AND INTACT. NO SIGNS OF INFECTION OR INFULTRATION. BOWEL SOUNDS ACTIVE. LUNG SOUNDS CLEAR. SKIN CLEAN DRY AND INTACT. WILL CONTINUE PLAN OF CARE. CALL LIGHT IN REACH. BED LOWERED AND LOCKED. BED RAILS UPX2.
[2019-04-16 04:00] VITALS: BP 112/58
[2019-04-16 06:29] LABS: BASOPHILS 0.1 % (0-2); EOSINOPHILS 0.7 % (0-7); HEMATOCRIT 27.4 % (36.0-48.0); IMMATURE GRANULOCYTES 0.5 % (0-5); LYMPHOCYTES 10.5 % (15-50); MCH 30.9 pg (26.0-34.0); MCHC 29.2 g/dL (31.0-37.0); MCV 105.8 fL (80.0-100.0); MEAN PLATELET VOLUME 9.4 fL (7.4-10.4); MONOCYTES 4.5 % (2-11); NEUTROPHILS 83.7 % (40-80); PLATELET COUNT 207 10x3/uL (130-400); RBC 2.59 10x6/uL (4.00-5.40); RDW 18.4 % (11.5-14.5)
[2019-04-16 06:40] LABS: CALCIUM 7.4 mg/dL (8.5-10.1); CARBON DIOXIDE 22.1 mmol/L (21.0-32.0); CREATININE - SERUM 1.9 mg/dL (0.6-1.3)
[2019-04-16 07:34] LABS: ANION GAP 12.2 mmol/L (8-16); POTASSIUM - SERUM 4.3 mmol/L (3.5-5.1)
--- NOTE | 2019-04-16 07:58 | NUR ---
NUTRITION F/U CHART REVIEWED. PT DIET CHANGE TO PUREED NOTED. WILL CONTINUE GLUCERNA SHAKE WITH MEALS. MONITOR PO INTAKE. RD FOLLOWING
--- NOTE | 2019-04-16 08:00 | NUR ---
PT RESTING IN BED WITH EYES CLOSED. PT AWAKENS UPON NAME BEING CALLED. PT SPEAKS WITH HEY, BUT OTHER COMMUNICATION IS GARBLED. SPEECH IS CLEAR AT TIMES. PT DENIES PAIN AT THIS TIME. IV TO RIGHT WRIST WITH 1/2 NS W/ 20KCL @ 100ML/HR INFUSING VIA PUMP. SITE WITHOUT REDNESS OR EDEMA. DENIES FURTHER NEEDS AT THIS TIME. CL WITHIN REACH. ENCOURAGED TO CALL WITH NEEDS. CONTINUE POC
[2019-04-16 10:00] VITALS: BP 94/49
[2019-04-16 13:47] VITALS: BP 92/58
--- NOTE | 2019-04-16 17:24 | NUR ---
OT NOTE: PT COMPLETED FACE WASH AND HAND HYGIENE WITH MIN/MOD A. PT COMPLETED BED POSITIONING WITH MIN A. [phone] THANK YOU,WILMAN SIDHU
[2019-04-16 18:09] VITALS: BP 92/43
--- NOTE | 2019-04-16 18:32 | NUR ---
OT NOTE: IN TO SEE PT WITH ST.. PT PROVIDED WITH PUREE AND PERFORMED MUCH BETTER. PT ABLE TO FEED SELF WITH ONLY OCCASSIONAL ASSIST. NO C/O PAIN IN MOUTH SHE WAS DOING YESTERDAY. ABLE TO WASH FACE WITH SET UP..PT AGAIN RESISTANT TO PERFORM BED MOB AND REFUSED TO ATTEMPT SIT TO STAND. REMAINS DECONDITIONED.. WILL ATTEMPT TO TRANSFER TO CHAIR AGAIN TOMORROW. BRIJESH TERRY, OTR/L [phone]
[2019-04-16 18:33] VITALS: BP 92/58; Ht 162.6 cm; Wt 68.2 kg
[2019-04-16 20:12] LABS: HEMATOCRIT 30.1 % (36.0-48.0); HEMOGLOBIN 8.7 g/dL (12-16)
[2019-04-17] VITALS: BP 104/63
--- NOTE | 2019-04-17 03:41 | NUR ---
I have reviewed this patient and I concur with the Shift Assessment completed by the Licensed Practical Nurse today this shift.
[2019-04-17 04:00] VITALS: BP 119/57
[2019-04-17 04:22] LABS: BASOPHILS 0.1 % (0-2); EOSINOPHILS 0.9 % (0-7); HEMATOCRIT 25.7 % (36.0-48.0); HEMOGLOBIN 7.6 g/dL (12-16); IMMATURE GRANULOCYTES 0.9 % (0-5); LYMPHOCYTES 12.2 % (15-50); MCH 31.1 pg (26.0-34.0); MCHC 29.6 g/dL (31.0-37.0); MCV 105.3 fL (80.0-100.0); MEAN PLATELET VOLUME 9.4 fL (7.4-10.4); MONOCYTES 4.3 % (2-11); NEUTROPHILS 81.6 % (40-80); PLATELET COUNT 223 10x3/uL (130-400); RBC 2.44 10x6/uL (4.00-5.40); WBC 18.5 10x3/uL (4.8-10.8)
[2019-04-17 04:41] LABS: ANION GAP 11.6 mmol/L (8-16); CALCIUM 7.8 mg/dL (8.5-10.1); CARBON DIOXIDE 21.2 mmol/L (21.0-32.0); CREATININE - SERUM 1.8 mg/dL (0.6-1.3); POTASSIUM - SERUM 4.8 mmol/L (3.5-5.1)
--- NOTE | 2019-04-17 08:00 | NUR ---
ALERT AND ORIENTED WITH EXPRESSIVE APHASIA NOTED AND ABLE TO ANSWER WITH YES AND NO QUESTIONS.IV INFILTRATED AND RESITED TO LUE. INCONTINENT OF BOWEL AND BLADDER WITH PERICARE DONE WITH EACH INCONT. EPISODE. REQURES SET UP ASSSIT ONLY FOR MEALS. ENCOURAGED TO USE CALL LIGHT FOR ASSSIT.
[2019-04-17 09:30] VITALS: BP 94/57
--- NOTE | 2019-04-17 10:20 | NUR ---
STARTED 1 UNIT PRBC'S. WITH NO S/S OF REACTION NOTED.
--- NOTE | 2019-04-17 13:30 | NUR ---
FINISHED PRBC'S AND FLUSHED WITH 100CC N/S. STABLE AT THIS TIME
--- NOTE | 2019-04-17 14:27 | MORECARE ---
CASE MANAGEMENT DISCHARGE SUMMARY PATIENT: AFSANEH STORM UNIT: [id number] ADM DATE: 04/13/19 AGE: 63 : 57 SEX: F ROOM/BED: D.2204 AUTHOR: CHRIS MATAMOROS PHYSICIAN: REFERRING PHYSICIAN: MAYA MORGAN MD DATE OF SERVICE: 04/17/19 Discharge Plan Patient Name: AFSANEH STORM [facility] : 1955 Planned Disposition: Home or Self Care Anticipated Discharge Date: Discharge Date: Expected LOS: Initial Reviewer: [email or web address] Initial Review Date: 04/13/2019 Generated: 04/17/19 3:27 pm DCPIA - Discharge Planning Initial Assessment Updated by [email or web address]: Erlinda Oakes on 04/17/19 2:26 pm * Is the patient Alert and Oriented? Yes * PCP EDVIN * Pharmacy [facility] * Preadmission Environment Home with Family * ADLs Total Dependent * Equipment Bedside Commode Rolling Walker Shower Chair Walker Wheelchair * List name and contact numbers for known caregivers / representatives who currently or will assist patient after discharge: YARITZA (SISTER) [phone] * Verbal permission to speak to the caregivers and representatives has been obtained from the patient. N/A * Community resources currently utilized Advantage Program * Please name any agencies selected above. [facility] * Additional services required to return to the preadmission environment? Yes * Has this patient been hospitalized within the prior 30 days at any hospital? No Patient Name: AFSANEH STORM Page [phone] at 1427 All edits/amendments must be made on the electronic document DICTATION DATE: 04/17/19 1427 RIVET SPINNER: VIET 04/17/19 1427 RPT#: [id number] DC DATE: STATUS: ADM IN [address] [place] [address] END OF REPORT
--- NOTE | 2019-04-17 14:35 | MORECARE ---
CASE MANAGEMENT DISCHARGE SUMMARY PATIENT: AFSANEH STORM UNIT: [id number] ADM DATE: 04/13/19 AGE: 63 : 57 SEX: F ROOM/BED: D.2204 AUTHOR: SATURNINO,DOC PHYSICIAN: REFERRING PHYSICIAN: MAYA MORGAN MD DATE OF SERVICE: 04/17/19 Discharge Plan Patient Name: AFSANEH STORM Facility: [facility]:[place] : 1955 Planned Disposition: Home or Self Care Anticipated Discharge Date: Discharge Date: Expected LOS: Initial Reviewer: [email or web address] Initial Review Date: 04/13/2019 Generated: 04/17/19 3:35 pm DCP- Discharge Planning Updated by [email or web address]: Erlinda Oakes on 04/17/19 1:[address] Patient Name: AFSANEH STORM Admission Status: Elective Accout number: [id number] Admission Date: 04-13-2019 : 1955 Admission Diagnosis:SEPSIS, UNSPECIFIED ORGANISM Attending: MAYA MORGAN Current LOS: 4 Anticipated DC Date: Planned Disposition: Home or Self Care Primary Insurance: MEDICAID [place] Discharge Planning Comments: PATIENT IS APSASIC AND UNABLE TO ANSWER QUESTIONS, SHE LIVES AT HOME WITH HER SISTER AND BROTHER. SHE IS NOT ABLE TO CARE FOR HERSELF, SHE DOES HAVE [facility]. LAST TIME SHE WAS AT THE HOSPITAL SHE WAS ENCOURAGED TO GO TO A FACILITY IF HER FAMILY COULD NOT CARE FOR HER. [facility] 3 HOURS A DAY 7 DAYS A WEEK. YARITZA WILL BE THE SHANK THREADER HER NUMBER IS [phone] Iron Cutter: Erlinda Oakes DCPIA - Discharge Planning Initial Assessment Updated by [id number]: Erlinda Oakes on 04/17/19 2:26 pm * Is the patient Alert and Oriented? Yes * PCP EDVIN * [facility]acy [facility] * Preadmission Environment Home with Family * ADLs Total Dependent * Equipment Bedside Commode Rolling Walker Shower Chair Walker Wheelchair * List name and contact numbers for known caregivers / representatives who currently or will assist patient after discharge: YARITZA (SISTER) [phone] * Verbal permission to speak to the caregivers and representatives has been obtained from the patient. N/A * Community resources currently utilized Advantage Program * Please name any agencies selected above. [facility] * Additional services required to return to the preadmission environment? Yes * Has this patient been hospitalized within the prior 30 days at any hospital? No Last DP export: 04/17/19 1:27 p Patient Name: AFSANEH STORM Page [id number] at 1435 All edits/amendments must be made on the electronic document DICTATION DATE: 04/17/19 1435 DIRECT SALES CONSULTANT: VIET 04/17/19 1435 RPT#: [id number] DC DATE: STATUS: ADM IN [facility] [address] [place] [address] END OF REPORT
[2019-04-17 17:37] VITALS: BP 111/54
[2019-04-17 20:00] VITALS: BP 98/56
[2019-04-18] VITALS: BP 101/54
--- NOTE | 2019-04-18 00:40 | NUR ---
PT HAD ANOTHER INCONTINENT BM...SMALLER THAN EARLIER, BUT STILL WITH BLOOD PRESENT. BUTTOCKS AND INGUINAL AREAS REDDENED...APPLIED ALYSIA'S PASTE TO AREAS. TURNED PT ONTO RIGHT SIDE OFF BUTTOCKS PROPPED WITH PILLOW. WILL CONTINUE TO MONITOR FOR NEEDS.
--- NOTE | 2019-04-18 03:00 | NUR ---
I have reviewed this patient and I concur with the Shift Assessment completed by the Licensed Practical Nurse today this shift.
[2019-04-18 04:00] VITALS: BP 91/47
--- NOTE | 2019-04-18 05:16 | NUR ---
PT RESTING IN BED. EYES CLOSED. NO SIGNS OF DISTRESS. BREATHING EVEN AND UNLABORED. IV SITE LT UPPER ARM DRESSING CLEAN DRY AND INTACT. NO SIGNS OF INFECTION OR INFULTRATION. BOWEL SOUNDS ACTIVE. LUNG SOUNDS CLEAR. SKIN CLEAN DRY AND INTACT. WILL CONTINUE PLAN OF CARE. CALL LIGHT IN REACH. BED RAILS UPX2.
--- NOTE | 2019-04-18 05:54 | NUR ---
PT REFUSED BLOOD DRAW THIS AM.
[2019-04-18 08:48] VITALS: BP 94/39
[2019-04-18 09:52] LABS: HEMATOCRIT 28.7 % (36.0-48.0); HEMOGLOBIN 8.7 g/dL (12-16); MCH 30.9 pg (26.0-34.0); MCHC 30.3 g/dL (31.0-37.0); MEAN PLATELET VOLUME 9.9 fL (7.4-10.4); RBC 2.82 10x6/uL (4.00-5.40); RDW 17.9 % (11.5-14.5); WBC 17.3 10x3/uL (4.8-10.8)
[2019-04-18 09:53] LABS: MCV 101.8 fL (80.0-100.0); PLATELET COUNT 158 10x3/uL (130-400)
[2019-04-18 10:12] LABS: LYMPHOCYTES 1 % (15-50); MONOCYTES 2 % (2-11); NEUTROPHILS 87 % (40-80); PLATELET ESTIMATE NORMAL
[2019-04-18 10:34] LABS: ALBUMIN 0.7 g/dL (3.4-5.0); ANION GAP 13.2 mmol/L (8-16); BILIRUBIN - TOTAL 0.35 mg/dL (0.2-1.3); CALCIUM 7.6 mg/dL (8.5-10.1); CARBON DIOXIDE 18.1 mmol/L (21.0-32.0); CREATININE - SERUM 1.5 mg/dL (0.6-1.3); POTASSIUM - SERUM 5.3 mmol/L (3.5-5.1)
[2019-04-18 13:01] VITALS: BP 108/53
--- NOTE | 2019-04-18 16:08 | NUR ---
PATIENT RESTING IN BED THROUGH DAY WITH NO DISTRESS. CL IN REAC, FAMILY AT TIMES.
[2019-04-18 16:34] VITALS: BP 90/47
--- NOTE | 2019-04-18 19:00 | NUR ---
BEDSIDE REPORT RECEIVED AND CARE OF PT ASSUMED. PT LYING IN LOW LICEA'S POSITION WATCHING TV. IV TO LEFT UPPER ARM PATENT WITH 1/2 NS W/ 20 KCL INFUSING AT 100 ML/HR. WILL MONITOR FOR NEEDS.
[2019-04-18 19:46] VITALS: BP 102/50
--- NOTE | 2019-04-18 20:40 | NUR ---
HS MEDICATIONS GIVEN CRUSHED AND MIXED WITH APPLESAUCE.
--- NOTE | 2019-04-18 21:12 | NUR ---
PT JUST HAD LARGE INCONTINENT BLOODY STOOL. CALLED CEDRICK MCGHEE [facility] ANIMAL TECHNICIAN AND RECEIVED ORDER TO PERFORM Q6 HR H&H AND TO CALL HIM BACK IF SHE HAS ANY MORE BLOODY STOOLS TONIGHT.
[2019-04-18 21:37] LABS: HEMATOCRIT 26.6 % (36.0-48.0); HEMOGLOBIN 8.2 g/dL (12-16)
[2019-04-19] VITALS: BP 96/44
[2019-04-19 04:00] VITALS: BP 92/45
[2019-04-19 07:52] VITALS: BP 97/54
--- NOTE | 2019-04-19 08:52 | NUR ---
ALERT AND ORIENTED TO SELF AND PLACE. LUNGS CLEAR BILATERALLY. HEART SOUNDS S1 AND S2 HEARD IN ALL WARE. BOWEL SOUNDS ACTIVE X 4. BUTTOCKS RED BUT BLANCHABLE. EXCORIATION TO RIGHT INGUINAL AREA. IV TO KIP PATENT WITHOUT REDNESS. DENIES NEEDS. BED LOW. CALL AMOR AND PERSONAL ITEMS IN REACH. WILL CONTINUE TO MONITOR.
[2019-04-19 09:18] LABS: BASOPHILS 0.1 % (0-2); EOSINOPHILS 0.8 % (0-7); HEMATOCRIT 27.6 % (36.0-48.0); HEMOGLOBIN 8.5 g/dL (12-16); IMMATURE GRANULOCYTES 0.6 % (0-5); LYMPHOCYTES 10.2 % (15-50); MCH 31.1 pg (26.0-34.0); MCHC 30.8 g/dL (31.0-37.0); MCV 101.1 fL (80.0-100.0); MEAN PLATELET VOLUME 8.9 fL (7.4-10.4); NEUTROPHILS 82.3 % (40-80); PLATELET COUNT 156 10x3/uL (130-400); RBC 2.73 10x6/uL (4.00-5.40); RDW 17.3 % (11.5-14.5); WBC 14.5 10x3/uL (4.8-10.8)
[2019-04-19 09:37] LABS: ANION GAP 13.4 mmol/L (8-16); CALCIUM 7.5 mg/dL (8.5-10.1); CARBON DIOXIDE 19.2 mmol/L (21.0-32.0); CREATININE - SERUM 1.4 mg/dL (0.6-1.3); INR 1.15 (0.85-1.17); MAGNESIUM - SERUM 1.7 mg/dL (1.8-2.4); PHOSPHOROUS 2.6 mg/dL (2.5-4.9); POTASSIUM - SERUM 5.6 mmol/L (3.5-5.1); PROTIME 14.6 SECONDS (11.6-15.0)
[2019-04-19 11:54] VITALS: BP 99/45
--- NOTE | 2019-04-19 12:35 | NUR ---
RESTING IN BED. DENIES NEEDS. WILL CONTINUE TO MONITOR.
--- NOTE | 2019-04-19 14:16 | NUR ---
OT NOTE: (DOS 04/17/19) PT COMPLETED FACE AND HAND HYGIENE TASKS WITH MIN/MOD A. PT REQUIRED MIN CUE TO RAISE ARM TO WIPE FACE AND INCREASE PARTICIPATION. [phone] THANK YOU,WILMAN SIDHU
[2019-04-19 16:07] VITALS: BP 113/55
[2019-04-19 16:14] LABS: HEMATOCRIT 25.6 % (36.0-48.0)
--- NOTE | 2019-04-19 18:49 | NUR ---
RESTING IN BED. DENIES NEEDS. CALL AMOR AND PERSONAL IETMS IN REACH.
--- NOTE | 2019-04-19 19:00 | NUR ---
BEDSIDE REPORT RECEIVED AND CARE OF PT ASSUMED. PT LYING IN LOW LICEA'S POSITION WATCHING TV. IV TO LEFT UPPER ARM PATENT. WILL MONITOR FOR NEEDS.
[2019-04-19 20:00] VITALS: BP 97/53
--- NOTE | 2019-04-19 20:59 | NUR ---
HS MEDICATIONS GIVEN. FSBS 77 THIS CHECK REQUIRING NO COVERAGE PER SLIDING SCALE. GAVE GLUCERNA SHAKE FOR HS SNACK.
[2019-04-19 21:19] LABS: HEMATOCRIT 26.4 % (36.0-48.0); HEMOGLOBIN 8.2 g/dL (12-16)
--- NOTE | 2019-04-19 21:20 | NUR ---
RECEIVED ORDER FOR CALASEPTINE OINTMENT BID PRN FOR REDNESS ON BUTTOCKS.
--- NOTE | 2019-04-19 22:24 | NUR ---
IV INFILTRATED AND SWOLLEN. REMOVED WITH CATHETER TIP INTACT.
--- NOTE | 2019-04-19 23:00 | NUR ---
IV RE-SITED TO RIGHT FA USING 20 GUAGE CATHETER IN ONE STICK BY SCOTT OLIVEIRA LPN. IV FLUIDS RE-STARTED.
[2019-04-20] VITALS (11 sets, daily range): BP systolic 91–117; BP diastolic 40–65
--- NOTE | 2019-04-20 00:25 | NUR ---
PT HAD SMALL LOOSE BLOODY STOOL.
--- NOTE | 2019-04-20 00:53 | NUR ---
PT BATHED AND ALL LINENS AND GOWN CHANGED.
--- NOTE | 2019-04-20 01:43 | NUR ---
PT HAD ANOTHER BLODDY / RUST COLORED MED STOOL. CHANGED BED PAD AND CLEANSED PT. WILL CONTINUE TO MONITOR FOR NEEDS.
--- NOTE | 2019-04-20 04:13 | NUR ---
PT HAS HAD SEVERAL RUST COLORED / BLOODY STOOLS OVER THIS SHIFT. SHE DID ALLOW JIG BOX OPERATOR TO DRAW BLOOD THIS AM...WILL AWAIT BLOOD COUNT RESULTS.
[2019-04-20 04:52] LABS: BASOPHILS 0.1 % (0-2); EOSINOPHILS 0.8 % (0-7); HEMATOCRIT 25.1 % (36.0-48.0); HEMOGLOBIN 7.6 g/dL (12-16); IMMATURE GRANULOCYTES 0.8 % (0-5); LYMPHOCYTES 11.6 % (15-50); MCH 30.6 pg (26.0-34.0); MCHC 30.3 g/dL (31.0-37.0); MCV 101.2 fL (80.0-100.0); MEAN PLATELET VOLUME 9.1 fL (7.4-10.4); NEUTROPHILS 80.7 % (40-80); RBC 2.48 10x6/uL (4.00-5.40); RDW 16.8 % (11.5-14.5); WBC 14.1 10x3/uL (4.8-10.8)
[2019-04-20 05:01] LABS: PLATELET COUNT 198 10x3/uL (130-400)
[2019-04-20 05:03] LABS: ANION GAP 11.4 mmol/L (8-16); CALCIUM 7.2 mg/dL (8.5-10.1); CARBON DIOXIDE 18.6 mmol/L (21.0-32.0); CREATININE - SERUM 1.6 mg/dL (0.6-1.3); MAGNESIUM - SERUM 1.6 mg/dL (1.8-2.4); PHOSPHOROUS 3.1 mg/dL (2.5-4.9)
--- NOTE | 2019-04-20 07:20 | NUR ---
PATIENT RESTING ON LEFT SIDE. NO NEEDS AT THIS TIME. CL IN REACH. WCTM
[2019-04-20 09:24] LABS: HEMATOCRIT 25.5 % (36.0-48.0); HEMOGLOBIN 7.9 g/dL (12-16)
--- NOTE | 2019-04-20 11:40 | NUR ---
PATIENT CLEANED UP AND BED CHANGED. BM AND URINE BOTH. CL IN REACH. NO FURTHER NEEDS AT THIS TIME. WCTM
--- NOTE | 2019-04-20 13:09 | NUR ---
FAMILY IN ROOM. BLOOD INFUSING. TOLERATING WELL. CL IN REACH. LUNCH TRAY SET UP. TM
--- NOTE | 2019-04-20 13:16 | NUR ---
OT NOTE: PT REFUSED SEVERAL TIMES IN AM, HOWEVER, ON 3RD ATTEMPT, ASSISTED PT TO EOB. NOTED THAT SHE HAD LIQUID BM.. CLEANED PT AND RE APPLIED SKIN BARRIER. SKIN VERY RED AND TENDER. ASSISTED PT TO EOB WITH MOD ASSIST FOR SUPINE TO SIT; MIN ASSIST WITH STATIC SITTING BALANCE; PT ABLE TO FEED SELF A FEW BITES OF ICE CREAM WHILE SITTING OB EOB. PT CONTINUALLY TRYING TO LIE BACK IN BED BUT SHE WAS ENCOURAGED TO SIT UP FOR APPROX 5 MORE MIN. REFUSED TO STAND OR TRANSFER BUT AT LEAST SHE AGREED TO SIT UP TODAY. MOD ASSIST WITH BED MOB. BRIJESH TERRY, OTR/L [phone]
[2019-04-20 15:47] LABS: HEMATOCRIT 29.8 % (36.0-48.0); HEMOGLOBIN 9.3 g/dL (12-16)
--- NOTE | 2019-04-20 19:00 | NUR ---
BEDSIDE REPORT RECEIVED AND CARE OF PT ASSUMED. PT LYING IN MID LICEA'S POSITION WATCHING TV. IV TO RIGHT FA PATENT WITH 1/2 NS INFUSING AT 100 ML/HR. WILL MONITOR FOR NEEDS.
--- NOTE | 2019-04-20 20:15 | NUR ---
HS MEDICATIONS GIVEN WITH GLUCERNA SHAKE HS SNACK. FSBS 74 THIS CHECK REQUIRING NO COVERAGE PER SLIDING SCALE.
[2019-04-20 21:28] LABS: HEMATOCRIT 32.7 % (36.0-48.0); HEMOGLOBIN 10.7 g/dL (12-16)
--- NOTE | 2019-04-20 21:38 | NUR ---
PT HAD INCONTINENT BM AND URINE. STOOL RUST IN COLOR WITH NO HANNAH BLOOD. CHANGED BEDPADS AND APPLIED CALASEPTINE TO REDNESS ON BUTTOCKS AND INGUINAL AREA.
[2019-04-21] VITALS: BP 116/62
[2019-04-21 04:00] VITALS: BP 140/68
[2019-04-21 06:19] LABS: BASOPHILS 0.1 % (0-2); EOSINOPHILS 0.6 % (0-7); HEMATOCRIT 34.8 % (36.0-48.0); HEMOGLOBIN 11.3 g/dL (12-16); IMMATURE GRANULOCYTES 0.8 % (0-5); LYMPHOCYTES 9.2 % (15-50); MCH 30.3 pg (26.0-34.0); MCHC 32.5 g/dL (31.0-37.0); MEAN PLATELET VOLUME 8.9 fL (7.4-10.4); MONOCYTES 5.7 % (2-11); NEUTROPHILS 83.6 % (40-80); PLATELET COUNT 178 10x3/uL (130-400); RDW 19.6 % (11.5-14.5); WBC 14.6 10x3/uL (4.8-10.8)
[2019-04-21 06:21] LABS: ANION GAP 12.3 mmol/L (8-16); CALCIUM 7.3 mg/dL (8.5-10.1); CARBON DIOXIDE 18.7 mmol/L (21.0-32.0); CREATININE - SERUM 1.8 mg/dL (0.6-1.3); MAGNESIUM - SERUM 1.6 mg/dL (1.8-2.4); PHOSPHOROUS 3.5 mg/dL (2.5-4.9)
[2019-04-21 06:34] LABS: MCV 93.3 fL (80.0-100.0); RBC 3.73 10x6/uL (4.00-5.40)
[2019-04-21 09:11] VITALS: BP 115/63
--- NOTE | 2019-04-21 11:52 | NUR ---
Rehab Note- Acute Inpatient Rehab prescreen order received. The patient has Medicaid only and cannot be admitted to [facility] Acute Inpatient Rehab. Thank you for this referral! Cecile Marvin RN Clinical Liaison, [facility] Rehab
--- NOTE | 2019-04-21 12:30 | NUR ---
OT NOTE: ASSISTED PT WITH BED MOB; MOD/MAX ASSIST WITH ROLLING FROM SIDE TO SIDE; NURSING ASSISTED WITH PERINEAL CARE AND REPOSITIONING IN BED. ASSISTED WITH FEEDING.. PT REQUIRES MOD ASSIST WITH ACTUAL FEEDING AND MAX ENCOURAGEMENT. ABLE TO WASH FACE AND HANDS WITH CLOTH AND SET UP. BRIJESH TERRY, OTR/L [phone]
[2019-04-21 13:31] VITALS: BP 119/83
[2019-04-21 18:08] VITALS: BP 116/79
--- NOTE | 2019-04-21 18:46 | NUR ---
OT NOTE: PT COMPLETED FACE AND HAND HYGIENE WITH MAX A. PT COMPLETED UE AROM TOLERATED. NURSING NOTIFIED FINGER BANDAGE WET. [phone] THANK YOU,WILMAN SIDHU
--- NOTE | 2019-04-21 19:00 | NUR ---
BEDSIDE REPORT RECEIVED AND CARE OF PT ASSUMED. PT LYING IN SUPINE POSITION WATCHING TV. IV TO RIGHT FA PATENT WITH 1/2 NS INFUSING AT 100 ML/HR. WILL MONITOR FOR NEEDS.
--- NOTE | 2019-04-21 19:45 | NUR ---
BEDPADS AND GOWN CHANGED DUE TO INCONTINENC OF BOWEL AND BLADDER. STOOL RUST IN COLOR WITH NO HANNAH BLOOD. POSITIONED FOR COMFORT.
[2019-04-21 20:00] VITALS: BP 98/54
--- NOTE | 2019-04-21 20:25 | NUR ---
HS MEDICATIONS GIVEN. FSBS 106 THIS CHECK REQUIRING NO COVERAGE PER SLIDING SCALE. WILL CONTINUE TO MONITOR FOR NEEDS.
[2019-04-22] VITALS: BP 100/61
[2019-04-22 04:00] VITALS: BP 99/57
[2019-04-22 04:33] LABS: BASOPHILS 0.1 % (0-2); HEMATOCRIT 33.8 % (36.0-48.0); HEMOGLOBIN 10.8 g/dL (12-16); IMMATURE GRANULOCYTES 1.2 % (0-5); LYMPHOCYTES 10.9 % (15-50); MCV 93.9 fL (80.0-100.0); MONOCYTES 6.3 % (2-11); NEUTROPHILS 80.5 % (40-80); PLATELET COUNT 188 10x3/uL (130-400); RDW 19.1 % (11.5-14.5); WBC 15.2 10x3/uL (4.8-10.8)
[2019-04-22 05:00] LABS: ANION GAP 13.4 mmol/L (8-16); CALCIUM 7.6 mg/dL (8.5-10.1); CARBON DIOXIDE 18.3 mmol/L (21.0-32.0); CREATININE - SERUM 1.9 mg/dL (0.6-1.3); PHOSPHOROUS 3.6 mg/dL (2.5-4.9); POTASSIUM - SERUM 4.7 mmol/L (3.5-5.1)
[2019-04-22 05:10] LABS: MAGNESIUM - SERUM 2.3 mg/dL (1.8-2.4)
--- NOTE | 2019-04-22 07:59 | NUR ---
RESTING IN BED, NO DISTRESS NOTED, CONT TO MONITOR BLOOD LEVELS AND SUGARS, IV INFUSING PER RFA
[2019-04-22 09:53] VITALS: BP 109/63
--- NOTE | 2019-04-22 10:01 | NUR ---
NUTRITION F/U PT TOLERATING RENAL ADA PUREED DIET WITH 25% INTAKE BREAKFAST. SMALL AMT GLUCERNA SHAKE WELL. RECENT BM RECORDED. WILL CONTINUE TO PROVIDE DIET AND GLUCERNA. ENCOURAGE PO INTAKE. RD FOLLOWING
--- NOTE | 2019-04-22 11:01 | NUR ---
ASSISTED BY SPEECH WITH BREAKFAST, CONT TO MONITOR
--- NOTE | 2019-04-22 12:12 | NUR ---
SUGAR 60, PT GIVEN OJ AND SHE DRANK IT WITH EASE
[2019-04-22 13:11] VITALS: BP 110/37
--- NOTE | 2019-04-22 15:10 | NUR ---
OT NOTE: ASSISTED PT WITH AM FEEDING. PT CONSUMED MORE THAN YESTERDAY..APPROX 9-10 BITES OF PUREED BREAKFAST. PT REQUIRES ASSIST WITH FEEDING AND CONTINUES TO EXHIBIT POOR APPETITE.. REQUIRES CONTINUAL ENCOURAGEMENT TO EAT. MIN ASSIST WITH WASHING HANDS AND FACE. MAX ASSIST WITH PERINEAL CARE. MOD ASSIST WITH POSITIONING IN BED. BRIJESH TERRY, OTR/L
[2019-04-22 17:02] VITALS: BP 111/53
--- NOTE | 2019-04-22 17:44 | NUR ---
OT NOTE: PT COMPLETED BED POSITIONING TASKS WITH MOD A. PT COMPLETED FACE AND HAND HYGIENE WITH MIN/MOD A. [phone] THANK YOU,WILMAN SIDHU
[2019-04-22 20:00] VITALS: BP 125/63
--- NOTE | 2019-04-22 20:00 | NUR ---
ALERT LINITED SPEECH, RESTING IN BED DENIES PAIN ACCUCHECK 77 DRANK SOME APPLE JUICE WITHOUT DIFFICULTY, REFUSSED TO EAT ANYTHING OFFERED, SEE SHIFT ASSEESSMENT CALL LIGHT IN REACH
[2019-04-23] VITALS: BP 107/54
--- NOTE | 2019-04-23 01:53 | NUR ---
BLOOD SUGAR RECHECKED AT 71, DRANK FEW SIPS OF ENSURE, REFUSED ANYTHING ELSE
[2019-04-23 04:00] VITALS: BP 114/56
[2019-04-23 05:50] LABS: BASOPHILS 0.1 % (0-2); EOSINOPHILS 0.6 % (0-7); HEMATOCRIT 34.9 % (36.0-48.0); HEMOGLOBIN 11.2 g/dL (12-16); IMMATURE GRANULOCYTES 0.6 % (0-5); LYMPHOCYTES 9.3 % (15-50); MCH 30.2 pg (26.0-34.0); MCHC 32.1 g/dL (31.0-37.0); MCV 94.1 fL (80.0-100.0); MEAN PLATELET VOLUME 9.2 fL (7.4-10.4); MONOCYTES 5.8 % (2-11); NEUTROPHILS 83.6 % (40-80); PLATELET COUNT 207 10x3/uL (130-400); RBC 3.71 10x6/uL (4.00-5.40); RDW 19.1 % (11.5-14.5)
[2019-04-23 06:26] LABS: ANION GAP 15.1 mmol/L (8-16); CALCIUM 7.5 mg/dL (8.5-10.1); CARBON DIOXIDE 16.1 mmol/L (21.0-32.0); CREATININE - SERUM 2.1 mg/dL (0.6-1.3); MAGNESIUM - SERUM 2.3 mg/dL (1.8-2.4); PHOSPHOROUS 4.5 mg/dL (2.5-4.9); POTASSIUM - SERUM 5.2 mmol/L (3.5-5.1)
--- NOTE | 2019-04-23 07:30 | NUR ---
PATIENT LAYING ON RIGHT SIDE. IV THERAPY RESTARTED. ARM WAS BENT. ARM BOARD AND KERLEX WRAPPED TO KEEP LEFT ARM STRAIGHT. CL IN REACH. NO FURTHER NEEDS AT THIS TIME. WCTM
[2019-04-23 09:34] VITALS: BP 106/48
--- NOTE | 2019-04-23 11:45 | NUR ---
PATIENT PUREWICK IN PLACE. TURNED TO LEFT SIDE. NO FURTHER NEEDS AT THIS TIME. WCTM
[2019-04-23 13:04] VITALS: BP 107/52
--- NOTE | 2019-04-23 17:07 | NUR ---
OT NOTE: PT COMPLETED ORAL HYGIENE WITH MAX/TOTAL A. PT COMPLETED FACE AND HAND HYGIENE WITH MIN/MOD A. PT COMPLETED BED MOB TASKS WITH MOD A. PT COMPLETED UE AAROM AXS. [phone] THANK YOU, WILMAN SIDHU
[2019-04-23 18:07] VITALS: BP 111/57
--- NOTE | 2019-04-23 18:28 | NUR ---
OT NOTE: PT COMPLETED FINGERNAIL HYGIENE WITH VICTOR MANUEL Chan PT COMPLETED BUE CRISTIANA EX. [phone] THANK YOU,WILMAN SIDHU
--- NOTE | 2019-04-23 19:04 | NUR ---
BLOOD GLUCOSE CHECKED. WAS 78. STRAWBERRY ENSURE AND JELLO AT DINNER BROUGHT IT UP FROM 65. CL IN REACH. WCTM
[2019-04-23 20:00] VITALS: BP 103/44
--- NOTE | 2019-04-23 20:00 | NUR ---
PATIENT RESTING IN BED WITH EYES CLOSED. NO S/S OF ACUTE DISTRESS. NO C/O AT THIS TIME. PATIENT HAS IV IN LEFT AC NORMAL SALINE @ 100 ML/HR. IV IS PATENT WITHOUT REDNESS, SWELLING, OR TENDERNESS. PATIENT HAS SOME LEFT SIDED WEAKNESS, AND DROOPINESS IN THE FACE FROM OLD CVA. PATIENT IS RAW ON THE BUTTOCKS AND GROIN AREA. PATIENT IS INCONTINENT OF BOWEL AND BLADDER. PATIENT HAS PUREWICK IN PLACE. CALL LIGHT IN PLACE. WILL CONTINUE TO MONITOR.
[2019-04-24] VITALS: BP 105/34
[2019-04-24 04:00] VITALS: BP 104/50
--- NOTE | 2019-04-24 04:15 | NUR ---
I have reviewed this patient and I concur with the Shift Assessment completed by the Licensed Practical Nurse today this shift.
--- NOTE | 2019-04-24 07:04 | NUR ---
PT IS RESTING IN BED WITH EYES CLOSED RESPIRATIONS ARE EVEN AND UNLABORED. PT IS EASILY AROUSED WITH VERBAL STIMULATION. PT IS AAO X 4 AND IS ABLE TO ANSWER YES/NO QUESTIONS PT IS SLOW TO RESPOND. PT WITH SLIGHT LEFT SIDED WEAKNESS D/T HX OF CVA. PT IS ABLE TO ASSIST WITH REPOSITIONING. PT IS POSITIONED TO BACK AT THIS TIME. PT DENIES PRESENCE OF N/V/PAIN AT THIS TIME. PT WITHOUT APPARENT S/S OF DISTRESS NOTED AT THIS TIME. PUREWICK IN PLACE. FALL PRECAUTIONS ARE IN PLACE. BED IS IN THE LOWEST POSITION. CALL LIGHT AND BEDSIDE TABLE ARE WITHIN REACH. SIDE RAILS X 2. PT DENIES FURTHER NEEDS. WILL CONT TO MONITOR.
[2019-04-24 08:43] VITALS: BP 101/55
--- NOTE | 2019-04-24 09:12 | NUR ---
PT REPOSITIONED TO RIGHT SIDE. PILLOWS USED FOR SUPPORT. PIV TO LEFT AC INFUSING WITHOUT DIFFICULTY. BED IS IN THE LOWEST POSITION. CALL LIGHT AND BEDSIDE TABLE ARE WITHIN REACH. SIDE RAILS X 2. PT DENIES FURTHER NEEDS. WILL CONT TO MONITOR.
[2019-04-24 09:23] LABS: ANION GAP 16.9 mmol/L (8-16); CALCIUM 7.5 mg/dL (8.5-10.1); CARBON DIOXIDE 14.3 mmol/L (21.0-32.0); POTASSIUM - SERUM 5.2 mmol/L (3.5-5.1)
[2019-04-24 09:46] LABS: HEMATOCRIT 38.2 % (36.0-48.0); HEMOGLOBIN 12.2 g/dL (12-16); LYMPHOCYTES 10.8 % (15-50); MCH 30.7 pg (26.0-34.0); MCHC 31.9 g/dL (31.0-37.0); MEAN PLATELET VOLUME 8.6 fL (7.4-10.4); NEUTROPHILS 83.9 % (40-80); PLATELET COUNT 208 10x3/uL (130-400); RBC 3.98 10x6/uL (4.00-5.40); WBC 17.7 10x3/uL (4.8-10.8)
--- NOTE | 2019-04-24 11:16 | NUR ---
PT GLUCOSE IS 78. VANILLA PUDDING GIVEN WELL DRINKS OF ORANGE JUICE. WILL MONITOR.
--- NOTE | 2019-04-24 11:21 | NUR ---
PT REPOSITIONED TO LEFT SIDE. PILLOWS USED FOR SUPPORT. ALL FALL PRECAUTIONS ARE IN PLACE. BED IS IN THE LOWEST POSITION. CALL LIGHT AND BEDSIDE TABLE ARE WITHIN REACH. SIDE RAILS X 2. PT DENIES FURTHER NEEDS. WILL CONT TO MONITOR.
--- NOTE | 2019-04-24 11:25 | NUR ---
DR PEREZ AT BEDSIDE AND GIVES VERBAL PERMISSION TO ACCESS LEFT CHEST PORT. WILL OBTAIN ACCESS.
--- NOTE | 2019-04-24 12:09 | NUR ---
20G 0.75INCH NEEDLE USED TO ACCESS LEFT CHEST PORT. STERILE TECHNIQUE UTILIZED. BIO PATCH IN PLACE. DRESSING APPLIED. FALL PRECATUIONS ARE IN PLACE. BED IS IN THE LOWEST POSITION. CALL LIGHT AND BEDSIDE TABLE ARE WITHIN REACH. SIDE RAILS X 2. PT DENIES FURTHER NEEDS. FAMILY AT BEDSIDE. WILL CONT TO MONITOR.
[2019-04-24 12:12] VITALS: BP 98/55
--- NOTE | 2019-04-24 12:20 | NUR ---
ASSISTED PT WITH TRAY SET UP. ATTEMPTED TO HELP WITH FEEDING OF LUNCH TRAY. PT IS REFUSING ASSISTANCE AND REFUSING TO EAT. PT INFORMED OF BLOOD GLUCOSE AT LAST CHECK AND PT CONTINUES TO REFUSES TO EAT. WILL CONT TO MAKE ATTEMPTS TO GET PT TO EAT.
--- NOTE | 2019-04-24 12:33 | NUR ---
Nutrition follow-up: Pt receiving a renal pureed diet with Glucerna Shake TID Calorie count ordered; however, pt is eating and drinking very little at this time. Labs reviewed Wt: 150# Please get current wt to chart. Due to pt with poor po intake, recommend PEG tube placement and supplemental nutrition support started. Suspect pt with severe malnutrition of chronic illness; however, unable to confirm without a current wt. Please weigh pt. RDN following.
--- NOTE | 2019-04-24 13:05 | NUR ---
PT REPOSITIONED TO BACK. FALL PRECAUTIONS ARE IN PLACE. BED IS IN THE LOWEST POSITION. CALL LIGHT AND BEDSIDE TABLE ARE WITHIN REACH. SIDE RAILS X 2. PT DENIES FURTHER NEEDS. WILL CONT TO MONITOR.
--- NOTE | 2019-04-24 14:11 | MORECARE ---
CASE MANAGEMENT DISCHARGE SUMMARY PATIENT: AFSANEH STORM UNIT: [id number] ADM DATE: 04/13/19 AGE: 63 : 57 SEX: F ROOM/BED: D.2204 AUTHOR: CHRIS MATAMOROS PHYSICIAN: REFERRING PHYSICIAN: MAYA MORGAN MD DATE OF SERVICE: 04/24/19 Discharge Plan Patient Name: AFSANEH STORM Facility: [facility]:[place] : 1955 Planned Disposition: Home or Self Care Anticipated Discharge Date: Discharge Date: Expected LOS: Initial Reviewer: [email or web address] Initial Review Date: 04/13/2019 Generated: 04/24/19 3:10 pm Comments DCP- Discharge Planning Updated by [id number]: Erlinda Oakes on 04/24/19 12:[address] I CALLED [facility] IN [place] TO SEE IF THE PATIENT HAS SOME TYPE OF DENTAL COVERAGE. I ATTEMPTED TO CALL DR MONROY'S OFFICE ([phone]) BUT THEIR OFFICE IS ALREADY CLOSED. WILL TRY AGAIN ON SATURDAY. DCP- Discharge Planning Updated by [id number]: Erlinda Oakes on 04/17/19 1:[address] Patient Name: AFSANEH STORM Admission Status: Elective Accout number: [id number] Admission Date: 04-13-2019 : 1955 Admission Diagnosis:SEPSIS, UNSPECIFIED ORGANISM Attending: MAYA MORGAN Current LOS: 4 Anticipated DC Date: Planned Disposition: Home or Self Care Primary Insurance: [place]ICAID [place] Discharge Planning Comments: PATIENT IS APSASIC AND UNABLE TO ANSWER QUESTIONS, SHE LIVES AT HOME WITH HER SISTER AND BROTHER. SHE IS NOT ABLE TO CARE FOR HERSELF, SHE DOES HAVE [employer]PER[employer] RETIREMENT. LAST TIME SHE WAS AT THE HOSPITAL SHE WAS ENCOURAGED TO GO TO A FACILITY IF HER FAMILY COULD NOT CARE FOR HER. [employer] COMES 3 HOURS A DAY 7 DAYS A WEEK. YARITZA WILL BE THE WELDER GAS AUTOMAT[employer] HER NUMBER IS [phone] Regulatory Affairs Director: Erlinda Oakes DCPIA - Discharge Planning Initial Assessment Updated by [id number]: Erlinda Oakes on 04/17/19 2:26 pm * Is the patient Alert and Oriented? Yes * PCP EDVIN * [facility] * Preadmission Environment Home with Family * ADLs Total Dependent * Equipment Bedside Commode Rolling Walker Shower Chair Walker Wheelchair * List name and contact numbers for known caregivers / representatives who currently or will assist patient after discharge: YARITZA (SISTER) [phone] * Verbal permission to speak to the caregivers and representatives has been obtained from the patient. N/A * Community resources currently utilized [employer] * Please name any agencies selected above. [employer] * Additional services required to return to the preadmission environment? Yes * Has this patient been hospitalized within the prior 30 days at any hospital? No Last DP export: 04/17/19 1:35 p Patient Name: AFSANEH STORM Page [id number] at 1411 All edits/amendments must be made on the electronic document DICTATION DATE: 04/24/191409 GUIDANCE ADVISER: VIET 04/24/19 1410 RPT#: [id number] DC DATE: STATUS: ADM IN [facility] [address] [place] [address] END OF REPORT
--- NOTE | 2019-04-24 15:30 | NUR ---
PT REPOSITIONED TO RIGHT SIDE. PILLOWS USED FOR SUPPORT. FALL PRECAUTIONS IN PLACE. BED IS IN THE LOWEST POSITION. CALL LIGHT AND BEDSIDE TABLE ARE WITHIN REACH. SIDE RAILS X 2. WILL CONT TO MONITOR.
[2019-04-24 17:03] VITALS: BP 100/52
--- NOTE | 2019-04-24 17:09 | NUR ---
OT NOTE: (AM SESSION) PT COMPLETED UE AAROM EXS WITHIN AVAILABLE ROM TO DECREASE RISK OF SKIN BREAK DOWN. PT COMPLETED ORAL HYGIENE WITH MAX A. PT COMPLETED UB HYGIENE TASKS WITH FOR FACE AND HANDS WITH MAX A. (PM SESSION) PT COMPLETED UE AAROM TOLERATED AND POSITIONING TO DECREASE RISK OF SKIN BREAK DOWN. [phone] THANK YOU,WILMAN SIDHU
--- NOTE | 2019-04-24 17:30 | NUR ---
PT REPOSITIONED TO LEFT SIDE. PILLOWS USED FOR SUPPORT. PUREWICK IN PLACE. LEFT CHEST PORT INFUSING WITHOUT DIFFICULTY. FALL PRECAUTIONS ARE IN PLACE. PT WITHOUT APPARENT S/S OF DISTRESS NOTED. BED IS IN THE LOWEST POSITION. CALL LIGHT AND BEDSIDE TABLE ARE WITHIN REACH. SIDE RAILS X 2. PT DENIES FURTHER NEEDS. WILL CONT TO MONITOR.
--- NOTE | 2019-04-24 19:05 | NUR ---
ALERT AND ORIENTED. ANSWERS YES AND NO QUESTIONS. APHASIA NOTED. PATIENT HAS LEFT SIDED WEAKNESS. BED FAST. LEFT SIDED CHEST PORT THAT IS INFUSING NS @ 100. PUREWICK IN PLACE. BUTTOCKS EXCORIATION NOTED. BOUDREAUXS APPLIED. BED ALARM ON. CALL LIGHT IN REACH. CPOC.
--- NOTE | 2019-04-24 19:39 | NUR ---
PT REPOSITIONED TO BACK. PILLOWS USED FOR SUPPORT. PUREWICK IN PLACE. LEFT CHEST PORT INFUSING WITHOUT DIFFICULTY. FALL PRECAUTIONS ARE IN PLACE. PT WITHOUT APPARENT S/S OF DISTRESS NOTED. BED IS IN THE LOWEST POSITION. CALL LIGHT AND BEDSIDE TABLE ARE WITHIN REACH. SIDE RAILS X 2. PT DENIES FURTHER NEEDS. WILL CONT TO MONITOR.
[2019-04-24 20:26] VITALS: BP 100/49
--- NOTE | 2019-04-24 20:38 | NUR ---
MED PASS COMPLETED. ENCOURAGED PATIENT TO DRINK ENSURE. PATIENT DRANK ENTIRE ENSURE AND TOLERATED PO MEDS WELL. FSBS 75 PRIOR TO ENSURE.
--- NOTE | 2019-04-25 00:31 | NUR ---
LINEN CHANGE PROVIDED. REPOSITIONED PATIENT.
[2019-04-25 00:35] VITALS: BP 101/62
--- NOTE | 2019-04-25 03:18 | NUR ---
I have reviewed this patient and I concur with the Shift Assessment completed by the Licensed Practical Nurse today this shift.
[2019-04-25 04:55] VITALS: BP 100/59
[2019-04-25 05:04] LABS: HEMATOCRIT 35.1 % (36.0-48.0); HEMOGLOBIN 11.3 g/dL (12-16); MCH 30.6 pg (26.0-34.0); MCHC 32.2 g/dL (31.0-37.0); MCV 95.1 fL (80.0-100.0); MEAN PLATELET VOLUME 8.9 fL (7.4-10.4); PLATELET COUNT 297 10x3/uL (130-400); RBC 3.69 10x6/uL (4.00-5.40); RDW 19.1 % (11.5-14.5); WBC 23.7 10x3/uL (4.8-10.8)
[2019-04-25 05:25] LABS: ALBUMIN 0.9 g/dL (3.4-5.0); ANION GAP 17.1 mmol/L (8-16); BILIRUBIN - TOTAL 0.35 mg/dL (0.2-1.3); CALCIUM 7.8 mg/dL (8.5-10.1); CARBON DIOXIDE 14.2 mmol/L (21.0-32.0); CREATININE - SERUM 2.2 mg/dL (0.6-1.3); POTASSIUM - SERUM 5.3 mmol/L (3.5-5.1); PROTEIN - SERUM 6.6 g/dL (6.4-8.2)
[2019-04-25 05:44] LABS: LYMPHOCYTES 4 % (15-50); MONOCYTES 8 % (2-11); NEUTROPHILS 85 % (40-80); PLATELET ESTIMATE NORMAL
--- NOTE | 2019-04-25 07:10 | NUR ---
PT RESTING IN BED. NO SIGNS OF DISTRESS. IV TO LEFT CHEST PORT PATENT NO REDNESS RO TENDERNESS. BUTTOCKS IN RED. MEDICATION APPLIED. DENIES ANY FURTHER NEED AT THIS TIME. CALL LIGHT IN REACH. BED LOW POSITION. NO FAMILY AT BEDSIDE AT THIS TIME.
--- NOTE | 2019-04-25 14:00 | NUR ---
I have reviewed this patient and I concur with the Shift Assessment completed by the Licensed Practical Nurse today this shift.
[2019-04-25 14:24] VITALS: BP 93/52
[2019-04-25 16:56] VITALS: BP 83/43
[2019-04-25 20:00] VITALS: BP 105/58
--- NOTE | 2019-04-25 20:00 | NUR ---
PATIENT RESTING IN BED WITH EYES CLOSED. NO S/S OF DISTRESS. NO C/O AT THIS TIME. PATIENT HAS IV IN RIGHT AC SALINE LOC. PATIENT HAS INFUSAPORT IN LEFT CHEST. BOTH ARE PATENT WITHOUT REDNESS, SWELLING, OR TENDERNESS. PATIENT HAS PUREWICK IN PLACE AND IS INCONTINENT OF BOWEL. PATIENT IS WEAK AND BEDFAST. PATIENT HAS REDNESS AND EXCOREATION ON BUTTOCKS AND GROIN AREA. CALL LIGHT IN PLACE. WILL CONTINUE TO MONITOR.
[2019-04-26] VITALS (7 sets, daily range): BP systolic 83–117; BP diastolic 41–53
--- NOTE | 2019-04-26 03:00 | NUR ---
I have reviewed this patient and I concur with the Shift Assessment completed by the Licensed Practical Nurse today this shift.
[2019-04-26 06:41] LABS: BASOPHILS 0.1 % (0-2); EOSINOPHILS 0.2 % (0-7); HEMATOCRIT 31.4 % (36.0-48.0); IMMATURE GRANULOCYTES 0.8 % (0-5); LYMPHOCYTES 7.4 % (15-50); MCH 30.8 pg (26.0-34.0); MCHC 31.8 g/dL (31.0-37.0); MCV 96.6 fL (80.0-100.0); MONOCYTES 4.7 % (2-11); NEUTROPHILS 86.8 % (40-80); RBC 3.25 10x6/uL (4.00-5.40)
[2019-04-26 06:48] LABS: PLATELET COUNT 165 10x3/uL (130-400)
[2019-04-26 07:13] LABS: ALBUMIN 0.8 g/dL (3.4-5.0); ANION GAP 16.1 mmol/L (8-16); BILIRUBIN - TOTAL 0.33 mg/dL (0.2-1.3); CALCIUM 7.8 mg/dL (8.5-10.1); CARBON DIOXIDE 15.2 mmol/L (21.0-32.0); CREATININE - SERUM 2.3 mg/dL (0.6-1.3); POTASSIUM - SERUM 5.3 mmol/L (3.5-5.1); PROTEIN - SERUM 5.2 g/dL (6.4-8.2)
--- NOTE | 2019-04-26 11:38 | NUR ---
PATIENT VOMITED MORNING MEDICATION. PARTIAL BED BATH GIVEN. NISHA PLACED ON BOTTOM. BLADDER SCAN SHOWED 381 ML OF URINE IN BLADDER. JULIEN PLACED. URINE SPECIMEN COLLECTED AND SENT TO LAB. CL IN REACH. PATIENT TURNED TO RIGHT SIDE. WCTM
[2019-04-26 12:08] LABS: BILIRUBIN NEGATIVE (NEGATIVE); GLUCOSE NEGATIVE (NEGATIVE); KETONE NEGATIVE (NEGATIVE); NITRITE NEGATIVE (NEGATIVE); UROBILINOGEN NORMAL (NORMAL)
[2019-04-26 12:09] LABS: BACTERIA FEW /hpf (NEGATIVE); EPITHELIAL CELLS 0-5 /hpf (0-5); RED CELLS - URINE 0-5 /hpf (0-5)
--- NOTE | 2019-04-26 13:58 | NUR ---
400 REMOVED FROM JULIEN
--- NOTE | 2019-04-26 19:00 | NUR ---
BEDSIDE REPORT RECEIVED AND CARE OF PT ASSUMED. MYSELF AND DAY NURSE CHANGED PT DUE TO INCONTINENC OF STOOL. LEFT INFUSAPORT ACCESSED WITH LIQUID UNDER DRESSING DUE TO LEAKING. JULIEN CATHETER DRAINING TO GRAVITY WITH YELLOW URINE IN COLLECTION BAG. WILL MONITOR FOR NEEDS.
[2019-04-27] VITALS: BP 101/49
[2019-04-27 04:00] VITALS: BP 93/45
--- NOTE | 2019-04-27 04:30 | NUR ---
CHANGED ALL TUBING. REMOVED LEAKING JACOBS NEEDLE FROM LEFT INFUSAPORT AND RE-ACCESSED BY ERNESTINE GRANDA RN USING 20 GUAGE 1 INCH JACOBS NEEDLE. FLUSHES WELL. IV FLUIDS RE-STARTED.
[2019-04-27 04:52] LABS: BASOPHILS 0.1 % (0-2); EOSINOPHILS 0.3 % (0-7); HEMATOCRIT 30.3 % (36.0-48.0); HEMOGLOBIN 9.6 g/dL (12-16); IMMATURE GRANULOCYTES 0.8 % (0-5); LYMPHOCYTES 7.2 % (15-50); MCH 30.1 pg (26.0-34.0); MCHC 31.7 g/dL (31.0-37.0); MEAN PLATELET VOLUME 8.7 fL (7.4-10.4); MONOCYTES 4.7 % (2-11); NEUTROPHILS 86.9 % (40-80); PLATELET COUNT 164 10x3/uL (130-400); RBC 3.19 10x6/uL (4.00-5.40); RDW 19.1 % (11.5-14.5)
--- NOTE | 2019-04-27 05:21 | NUR ---
CHANGED BEDPADS DUE TO INCONTINENCE OF STOOL...PT HAS HAD X5 EPISODES OF INCONTINENT RUST CULORED LIQUID STOOLS TONIGHT.
[2019-04-27 05:22] LABS: ALBUMIN 0.7 g/dL (3.4-5.0); ANION GAP 14.8 mmol/L (8-16); BILIRUBIN - TOTAL 0.24 mg/dL (0.2-1.3); CALCIUM 7.8 mg/dL (8.5-10.1); CARBON DIOXIDE 16.2 mmol/L (21.0-32.0); CREATININE - SERUM 2.2 mg/dL (0.6-1.3); PROTEIN - SERUM 5.6 g/dL (6.4-8.2)
--- NOTE | 2019-04-27 08:34 | NUR ---
PATIENT LAYING ON RIGHT SIDE. ASKED YES/NO QUESTION IF SHE WAS GOING TO EAT. SHE SAID NO. ASKED IF SHE FELT LIKE SHE WAS GOING TO THROW UP. SHE STATED YES. WILL GIVE ZOFRAN. CL IN REACH. WCTM
[2019-04-27 08:56] VITALS: BP 90/49
--- NOTE | 2019-04-27 10:28 | NUR ---
PATIENT CHANGED AND TURNED TO RIGHT SIDE. BM WAS RUNNY AND RUST COLORED. CL IN REACH. NO FURTHER NEEDS AT THIS TIME. WCTM
[2019-04-27 13:24] VITALS: BP 97/51
--- NOTE | 2019-04-27 15:24 | NUR ---
SISTER LEFT A NUMBER FOR ME TO CALL. QUESTIONS ASKED AND ANSWERED. SISTER STATED THAT "SHE DIDN'T KNOW IF HER SISTER STILL HAD CANCER OR NOT THAT SHE QUIT THAT HERSELF." THAT THEY WERE THINKING ABOUT PUTTING HER IN A RETIREMENT. DOESN'T REALLY WANT TO PUT HER IN A RETIREMENT BUT SHE CAN'T TAKE CARE OF HER. THAT SHE WANTS HER ONLY IN THERE 6 MONTHS SO SHE CAN GET TO WHERE SHE CAN TAKE CARE OF HERSELF. [facility] OVER [facility] STATED SHE COULD BE THERE 6 MONTHS. HASN'T REALLY TALKED TO US ABOUT THAT. THAT SHE HAS PROBLEMS HERSELF AND BEST TO PUT HER IN A RETIREMENT.
[2019-04-27 17:28] VITALS: BP 89/54
--- NOTE | 2019-04-27 19:00 | NUR ---
BEDSIDE REPORT RECEIVED AND CARE OF PT ASSUMED. PT LYING IN SUPINE POSITION WITH EYES CLOSED. NO IV AT THIS TIME. JULIEN CATHETER DRAINING TO GRAVITY WITH YELLOW URINE IN COLLECTION BAG. WILL MONITOR FOR NEEDS.
--- NOTE | 2019-04-27 19:54 | NUR ---
OT NOTE: PT COMPLETED POSITIONING WITH MAX A FOR DECREASED RISK OF SKIN BREAKDOWN. PT COMPLETED ORAL HYGIENE TASKS WITH MAX A. PT COMPLETED FACE WASH WITH MOD A WHILE SUPINE IN BED. PT IS LETHARGIC . [phone] THANK YOU,WILMAN SIDHU
[2019-04-27 20:00] VITALS: BP 118/57
--- NOTE | 2019-04-27 21:28 | NUR ---
HS MEDICATIONS GIVEN. WILL CONTINUE TO MONITOR FOR NEEDS.
--- NOTE | 2019-04-27 23:30 | NUR ---
PT HAD INCONTINENT STOOL WITH SOME HANNAH BLOOD. NOTIFIED CEDRICK MCGHEE APN...WILL CONTINUE TO MONITOR AND CHECK AM LABS.
[2019-04-28] VITALS: BP 105/55
[2019-04-28 04:00] VITALS: BP 130/60
[2019-04-28 06:37] LABS: HEMATOCRIT 29.3 % (36.0-48.0); HEMOGLOBIN 9.5 g/dL (12-16); MCH 30.7 pg (26.0-34.0); MCHC 32.4 g/dL (31.0-37.0); MCV 94.8 fL (80.0-100.0); MEAN PLATELET VOLUME 8.5 fL (7.4-10.4); PLATELET COUNT 215 10x3/uL (130-400); RBC 3.09 10x6/uL (4.00-5.40); RDW 19.6 % (11.5-14.5); WBC 21.2 10x3/uL (4.8-10.8)
[2019-04-28 07:16] LABS: ALBUMIN 0.7 g/dL (3.4-5.0); ANION GAP 13.1 mmol/L (8-16); BILIRUBIN - TOTAL 0.27 mg/dL (0.2-1.3); CALCIUM 7.9 mg/dL (8.5-10.1); CARBON DIOXIDE 18.9 mmol/L (21.0-32.0); CREATININE - SERUM 1.7 mg/dL (0.6-1.3); PROTEIN - SERUM 5.3 g/dL (6.4-8.2)
[2019-04-28 09:22] LABS: EOSINOPHILS 2 % (0-7); LYMPHOCYTES 15 % (15-50); MONOCYTES 9 % (2-11); NEUTROPHILS 72 % (40-80); ROULEAUX OCC
[2019-04-28 09:23] LABS: ANISOCYTOSIS OCC; PLATELET ESTIMATE NORMAL
--- NOTE | 2019-04-28 09:33 | NUR ---
PT NOT VERY VERBAL. WILL ONLY ANSWER YES AND NO QUESTIONS. EXPIRATORY WHEEZES TO UPPER LOBES. BOWEL SOUNDS HYPO X 4. NO IV ACCESS AT THIS TIME. JASMYNE AREA AND BUTTOCKS EXCORIATED. BED LOW, CALL LIGHT IN REACH. NO OTHER NEEDS AT THIS TIME.
--- NOTE | 2019-04-28 09:44 | NUR ---
PT ALERT X 4. BREATH SOUNDS CLEAR BILAT. ABDOMEN FIRM. IV TO RIGHT WRIST, PATENT, DRESSING CDI. PT REPORTING HEADACHE, PAIN OF 6/10, PT REPORTS RELATED TO HEART RATE, MEDICATED PER ORDERS, WILL MONITOR. BED LOW, CALL LIGHT IN REACH. NO OTHER NEEDS AT THIS TIME.
[2019-04-28 10:07] VITALS: BP 106/68
[2019-04-28 14:39] VITALS: BP 98/53
[2019-04-28 17:13] LABS: BILIRUBIN NEGATIVE (NEGATIVE); GLUCOSE NEGATIVE (NEGATIVE); KETONE NEGATIVE (NEGATIVE); NITRITE NEGATIVE (NEGATIVE); UROBILINOGEN NORMAL (NORMAL)
[2019-04-28 17:14] LABS: BACTERIA FEW /hpf (NEGATIVE); EPITHELIAL CELLS 0-5 /hpf (0-5); RED CELLS - URINE OCC /hpf (0-5); YEAST >1+ WITH HYPHAE /hpf (NONE SEEN)
--- NOTE | 2019-04-28 19:00 | NUR ---
BEDSIDE REPORT RECEIVED AND CARE OF PT ASSUMED. PT BEING CHANGED AT THIS TIME BY SAP CONSULTANT'S DUE TO INCONTINENCE OF BOWEL...LOOSE RUST COLORED STOOL. JULIEN CATHETER DRAINING TO GRAVITY WITH YELLOW URINE IN COLLECTION BAG. WILL MONITOR FOR NEEDS.
[2019-04-28 21:28] VITALS: BP 87/41
[2019-04-29 01:59] VITALS: BP 101/50
[2019-04-29 04:39] LABS: BASOPHILS 0.1 % (0-2); EOSINOPHILS 0.4 % (0-7); HEMATOCRIT 27.8 % (36.0-48.0); HEMOGLOBIN 8.9 g/dL (12-16); LYMPHOCYTES 11.1 % (15-50); MCH 30.8 pg (26.0-34.0); MCV 96.2 fL (80.0-100.0); MEAN PLATELET VOLUME 8.7 fL (7.4-10.4); MONOCYTES 7.4 % (2-11); PLATELET COUNT 208 10x3/uL (130-400); RBC 2.89 10x6/uL (4.00-5.40); RDW 19.7 % (11.5-14.5); WBC 13.4 10x3/uL (4.8-10.8)
[2019-04-29 04:56] LABS: ALBUMIN 0.6 g/dL (3.4-5.0); ANION GAP 15.8 mmol/L (8-16); BILIRUBIN - TOTAL 0.25 mg/dL (0.2-1.3); CALCIUM 7.7 mg/dL (8.5-10.1); CARBON DIOXIDE 18.1 mmol/L (21.0-32.0); CREATININE - SERUM 1.6 mg/dL (0.6-1.3); POTASSIUM - SERUM 4.9 mmol/L (3.5-5.1); PROTEIN - SERUM 5.1 g/dL (6.4-8.2)
[2019-04-29 06:04] VITALS: BP 110/55
[2019-04-29 08:00] VITALS: BP 110/61
[2019-04-29 12:00] VITALS: BP 111/53
--- NOTE | 2019-04-29 13:24 | MORECARE ---
CASE MANAGEMENT DISCHARGE SUMMARY PATIENT: AFSANEH STORM UNIT: [id number] ADM DATE: 04/13/19 AGE: 63 : 57 SEX: F ROOM/BED: D.2204 AUTHOR: SATURNINODOC PHYSICIAN: REFERRING PHYSICIAN: MAYA MORGAN MD DATE OF SERVICE: 04/29/19 Discharge Plan Patient Name: AFSANEH STORM Facility: [facility]:[place] : 1955 Planned Disposition: Home or Self Care Anticipated Discharge Date: Discharge Date: Expected LOS: Initial Reviewer: [email or web address] Initial Review Date: 04/13/2019 Generated: 04/29/19 2:23 pm Comments DCP- Discharge Planning Updated by [id number]: Erlinda Oakes on 04/29/19 12:[address] SPOKE WITH SISTER YARITZA, SHE IS ON HER WAY UP TO THE HOSPITAL AND WILL SPEAK TO ME WHEN SHE GETS HERE DCP- Discharge Planning Updated by [id number]: Erlinda Oakes on 04/24/19 11:[address] I CALLED [facility] IN [place] TO SEE IF THE PATIENT HAS SOME TYPE OF DENTAL COVERAGE. I ATTEMPTED TO CALL DR MONROY'S OFFICE ([phone]) BUT THEIR OFFICE IS ALREADY CLOSED. WILL TRY AGAIN ON SATURDAY. DCP- Discharge Planning Updated by [email or web address]: Erlinda Oakes on 04/17/19 12:[address] Patient Name: AFSANEH STORM Admission Status: Elective Accout number: [id number] Admission Date: 04-13-2019 : 1955 Admission Diagnosis:SEPSIS, UNSPECIFIED ORGANISM Attending: MAYA MORGAN Current LOS: 4 Anticipated DC Date: Planned Disposition: Home or Self Care Primary Insurance: MEDICAID [place] Discharge Planning Comments: PATIENT IS APSASIC AND UNABLE TO ANSWER QUESTIONS, SHE LIVES AT HOME WITH HER SISTER AND BROTHER. SHE IS NOT ABLE TO CARE FOR HERSELF, SHE DOES HAVE [employer]FW[employer]. LAST TIME SHE WAS AT THE HOSPITAL SHE WAS ENCOURAGED TO GO TO A FACILITY IF HER FAMILY COULD NOT CARE FOR HER. [employer] COMES 3 HOURS A DAY 7 DAYS A WEEK. YARITZA WILL BE THE WIRE STRAIGHTENING MACHINE OPERATOR HER NUMBER IS [phone] Draw End Hand: Erlinda Oakes DCPIA - Discharge Planning Initial Assessment Updated by [id number]: Erlinda Oakes on 04/17/19 2:26 pm * Is the patient Alert and Oriented? Yes * PCP EDVIN * [facility]acy [facility] * Preadmission Environment Home with Family * ADLs Total Dependent * Equipment Bedside Commode Rolling Walker Shower Chair Walker Wheelchair * List name and contact numbers for known caregivers / representatives who currently or will assist patient after discharge: YARITZA (SISTER) [phone] * Verbal permission to speak to the caregivers and representatives has been obtained from the patient. N/A * Community resources currently utilized [employer] * Please name any agencies selected above. [employer] * Additional services required to return to the preadmission environment? Yes * Has this patient been hospitalized within the prior 30 days at any hospital? No Last DP export: 04/24/19 12:11 pm Patient Name: AFSANEH STORM Page [id number] at 1324 All edits/amendments must be made on the electronic document DICTATION DATE: 04/29/19 1323 DESKTOP ARCHITECT: VIET 04/29/19 1323 RPT#: [id number] [place] DATE: STATUS: ADM IN [facility] [address] [place] [address] END OF REPORT
--- NOTE | 2019-04-29 15:33 | MORECARE ---
CASE MANAGEMENT DISCHARGE SUMMARY PATIENT: AFSANEH STORM UNIT: [id number] ADM DATE: 04/13/19 AGE: 63 : 57 SEX: F ROOM/BED: D.2204 AUTHOR: SATURNINODOC PHYSICIAN: REFERRING PHYSICIAN: MAYA MORGAN MD DATE OF SERVICE: 04/29/19 Discharge Plan Patient Name: AFSANEH STORM Facility: [facility]:[place] : 1955 Planned Disposition: Home or Self Care Anticipated Discharge Date: Discharge Date: Expected LOS: Initial Reviewer: [id number] Initial Review Date: 04/13/2019 Generated: 04/29/19 4:33 pm Comments DCP- Discharge Planning Updated by [email or web address]: Erlinda Oakes on 04/29/19 12:[address] SPOKE WITH SISTER YARITZA, SHE IS ON HER WAY UP TO THE HOSPITAL AND WILL SPEAK TO ME WHEN SHE GETS HERE DCP- Discharge Planning Updated by [email or web address]: Erlinda Oakes on 04/24/19 11:[address] I CALLED PADMA IN [employer] TO SEE IF THE PATIENT HAS SOME TYPE OF DENTAL COVERAGE. I ATTEMPTED TO CALL DR MONROY'S OFFICE ([phone]) BUT THEIR OFFICE IS ALREADY CLOSED. WILL TRY AGAIN ON SATURDAY. DCP- Discharge Planning Updated by [email or web address]: Erlinda Oakes on 04/17/19 12:[address] Patient Name: AFSANEH STORM Admission Status: Elective Accout number: [id number] Admission Date: 04-13-2019 : 1955 Admission Diagnosis:SEPSIS, UNSPECIFIED ORGANISM Attending: MAYA MORGAN Current LOS: 4 Anticipated DC Date: Planned Disposition: Home or Self Care Primary Insurance: MEDICAID [place] Discharge Planning Comments: PATIENT IS APSASIC AND UNABLE TO ANSWER QUESTIONS, SHE LIVES AT HOME WITH HER SISTER AND BROTHER. SHE IS NOT ABLE TO CARE FOR HERSELF, SHE DOES HAVE [facility]. LAST TIME SHE WAS AT THE HOSPITAL SHE WAS ENCOURAGED TO GO TO A FACILITY IF HER FAMILY COULD NOT CARE FOR HER. [facility] COMES 3 HOURS A DAY 7 DAYS A WEEK. YARITZA WILL BE THE ELECTRONICS HARDWARE DESIGN ENGINEER HER NUMBER IS [phone] Web Press Operator: Erlinda Oakes DCPIA - Discharge Planning Initial Assessment Updated by [email or web address]: Erlinda Oakes on 04/17/19 2:26 pm * Is the patient Alert and Oriented? Yes * PCP EDVIN * Pharmacy [facility] * Preadmission Environment Home with Family * ADLs Total Dependent * Equipment Bedside Commode Rolling Walker Shower Chair Walker Wheelchair * List name and contact numbers for known caregivers / representatives who currently or will assist patient after discharge: YARITZA (SISTER) [phone] * Verbal permission to speak to the caregivers and representatives has been obtained from the patient. N/A * Community resources currently utilized [employer] * Please name any agencies selected above. [facility] * Additional services required to return to the preadmission environment? Yes * Has this patient been hospitalized within the prior 30 days at any hospital? No External Providers External Provider: [facility] Next Contact Date: Service Request Date: Service Type: Resolution: Reviewer: Comments: Last DP export: 04/29/19 12:24 p Patient Name: AFSANEH STORM Page [id number] at 1533 All edits/amendments must be made on the electronic document DICTATION DATE: 04/29/191532 TRADE FACILITATOR: VIET 04/29/191532 RPT#: [id number] DC DATE: STATUS: ADM IN [facility] [address] [place] [address] END OF REPORT
--- NOTE | 2019-04-29 15:41 | MORECARE ---
CASE MANAGEMENT DISCHARGE SUMMARY PATIENT: AFSANEH STORM UNIT: [id number] ADM DATE: 04/13/19 AGE: 63 : 57 SEX: F ROOM/BED: D.2204 AUTHOR: CHRIS MATAMOROS PHYSICIAN: REFERRING PHYSICIAN: MAYA MORGAN MD DATE OF SERVICE: 04/29/19 Discharge Plan Patient Name: AFSANEH STORM Facility: [facility]:[place] : 1955 Planned Disposition: Home or Self Care Anticipated Discharge Date: Discharge Date: Expected LOS: Initial Reviewer: [id number] Initial Review Date: 04/13/2019 Generated: 04/29/19 4:41 pm Comments DCP- Discharge Planning Updated by [email or web address]: Erlinda Oakes on 04/29/19 2:[address] SPOKE WITH SISTER AND AFTER DR MORGAN SPOKE WITH PATIENT AND FAMILY THEY HAVE DECIDED TO GO WITH [facility]. REFERRAL SENT, I SPOKE WITH RANDY BOWENS. VILMA SIGNED BY HER SISTER. CM TO FOLLOW AND ASSIST NEEDED DCP- Discharge Planning Updated by [id number]: Erlinda Oakes on 04/29/19 12:[address] SPOKE WITH SISTER YARITZA, SHE IS ON HER WAY UP TO THE HOSPITAL AND WILL SPEAK TO ME WHEN SHE GETS HERE DCP- Discharge Planning Updated by [email or web address]: Erlinda Oakes on 04/24/19 11:[address] I CALLED PADMA IN [employer] TO SEE IF THE PATIENT HAS SOME TYPE OF DENTAL COVERAGE. I ATTEMPTED TO CALL DR MONROY'S OFFICE ([phone]) BUT THEIR OFFICE IS ALREADY CLOSED. WILL TRY AGAIN ON SATURDAY. DCP- Discharge Planning Updated by [email or web address]: Erlinda Oakes on 04/17/19 12:[address] Patient Name: AFSANEH STORM Admission Status: Elective Accout number: [id number] Admission Date: 04-13-2019 : 1955 Admission Diagnosis:SEPSIS, UNSPECIFIED ORGANISM Attending: MAYA MORGAN Current LOS: 4 Anticipated DC Date: Planned Disposition: Home or Self Care Primary Insurance: MEDICAID [place] Discharge Planning Comments: PATIENT IS APSASIC AND UNABLE TO ANSWER QUESTIONS, SHE LIVES AT HOME WITH HER SISTER AND BROTHER. SHE IS NOT ABLE TO CARE FOR HERSELF, SHE DOES HAVE [facility]. LAST TIME SHE WAS AT THE HOSPITAL SHE WAS ENCOURAGED TO GO TO A FACILITY IF HER FAMILY COULD NOT CARE FOR HER. [facility] COMES 3 HOURS A DAY 7 DAYS A WEEK. YARITZA WILL BE THE MUSHROOM GROWER HER NUMBER IS [phone] Greenhouse Grower: Erlinda Oakes DCPIA - Discharge Planning Initial Assessment Updated by [email or web address]: Erlinda Oakes on 04/17/19 2:26 pm * Is the patient Alert and Oriented? Yes * PCP EDVIN * Pharmacy [facility] * Preadmission Environment Home with Family * ADLs Total Dependent * Equipment Bedside Commode Rolling Walker Shower Chair Walker Wheelchair * List name and contact numbers for known caregivers / representatives who currently or will assist patient after discharge: YARITZA (SISTER) [phone] * Verbal permission to speak to the caregivers and representatives has been obtained from the patient. N/A * Community resources currently utilized [employer] * Please name any agencies selected above. [facility] * Additional services required to return to the preadmission environment? Yes * Has this patient been hospitalized within the prior 30 days at any hospital? No Coverage Notice Reviewer: [id number] - Erlinda Oakes Notice Issued Date-Time: 04/29/2019 13:45 Notice Type: Patient Choice Letter Notice Delivered To: Family Member Relationship to Patient: Sister Claims Coordinator Name: YARITZA COWAN Delivery Method: HAND - Hand Delivered Lou Days: Prior Verbal Notification: Recipient Understood Notice: Yes Recipient Signature: Yes Med Rec Note Co-signed by Attending: Coverage Notice Comment: VILMA WITH [facility] Last DP export: 04/29/19 2:33 p Patient Name: AFSANEH STORM Page [id number] at 1541 All edits/amendments must be made on the electronic document DICTATION DATE: 04/29/191540 AIR TUCKER: VIET 04/29/191540 RPT#: [id number] DC DATE: STATUS: ADM IN [facility] [address] [place] [address] END OF REPORT
[2019-04-29 17:09] VITALS: BP 101/56
--- NOTE | 2019-04-29 19:35 | NUR ---
SITTING UP IN BED EATING PUREED DIET. APHASIC. ANSWERS SOME QUESTIONS. RESP EVEN AND NONLABORED. INCONT OF BOWELS. JULIEN CATH PATENT AND DRAINING CLEAR YELLOW URINE. BRUISES NOTED TO BUE. NO IV ACCESS. HAS INFUSAPORT THAT IS NOT ACCESSED. EDEMA NOTED TO BLE. BED ALARM ON FOR PT SAFETY. SR ELEVATED X2. CL IN REACH. NO DISTRESS.
[2019-04-29 21:09] VITALS: BP 110/43
[2019-04-30 01:29] VITALS: BP 106/52
--- NOTE | 2019-04-30 01:58 | NUR ---
RESTING IN BED WITH EYES CLOSED. RESP EVEN AND NONLABORED. NO DISTRESS. BED ALARM ON. CL IN REACH.
[2019-04-30 05:53] VITALS: BP 113/54
[2019-04-30 07:06] LABS: ANION GAP 10.3 mmol/L (8-16); BASOPHILS 0.2 % (0-2); CALCIUM 8.3 mg/dL (8.5-10.1); CARBON DIOXIDE 22.4 mmol/L (21.0-32.0); CREATININE - SERUM 1.4 mg/dL (0.6-1.3); EOSINOPHILS 0.7 % (0-7); HEMATOCRIT 27.8 % (36.0-48.0); HEMOGLOBIN 8.8 g/dL (12-16); IMMATURE GRANULOCYTES 1.2 % (0-5); MCH 30.8 pg (26.0-34.0); MCHC 31.7 g/dL (31.0-37.0); MCV 97.2 fL (80.0-100.0); MEAN PLATELET VOLUME 8.3 fL (7.4-10.4); MONOCYTES 7.3 % (2-11); NEUTROPHILS 78.6 % (40-80); PLATELET COUNT 218 10x3/uL (130-400); POTASSIUM - SERUM 4.7 mmol/L (3.5-5.1); RBC 2.86 10x6/uL (4.00-5.40); RDW 19.5 % (11.5-14.5); WBC 13.3 10x3/uL (4.8-10.8)
[2019-04-30 08:11] VITALS: BP 117/62
[2019-04-30 08:30] VITALS: BP 126/53
--- NOTE | 2019-04-30 08:38 | NUR ---
AWAKE THIS MORNING. TOOK HER PILLS WITHOUT ANY PROBLEMS. PULLING HER ARM ON THE BED RAIL, I THINK SHE WANTS IT DOWN. SIDE RAILS UP TIMES 2, BED ALARM IS ON.
[2019-04-30] MEDS ORDERED: MEGACE400 MG/10 PO (12:14)
[2019-04-30] MEDS ORDERED: TAPAZOLE 5 MG TA5 MG PO ×2 (12:14→12:16)
--- NOTE | 2019-04-30 12:58 | MORECARE ---
CASE MANAGEMENT DISCHARGE SUMMARY PATIENT: AFSANEH STORM UNIT: [id number] ADM DATE: 04/13/19 AGE: 63 : 57 SEX: F ROOM/BED: D.2204 AUTHOR: SATURNINO,DOC PHYSICIAN: REFERRING PHYSICIAN: MAYA MORGAN MD DATE OF SERVICE: 04/30/19 Discharge Plan Patient Name: AFSANEH STORM Facility: [facility]:[place] : 1955 Planned Disposition: Home or Self Care Anticipated Discharge Date: Discharge Date: Expected LOS: Initial Reviewer: [id number] Initial Review Date: 04/13/2019 Generated: 04/30/19 1:57 pm Comments DCP- Discharge Planning Updated by [email or web address]: Erlinda Oakes on 04/30/19 11:[address] PATIENT WILL BE DISCHARGING HOME TO HOSPICE WITH [facility]. HER FAMILY IS AT HOME SETTING UP DME. CM TO FOLLOW AND ASSIST NEEDED DCP- Discharge Planning Updated by [id number]: Erlinda Oakes on 04/29/19 2:[address] SPOKE WITH SISTER AND AFTER DR MORGAN SPOKE WITH PATIENT AND FAMILY [facility]FERRAL SENT, I SPOKE WITH RANDY BOWENS. VILMA SIGNED BY HER SISTER. CM TO FOLLOW AND ASSIST NEEDED DCP- Discharge Planning Updated by [id number]: Erlinda Oakes on 04/29/19 12:[address] SPOKE WITH SISTER YARITZA, SHE IS ON HER WAY UP TO THE HOSPITAL AND WILL SPEAK TO ME WHEN SHE GETS HERE DCP- Discharge Planning Updated by [id number]: Erlinda Oakes on 04/24/19 11:[address] I CALLED PADMA IN [employer] TO SEE IF THE PATIENT HAS SOME TYPE OF DENTAL COVERAGE. I ATTEMPTED TO CALL DR MONROY'S OFFICE ([phone]) BUT THEIR OFFICE IS ALREADY CLOSED. WILL TRY AGAIN ON SATURDAY. DCP- Discharge Planning Updated by [id number]: Erlinda Oakes on 04/17/19 12:[address] Patient Name: AFSANEH STORM Admission Status: Elective Accout number: [id number] Admission Date: 04-13-2019 : 1955 Admission Diagnosis:SEPSIS, UNSPECIFIED ORGANISM Attending: MAYA MORGAN Current LOS: 4 Anticipated DC Date: Planned Disposition: Home or Self Care Primary Insurance: MEDICAID [place] Discharge Planning Comments: PATIENT IS APSASIC AND UNABLE TO ANSWER QUESTIONS, SHE LIVES AT HOME WITH HER SISTER AND BROTHER. SHE IS NOT ABLE TO CARE FOR HERSELF, SHE DOES HAVE [facility]. LAST TIME SHE WAS AT THE HOSPITAL SHE WAS ENCOURAGED TO GO TO A FACILITY IF HER FAMILY COULD NOT CARE FOR HER. [facility] COMES 3 HOURS A DAY 7 DAYS A WEEK. YARITZA WILL BE THE NETWORK DEVELOPER HER NUMBER IS [phone] Plate Maker Zinc: Erlinda Oakes DCPIA - Discharge Planning Initial Assessment Updated by [id number]: Erlinda Oakes on 04/17/19 2:26 pm * Is the patient Alert and Oriented? Yes * PCP EDVIN * Pharmacy [facility] * Preadmission Environment Home with Family * ADLs Total Dependent * Equipment Bedside Commode Rolling Walker Shower Chair Walker Wheelchair * List name and contact numbers for known caregivers / representatives who currently or will assist patient after discharge: YARITZA (SISTER) [phone] * Verbal permission to speak to the caregivers and representatives has been obtained from the patient. N/A * Community resources currently utilized [employer] * Please name any agencies selected above. [facility] * Additional services required to return to the preadmission environment? Yes * Has this patient been hospitalized within the prior 30 days at any hospital? No Coverage Notice Reviewer: [id number] - Erlinda Oakes Notice Issued Date-Time: 04/29/2019 13:45 Notice Type: Patient Choice Letter Notice Delivered To: Family Member Relationship to Patient: Sister Department Head Name: YARITZA COWAN Delivery Method: HAND - Hand Delivered Lou Days: Prior Verbal Notification: Recipient Understood Notice: Yes Recipient Signature: Yes Med Rec Note Co-signed by Attending: Coverage Notice Comment: [facility] WITH [facility] Last DP export: 04/29/19 2:41 p Patient Name: AFSANEH STORM Page 68165 at 1258 All edits/amendments must be made on the electronic document DICTATION DATE: 04/30/19 1257 TRAFFIC OPERATIONS MANAGER: VIET 04/30/19 1257 RPT#: [id number] DC DATE: STATUS: ADM IN [facility] [address] [place] [address] END OF REPORT
[2019-04-30 13:52] VITALS: BP 92/54
--- NOTE | 2019-04-30 17:18 | NUR ---
DISCHARGE PAPERWORK EXPLAINED TO PATIENT. CALLED JAIR AT THE HOSPICE CARE TO LET HER KNOW THE PATIENT HAD LEFT VIA AMBULANCE. THE PATIENT DID NOT HAVE AN IV. SHE DID LEAVE WITH A JULIEN.
--- NOTE | 2019-05-02 09:46 | MORECARE ---
CASE MANAGEMENT DISCHARGE SUMMARY PATIENT: AFSANEH STORM UNIT: [id number] ADM DATE: 04/13/19 AGE: 63 : 57 SEX: F ROOM/BED: D.2204 AUTHOR: SATURNINO,DOC PHYSICIAN: REFERRING PHYSICIAN: MAYA MORGAN MD DATE OF SERVICE: 05/02/19 Discharge Plan Patient Name: AFSANEH STORM Facility: [facility]:[place] : 1955 Planned Disposition: Home or Self Care Anticipated Discharge Date: Discharge Date: 04/30/2019 Expected LOS: Initial Reviewer: [id number] Initial Review Date: 04/13/2019 Generated: 05/02/19 10:45 am Comments DCP- Discharge Planning Updated by [id number]: Erlinda Oakes on 04/30/19 11:[address] PATIENT WILL BE DISCHARGING HOME TO HOSPICE WITH [facility]. HER FAMILY IS AT HOME SETTING UP DME. CM TO FOLLOW AND ASSIST NEEDED DCP- Discharge Planning Updated by [email or web address]: Erlinda Oakes on 04/29/19 2:[address] SPOKE WITH SISTER AND AFTER DR MORGAN SPOKE WITH PATIENT AND FAMILY THEY [facility] DECIDED [facility]. REFERRAL SENT, I SPOKE WITH RANDY BOWENS. VILMA SIGNED BY HER SISTER. CM TO FOLLOW AND ASSIST NEEDED DCP- Discharge Planning Updated by [email or web address]: Erlinda Oakes on 04/29/19 12:[address] SPOKE WITH SISTER YARITZA, SHE IS ON HER WAY UP TO THE HOSPITAL AND WILL SPEAK TO ME WHEN SHE GETS HERE DCP- Discharge Planning Updated by [id number]: Erlinda Oakes on 04/24/19 11:[address] I CALLED PADMA IN [address] TO SEE IF THE PATIENT HAS SOME TYPE OF DENTAL COVERAGE. I ATTEMPTED TO CALL DR MONROY'S OFFICE ([phone]) BUT THEIR OFFICE IS ALREADY CLOSED. WILL TRY AGAIN ON SATURDAY. DCP- Discharge Planning Updated by [id number]: Erlinda Oakes on 04/17/19 12:[address] Patient Name: AFSANEH STORM Admission Status: Elective Accout number: [id number] Admission Date: 04-13-2019 : 1955 Admission Diagnosis:SEPSIS, UNSPECIFIED ORGANISM Attending: MAYA MORGAN Current LOS: 4 Anticipated DC Date: Planned Disposition: Home or Self Care Primary Insurance: MEDICAID [place] Discharge Planning Comments: PATIENT IS APSASIC AND UNABLE TO ANSWER QUESTIONS, SHE LIVES AT HOME WITH HER SISTER AND BROTHER. SHE IS NOT ABLE TO CARE FOR HERSELF, SHE DOES HAVE [facility]. LAST TIME SHE WAS AT THE HOSPITAL SHE WAS ENCOURAGED TO GO TO A FACILITY IF HER FAMILY COULD NOT CARE FOR HER. [facility] COMES 3 HOURS A DAY 7 DAYS A WEEK. YARITZA WILL BE THE PANEL ASSEMBLER HER NUMBER IS [phone] Inspector Motor Vehicles: Erlinda Oakes DCPIA - Discharge Planning Initial Assessment Updated by [id number]: Erlinda Oakes on 04/17/19 2:26 pm * Is the patient Alert and Oriented? Yes * PCP EDVIN * Pharmacy [facility] * Preadmission Environment Home with Family * ADLs Total Dependent * Equipment Bedside Commode Rolling Walker Shower Chair Walker Wheelchair * List name and contact numbers for known caregivers / representatives who currently or will assist patient after discharge: YARITZA (SISTER) [phone] * Verbal permission to speak to the caregivers and representatives has been obtained from the patient. N/A * Community resources currently utilized [employer] * Please name any agencies selected above. [facility] * Additional services required to return to the preadmission environment? Yes * Has this patient been hospitalized within the prior 30 days at any hospital? No Coverage Notice Reviewer: [id number] - Erlinda Oakes Notice Issued Date-Time: 04/29/2019 13:45 Notice Type: Patient Choice Letter Notice Delivered To: Family Member Relationship to Patient: Sister Vegetable Picker Name: YARITZA COWAN Delivery Method: HAND - Hand Delivered Lou Days: Prior Verbal Notification: Recipient Understood Notice: Yes Recipient Signature: Yes Med Rec Note Co-signed by Attending: Coverage Notice Comment: VILMA WITH [facility] Last DP export: 04/30/19 11:58 a Patient Name: AFSANEH STORM Page 53340 at 0946 All edits/amendments must be made on the electronic document DICTATION DATE: 05/02/1945 SPICE GRINDER: DM 05/02/1944 RPT#: [id number] DC DATE:04/30/19 STATUS: DIS IN [facility] [address] [place] [address] END OF REPORT
== END 2019-04-30 17:19 | disposition home health service (06) | DRG 871 ==
LOC: D.ER 11:06 → D.MS 13:40
PROVIDERS: Emergency Medicine; Family Medicine; ADMIT Internal Medicine Nephrology; ATTEND Internal Medicine Nephrology
DX: A41.51 Sepsis due to Escherichia coli [E. coli] (principal); E43 Unspecified severe protein-calorie malnutrition; G93.41 Metabolic encephalopathy; R40.2214 Coma scale, best verbal response, none, 24 hours or more after hospital admission; E87.0 Hyperosmolality and hypernatremia; N39.0 Urinary tract infection, site not specified; N17.9 Acute kidney failure, unspecified; C20 Malignant neoplasm of rectum; E87.1 Hypo-osmolality and hyponatremia; D68.59 Other primary thrombophilia; I10 Essential (primary) hypertension; E11.9 Type 2 diabetes mellitus without complications; E04.2 Nontoxic multinodular goiter; D64.9 Anemia, unspecified; E78.5 Hyperlipidemia, unspecified; Z68.25 Body mass index [BMI] 25.0-25.9, adult; E88.09 Other disorders of plasma-protein metabolism, not elsewhere classified; I69.320 Aphasia following cerebral infarction; R40.2364 Coma scale, best motor response, obeys commands, 24 hours or more after hospital admission; R40.2144 Coma scale, eyes open, spontaneous, 24 hours or more after hospital admission